=== PATIENT | male | born 1940 | race Caucasian/White ===

== ENCOUNTER 2019-02-07 14:26 | Inpatient (IN) | payer MEDICARE, OTHER ==
[2019-02-07] MEDS ORDERED: Albuterol/Ipratropium 3.0-0.5 MG/3 ML Neb Soln NEB ONE ×2 (15:10→15:40)
--- NOTE | 2019-02-07 15:10 | EDM.PDOC ---
ED HPI GENERAL MEDICAL PROBLEM - General Chief Complaint: Respiratory Problem Stated Complaint: SOB Time Seen by Provider: 02/07/19 15:02 Source of Information: Reports: Patient History Limitations: Reports: Respiratory Distress (Marked.) - History of Present Illness INITIAL COMMENTS - FREE TEXT/NARRATIVE: 78-year-old male presents to the ED with increasing dyspnea with productive sounding cough and wheezing. Patient states she's gradually worsened over the last 10 days. Wraps intermittent chills and fever starting 3 days ago. He has spent the last 2 nights up on the couch hitting his sleep because he is unable to lie flat in bed. He has no history of heart failure. History of left lung cancer treated with radiation and chemotherapy. It's unclear whether not this was successful. He states he coughs up some whitish sputum once in a while. For the most part he can't get any phlegm up . O2 sats only 86% on room air. Comes up to 91% at complete rest. He is not on home oxygen therapy. He does not have a home nebulizer machine either. Appetite is fair using get to meals down a day and feels that he is regaining some of the weight that he lost from the radiation treatment. Bowel function is sluggish. States he is off his finasteride and Flomax and is voiding normally. States he becomes extremely short of breath just walking from the bedroom to the bathroom. Or bathroom to the kitchen. Onset: Gradual Onset Date: 01/24/19 (Actually getting worse over the last 2 weeks.) Duration: Week(s):, Chronic, Getting Worse Location: Reports: Chest (Increased chest congestion and dyspnea on minimal exertion. Now having orthopnea and PND.) Severity: Moderate Improves with: Reports: Rest Worsens with: Reports: Other (Activity or lying flat make it worse.) Context: Denies: Activity, Exercise, Lifting, Sick Contact, Trauma, Other Associated Symptoms: Reports: Cough, cough w sputum, Fever/Chills, Loss of Appetite, Malaise, Shortness of Breath, Weakness. 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 Neuropathic pain in his lower extremities and hands came on after chemotherapy.) - Related Data Allergies Allergy/AdvReac Type Severity Reaction Status Date / Time No Known Allergies Allergy Verified 02/07/19 14:36 Home Meds: Home Meds Albuterol Sulfate [Albuterol Sulfate Hfa] 1 inh INH ASDIRECTED PRN 02/07/19 [ History] Cartilage/Collagen/Bor/Hyalur [Joint Health Tablet] 1 tab PO DAILY 02/07/19 [ History] Finasteride [Proscar] 5 mg PO DAILY 02/07/19 [History] Fish Oil/[place]-3 Fatty Acids [Fish Oil 1,000 MG] 1,000 mg PO DAILY 02/07/19 [ History] Gabapentin [Neurontin] 300 mg PO DAILY 02/07/19 [History] Hydrocodone/Acetaminophen [Hydrocodon-Acetaminophen 5-325] 1 tab PO Q4H PRN [History] Levothyroxine Sodium [Synthroid] 25 mcg PO DAILY 02/07/19 [History] Omeprazole Magnesium [Prilosec Otc] 20 mg PO DAILY 02/07/19 [History] Sertraline [Zoloft] 25 mg PO DAILY 02/07/19 [History] Past Medical History Cardiovascular History: Reports: Hypertension Respiratory History: Reports: Other (See Below) Other Respiratory History: lung cancer Gastrointestinal History: Reports: GERD Genitourinary History: Reports: BPH 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, Peripheral (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 Gabapentin helps some but he often has take Percocet tablets at bedtime to get some sleep as well.) Endocrine/Metabolic History: Reports: Hypothyroidism Oncologic (Cancer) History: Reports: Lung (Left lung cancer diagnosed last fall. He was treated with a course of chemotherapy and 4 weeks of radiation. He was not a candidate for surgical resection of the tumor.) Social & Family History - Tobacco Use Smoking Status *Q: Former Smoker Used Tobacco, but Quit: Yes Month/Year Tobacco Last Used: 2005 - Caffeine Use Caffeine Use: Reports: Coffee - Recreational Drug Use Recreational Drug Use: No - Living Situation & Occupation Living situation: Reports: Single Occupation: Retired ED ROS GENERAL - Review of Systems Review Of Systems: See Below Constitutional: Reports: Chills, Malaise, Weakness, Fatigue, Decreased Appetite , Weight Loss. Denies: Fever HEENT: Reports: Glasses Respiratory: Reports: Shortness of Breath, Wheezing, Cough, Sputum (Severe paroxysmal cough). Denies: Pleuritic Chest Pain, Hemoptysis ( or a minimal sputum production usually clear in color ) Cardiovascular: Reports: Chest Pain, Blood Pressure Problem (From coughing so much.), Dyspnea on Exertion (Sometimes from coughing so hard severe and getting worse.), Lightheadedness, Orthopnea (Has had to sleep sitting up the last couple of nights.). Denies: Claudication ( Problem with hypertension), Edema Endocrine: Reports: Fatigue GI/Abdominal: Reports: Constipation (Issues with constipation at times.), Decreased Appetite : Reports: No Symptoms, Other (Is having a lot of problems with hesitancy and urinary frequency but better now off of chemotherapy.) Musculoskeletal: Reports: Neck Pain, Shoulder Pain, Back Pain (Knees hips low back and shoulders at times.), Joint Pain Skin: Reports: No Symptoms Neurological: Reports: No Symptoms Psychiatric: Reports: No Symptoms ED EXAM, GENERAL - Physical Exam Exam: See Below Exam Limited By: No Limitations General Appearance: Alert, WD/WN, Moderate Distress, Other (O2 sats 86% on room air. They come up to 91% at complete rest. He has hypertension. Respiratory distress 30/m at rest.) Eye Exam: Bilateral Eye: Normal Inspection Throat/Mouth: Other Head: Atraumatic, Normocephalic Neck: Normal Inspection, Supple, Non-Tender, Full Range of Motion. No: Carotid Bruit, Lymphadenopathy (L), Lymphadenopathy (R) Respiratory/Chest: Respiratory Distress (Tachypnea at rest 30/m with O2 sats of only 86% on room air.), Decreased Breath Sounds (Decreased air into the lower 25 % lung wong bilaterally.), Rhonchi (Severe throughout both lung wong), Wheezing Cardiovascular: Regular Rate, Rhythm (Resting tachycardia 10 8/m), No Edema, No Gallop, No JVD, No Murmur, No Rub, Tachycardia Peripheral Pulses: 1+: Posterior Tibial (L), Posterior Tibial (R), Dorsalis Pedis (L), Dorsalis Pedis (R) GI/Abdominal: Normal Bowel Sounds, Soft, Non-Tender, No Organomegaly, No Abnormal Bruit (Findings distended and epigastrium. It's slightly tympanitic to percussion but with some degree of aerophagia.), No Mass, Pelvis Stable, Distended Back Exam: Normal Inspection, Full Range of Motion. No: CVA Tenderness (L), CVA Tenderness (R) Extremities: Normal Inspection, Non-Tender, No Pedal Edema, Other Neurological: Alert, Oriented, CN II-XII Intact, Normal Cognition Psychiatric: Normal Affect, Normal Mood Skin Exam: Warm, Dry, Intact, Normal Color, No Rash EKG INTERPRETATION EKG Date: 02/07/19 Time: 14:53 Rhythm: Other Rate (Beats/Min): 103 [place]: LAD-Left [place] Deviation (-25) P-Wave: Enlarged (Consider biatrial hypertrophy) QRS: Other (Left ventricular hypertrophy with strain pattern Q waves in V1 and V2. Consider old anteroseptal myocardial infarction.) ST-T: Other (Early repolarization pattern diffusely. No signs of of ischemia) QT: Normal EKG Interpretation Comments: Abnormal ECG Course - Vital Signs Last Recorded V/S: Last Vital Signs Temp 36.7 C 02/07/19 14:32 Pulse 118 H 02/07/19 18:23 Resp 30 H 02/07/19 18:23 BP 140/78 02/07/19 18:23 Pulse Ox 92 L 02/07/19 18:23 - Orders/Labs/Meds Orders: Active Orders 24 hr Category Date Time Status EKG 12 Lead [EKG Documentation Completion] [RC] STAT Care 02/07/19 14:50 Active EKG Documentation Completion [RC] STAT Care 02/07/19 15:11 Inactive Oxygen Therapy [RC] ASDIRECTED Care 02/07/19 15:12 Active RT Aerosol Therapy [RC] ASDIRECTED Care 02/07/19 15:10 Active RT Aerosol Therapy [RC] ASDIRECTED Care 02/07/19 15:11 Active CULTURE BLOOD [BC] Stat Lab 02/07/19 15:25 Received CULTURE BLOOD [BC] Stat Lab 02/07/19 15:48 Received Sodium Chloride 0.9% [Normal Saline] 1,000 ml Med 02/07/19 15:15 Active IV ASDIRECTED Blood Culture x2 Reflex Set [OM.PC] Stat Oth 02/07/19 15:13 Ordered Medication Orders Sodium Chloride (Normal Saline) 1,000 mls @ 75 mls/hr IV ASDIRECTED MANUEL Last Admin: 02/07/19 15:54 Dose: 75 mls/hr Labs: Laboratory Tests 02/07/19 02/07/19 02/07/19 Range/Units 15:25 15:25 15:25 WBC 8.06 (4.23-9.07) K/mm3 RBC 4.41 L (4.63-6.08) M/mm3 Hgb 12.6 L (13.7-17.5) gm/L Hct 37.6 L (40.1-51.0) % MCV 85.3 (79.0-92.2) fl MCH 28.6 (25.7-32.2) pg MCHC 33.5 (32.2-35.5) g/dl RDW Std Deviation 44.0 H (35.1-43.9) fL Plt Count 291 (163-337) K/mm3 MPV 9.4 (9.4-12.3) fl Neutrophils % (Manual) 78 H (40-60) % Band Neutrophils % 3 (0-10) % Lymphocytes % (Manual) 6 L (20-40) % Atypical Lymphs % 9 % Monocytes % (Manual) 3 (2-10) % Eosinophils % (Manual) 1 (0.8-7.0) % Basophils % (Manual) 0 L (0.2-1.2) Platelet Estimate Adequate RBC Morph Comment Normal ESR 42 H (0-15) mm/hr Sodium 133 L (136-145) mEq/L Potassium 3.8 (3.5-5.1) mEq/L Chloride 96 L (98-107) mEq/L Carbon Dioxide 32 (21-32) mEq/L Anion Gap 8.8 (5-15) BUN 14 (7-18) mg/dL Creatinine 1.0 (0.7-1.3) mg/dL Est Cr Clr Drug Dosing 56.92 mL/min Estimated GFR (MDRD) > 60 (>60) mL/min BUN/Creatinine Ratio 14.0 (14-18) Glucose 115 (83-115) mg/dL Calcium 8.8 (8.5-10.1) mg/dL Magnesium 1.6 L (1.8-2.4) mg/dl Total Bilirubin 0.3 (0.2-1.0) mg/dL AST 26 (15-37) U/L ALT 30 (16-63) U/L Alkaline Phosphatase 100 (46-116) U/L CK-MB (CK-2) 1.6 (0-3.6) ng/ml Troponin I < 0.017 (0.00-0.056) ng/mL C-Reactive Protein 2.2 H* (<1.0) mg/dL NT-Pro-B Natriuret Pep (0-450) pg/mL Total Protein 7.7 (6.4-8.2) g/dl Albumin 3.3 L (3.4-5.0) g/dl Globulin 4.4 gm/dL Albumin/Globulin Ratio 0.8 L (1-2) Urine Color (Yellow) Urine Appearance (Clear) Urine pH (5.0-8.0) Ur Specific [place] (1.005-1.030) Urine Protein (Negative) Urine Glucose (UA) (Negative) Urine Ketones (Negative) Urine Occult Blood (Negative) Urine Nitrite (Negative) Urine Bilirubin (Negative) Urine Urobilinogen (0.2-1.0) Ur Leukocyte Esterase (Negative) Urine RBC (0-5) /hpf Urine WBC (0-5) /hpf Ur Squamous Epith Cells (0-5) /hpf Urine Bacteria (FEW) /hpf Urine Mucus (FEW) /hpf 02/07/19 02/07/19 Range/Units 15:25 15:40 WBC (4.23-9.07) K/mm3 RBC (4.63-6.08) M/mm3 Hgb (13.7-17.5) gm/L Hct (40.1-51.0) % MCV (79.0-92.2) fl MCH (25.7-32.2) pg MCHC (32.2-35.5) g/dl RDW Std Deviation (35.1-43.9) fL Plt Count (163-337) K/mm3 MPV (9.4-12.3) fl Neutrophils % (Manual) (40-60) % Band Neutrophils % (0-10) % Lymphocytes % (Manual) (20-40) % Atypical Lymphs % % Monocytes % (Manual) (2-10) % Eosinophils % (Manual) (0.8-7.0) % Basophils % (Manual) (0.2-1.2) Platelet Estimate RBC Morph Comment ESR (0-15) mm/hr Sodium (136-145) mEq/L Potassium (3.5-5.1) mEq/L Chloride (98-107) mEq/L Carbon Dioxide (21-32) mEq/L Anion Gap (5-15) BUN (7-18) mg/dL Creatinine (0.7-1.3) mg/dL Est Cr Clr Drug Dosing mL/min Estimated GFR (MDRD) (>60) mL/min BUN/Creatinine Ratio (14-18) Glucose (83-115) mg/dL Calcium (8.5-10.1) mg/dL Magnesium (1.8-2.4) mg/dl Total Bilirubin (0.2-1.0) mg/dL AST (15-37) U/L ALT (16-63) U/L Alkaline Phosphatase (46-116) U/L CK-MB (CK-2) (0-3.6) ng/ml Troponin I (0.00-0.056) ng/mL C-Reactive Protein (<1.0) mg/dL NT-Pro-B Natriuret Pep 80 (0-450) pg/mL Total Protein (6.4-8.2) g/dl Albumin (3.4-5.0) g/dl Globulin gm/dL Albumin/Globulin Ratio (1-2) Urine Color Light yellow (Yellow) Urine Appearance Clear (Clear) Urine pH 6.5 (5.0-8.0) Ur Specific [place] 1.025 (1.005-1.030) Urine Protein 1+ H (Negative) Urine Glucose (UA) Negative (Negative) Urine Ketones Negative (Negative) Urine Occult Blood Trace-intact H (Negative) Urine Nitrite Negative (Negative) Urine Bilirubin Negative (Negative) Urine Urobilinogen 0.2 (0.2-1.0) Ur Leukocyte Esterase Negative (Negative) Urine RBC Not seen (0-5) /hpf Urine WBC Not seen (0-5) /hpf Ur Squamous Epith Cells Not seen (0-5) /hpf Urine Bacteria Occasional (FEW) /hpf Urine Mucus Few (FEW) /hpf Meds: Medications Generic Name Dose Route Start Last Admin Trade Name Freq PRN Reason Stop Dose Admin Sodium Chloride 1,000 mls @ 75 mls/hr 02/07/19 15:15 02/07/19 15:54 Normal Saline IV 75 mls/hr ASDIRECTED MANUEL Administration Discontinued Medications Generic Name Dose Route Start Last Admin Trade Name [place] PRN Reason Stop Dose Admin Albuterol/Ipratropium 3 ml 02/07/19 15:10 02/07/19 15:41 Duoneb 3.0-0.5 Mg/3 Ml NEB 02/07/19 15:11 3 ml ONETIME ONE Administration Albuterol/Ipratropium 3 ml 02/07/19 15:40 02/07/19 16:24 Duoneb 3.0-0.5 Mg/3 Ml NEB 02/07/19 15:41 3 ml ONETIME ONE Administration Hydralazine HCl 10 mg 02/07/19 15:36 02/07/19 15:55 Apresoline IVPUSH 02/07/19 15:37 10 mg ONETIME ONE Administration Lorazepam 0.5 mg 02/07/19 16:10 02/07/19 16:16 Ativan IVPUSH 02/07/19 16:11 0.5 mg ONETIME ONE Administration Methylprednisolone Sodium Succinate 125 mg 02/07/19 15:26 02/07/19 15:58 Solu-Medrol IVPUSH 02/07/19 15:27 125 mg ONETIME ONE Administration - Radiology Interpretation Free Text/Narrative:: 78-year-old male diagnosed with lung cancer 8 months ago and treated with chemotherapy and radiation presents to the ED with gradually worsening dyspnea on minimal exertion and paroxysmal productive sounding cough. Patient is wheezing throughout both lung wong with tachypnea at 30/m O2 sats are 86% on room air. At complete rest he is at 91%. Desaturates on minimal exertion. Lungs sound congested rhonchi throughout all lung wong with bilateral expiratory wheezes throughout both lung wong. Productive sounding cough although he states he rarely gets up any sputum and if he does it's been clear. No fever but perhaps some chills the last 3 days. Appetite has been poor. No history of congestive failure. Plan 1 view chest x-ray. ECG. DuoNeb 2 about a half an hour apart. He will likely require intravenous steroids and I will give him Solu -Medrol 125 mg IV. Routine labs to be collected including a BNP to make sure he does not have a component of congestive heart failure causing his current respiratory distress. Placed on oxygen at 3 L/m by nasal cannula. - Re-Assessments/Exams Free Text/Narrative Re-Assessment/Exam: 02/07/19 15:36 blood pressure remains markedly elevated currently 205/117. I will administer hydralazine 10 mg IV at this time 02/07/19 16:04 chest x-ray done portably reveals a lot of fibrosis and consolidation left upper lobe of the lung. This is presumably the site of his lung cancer which was treated with chemotherapy and radiation. It is impossible to tell by looking at the films whether or not there is still tumor in this area versus radiation-induced necrosis and fibrosis. The right lung field shows mild fibrosis in the right upper lobe. Is no pleural effusion. Right ex silhouette appears to be normal. 02/07/19 16:12 should is extremely anxious. He keeps on asking the nurse to bump up his oxygen which is already at 9798%. There is significant air hunger however. We'll try Ativan 0.5 mg IV to see if we can reduce his air hunger and his hypertension. His BP is down to 170 systolic. Diastolic is difficult to ascertain because he won't hold still long enough. 02/07/19 16:34 blood pressure is markedly improved to 135/78. Heart rate remains elevated at 119. Sinus tachycardia 02/07/19 16:36 White count is 8.06 differential pending hemoglobin is 12.6 with hematocrit of 37.6. Glucose 291,000. Sodium 133 with a potassium of 3.8. Toward 96 with a bicarbonate of 32. Anion gap is 8.8. BUN is 14. Creatinine is 1.0. GFR is greater than 60. Liver function is normal. Troponin I is less than 0.017. C-reactive protein is 2.2. BNP is 80. Total protein is 7.7. Urinalysis shows 1+ proteinuria trace of occult blood. Occasional bacteria appreciated. Therefore all of his palms. Be pulmonary in origin. He is not appear to show any signs or symptoms of cardiac decompensation. 02/07/19 18:26 Differential shows 78% neutrophils and 3% band cells. Sedimentation rate is elevated at 42. Urinalysis is negative. Patient did not do well off of oxygen. He desaturated to 88% on room air. He has improved airflow to both lung bases but still remains extremely wheezy throughout both lung wong and blockers. Present he is not exhibiting a fever. Lab suggest the possibility of fever with elevated sedimentation rate and CRP. I believe he needs admission to the hospital due to hypoxia. I will therefore discuss the case with Dr. Dominguez concrete pipe plant supervisor hospitalist with a view to admission to the hospital the [facility] surgery floor on telemetry. 02/07/19 18:36 I did speak with Dr. Dominguez concrete pipe plant supervisor hospitalist and patient will be admitted to the med surgery floor on telemetry.This is exacerbation of COPD. Persistent I suspect left upper lobe lobe lung cancer. Hypoxia at room air 86-88% primary reason for coming into the hospital. Hopefully will improve with steroids and regular use of DuoNeb/albuterol to help clear lung secretions. Mary Ellen monitored closely for development of fever. Departure - Departure Time of Disposition: 18:39 Disposition: Admitted As Inpatient 66 Condition: Poor Clinical Impression: COPD exacerbation, Hyponatremia Carcinoma of lung Qualifiers: Laterality: left Qualified Code(s): C34.92 - Malignant neoplasm of unspecified part of left bronchus or lung - Discharge Information *PRESCRIPTION DRUG MONITORING PROGRAM REVIEWED*: Not Applicable *COPY OF PRESCRIPTION DRUG MONITORING REPORT IN PATIENT CARI: Not Applicable - My Orders Last 24 Hours: My Active Orders 02/07/19 14:50 EKG 12 Lead [EKG Documentation Completion] [RC] STAT 02/07/19 15:10 RT Aerosol Therapy [RC] ASDIRECTED 02/07/19 15:11 EKG Documentation Completion [RC] STAT RT Aerosol Therapy [RC] ASDIRECTED 02/07/19 15:12 Oxygen Therapy [RC] ASDIRECTED 02/07/19 15:13 Blood Culture x2 Reflex Set [OM.PC] Stat 02/07/19 15:15 Sodium Chloride 0.9% [Normal Saline] 1,000 ml IV ASDIRECTED 02/07/19 15:25 CULTURE BLOOD [BC] Stat 02/07/19 15:48 CULTURE BLOOD [BC] Stat - Assessment/Plan Last 24 Hours: My Active Orders 02/07/19 14:50 EKG 12 Lead [EKG Documentation Completion] [RC] STAT 02/07/19 15:10 RT Aerosol Therapy [RC] ASDIRECTED 02/07/19 15:11 EKG Documentation Completion [RC] STAT RT Aerosol Therapy [RC] ASDIRECTED 02/07/19 15:12 Oxygen Therapy [RC] ASDIRECTED 02/07/19 15:13 Blood Culture x2 Reflex Set [OM.PC] Stat 02/07/19 15:15 Sodium Chloride 0.9% [Normal Saline] 1,000 ml IV ASDIRECTED 02/07/19 15:25 CULTURE BLOOD [BC] Stat 02/07/19 15:48 CULTURE BLOOD [BC] Stat
[2019-02-07] MEDS ORDERED: methylPREDNISolone Sodium Succinate 125 MG/2 ML SDV IVPUSH ONE (15:26)
[2019-02-07] MEDS ORDERED: hydrALAZINE 20 MG/ML SDV IVPUSH ONE (15:36)
[2019-02-07] MEDS: Sodium Chloride 0.9% 1,000 ML IV SCH (15:54)
[2019-02-07] MEDS ORDERED: LORazepam 2 MG/ML SDV IVPUSH ONE (16:10)
--- NOTE | 2019-02-07 17:15 | CR ---
Chest: Frontal view of the chest was obtained. Comparison: No prior chest x-ray. Left upper lung mass is seen with radiating interstitial densities. Uncertain how much of this represents pulmonary mass with radiation change versus possible hemorrhage or even infection. Right lung is clear. Heart size is normal. Slightly prominent right-sided mediastinal soft tissues is seen. Difficult to exclude mild mediastinal adenopathy. Bony structures are grossly intact. Impression: 1. Left upper lung density as noted above. 2. Questionable widening within the right mediastinum as noted above. Diagnostic code #3
[2019-02-07] MEDS ORDERED: Albuterol 0.083% 2.5 MG/3 ML Neb Soln NEB PRN (20:25)
[2019-02-07] MEDS ORDERED: Ondansetron 4 MG Tab.DIS PO PRN (20:52)
--- NOTE | 2019-02-07 21:03 | PCM.HP ---
H&P History of Present Illness - General Date of Service: 02/07/19 Admit Problem/Dx: Admission Diagnosis/Problem Admission Diagnosis/Problem Hypoxia Source of Information: Patient, Police History Limitations: Reports: Respiratory Distress, Other (Poor historian) - History of Present Illness Initial Comments - Free Text/Narative: 78-year-old male with history of lung cancer treated and finished treatment in May 2018. Comes into the emergency room with worsening shortness of breath and cough. Patient has COPD. He states that he often gets short of breath and dyspneic. This is more severe. He states that he has chest pain with deep breaths or with taking his pills. Patient also has hypertension and has not been taking his blood pressure medications. When questioning him it appears that he is on lisinopril of unknown dose. When patient presented to the emergency room his O2 sats were only 86%. He states he has had some chills and fever starting approximately 3 days ago. He is having difficulty lying flat because of shortness of breath. He has no history of heart failure. In the emergency room they did get his oxygenation 91% with complete rest. He is not on home O2. He states his appetite is fair and even trying to regain some of his weight that he lost radiation treatment. He is also not taking his finasteride or Flomax but is voiding normally. He becomes extremely short of breath just walking from the bedroom to the bathroom. Chest x-ray was performed which showed left upper lobe changes consistent with either infection, hemorrhage, or pulmonary mass with radiation change. Patient was given supplemental 125 mg IV and DuoNeb's 2. Patient significantly elevated blood pressure of 205/117 and he was given hydralazine 10 mg IV. Patient was given Ativan 0.5 mg IV to decrease his air hunger and hypertension. Patient was very anxious and kept asking to have his oxygen turned up. - Related Data Allergies/Adverse Reactions: Allergies Allergy/AdvReac Type Severity Reaction Status Date / Time No Known Allergies Allergy Verified 02/07/19 14:36 Home Medications: Home Meds Albuterol Sulfate [Albuterol Sulfate Hfa] 1 inh INH ASDIRECTED PRN 02/07/19 [ History] Cartilage/Collagen/Bor/Hyalur [Joint Health Tablet] 1 tab PO DAILY 02/07/19 [ History] Finasteride [Proscar] 5 mg PO DAILY 02/07/19 [History] Fish Oil/Bailey-3 Fatty Acids [Fish Oil 1,000 MG] 1,000 mg PO DAILY 02/07/19 [ History] Gabapentin [Neurontin] 300 mg PO DAILY 02/07/19 [History] Hydrocodone/Acetaminophen [Hydrocodon-Acetaminophen 5-325] 1 tab PO Q4H PRN [History] Levothyroxine Sodium [Synthroid] 25 mcg PO DAILY 02/07/19 [History] Omeprazole Magnesium [Prilosec Otc] 20 mg PO DAILY 02/07/19 [History] Sertraline [Zoloft] 25 mg PO DAILY 02/07/19 [History] Past Medical History HEENT History: Reports: Hard of Hearing, Impaired Vision Cardiovascular History: Reports: Hypertension Respiratory History: Reports: Pneumonia, Recurrent, Other (See Below) Other Respiratory History: lung cancer Gastrointestinal History: Reports: GERD Genitourinary History: Reports: BPH Musculoskeletal History: Reports: None 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, Peripheral Psychiatric History: Reports: None, Depression Endocrine/Metabolic History: Reports: Hypothyroidism Oncologic (Cancer) History: Reports: Lung - Infectious Disease History Infectious Disease History: Reports: None - Past Surgical History HEENT Surgical History: Reports: None Cardiovascular Surgical History: Reports: None Respiratory Surgical History: Reports: Lung Biopsies GI Surgical History: Reports: None Male Surgical History: Reports: None Endocrine Surgical History: Reports: None Neurological Surgical History: Reports: None Musculoskeletal Surgical History: Reports: None Oncologic Surgical History: Reports: None Social & Family History - Family History Family Medical History: Noncontributory - Tobacco Use Smoking Status *Q: Former Smoker Years of Tobacco use: 15 Used Tobacco, but Quit: Yes Month/Year Tobacco Last Used: quit in 1974 Second Hand Smoke Exposure: No - Caffeine Use Caffeine Use: Reports: None - Recreational Drug Use Recreational Drug Use: No - Living Situation & Occupation Living situation: Reports: Single Occupation: Retired H&P Review of Systems - Review of Systems: Review Of Systems: ROS reveals no pertinent complaints other than HPI. Exam - Exam Exam: See Below - Vital Signs Vital Signs: Last Vital Signs Temp 99.1 F 02/07/19 19:34 Pulse 111 H 02/07/19 19:34 Resp 28 H 02/07/19 19:34 BP 142/83 H 02/07/19 19:34 Pulse Ox 94 L 02/07/19 19:34 Weight: 172 lb 9.6 oz - Exam Quality Assessment: Supplemental Oxygen General: Cooperative, Mild Distress, Sedated HEENT: Conjunctiva Clear, Mucosa Moist & [place], Posterior Pharynx Clear Neck: Supple, Trachea Midline Lungs: Rhonchi (Rhonchi throughout both lung wong). No: Normal Respiratory Effort (Mildly increased respiratory rate and effort.) Cardiovascular: Regular Rate, Regular Rhythm GI/Abdominal Exam: Normal Bowel Sounds, Soft, Non-Tender, No Distention Back Exam: Normal Inspection, Full Range of Motion Extremities: Normal Inspection, Normal Range of Motion, No Pedal Edema, Normal Capillary Refill Neurological: Cranial Nerves Intact, Reflexes Equal Bilateral Neuro Extensive - Mental Status: Inattentive. No: Normal Cognition Psychiatric: No: Alert - Patient Data Lab Results Last 24 hrs: Laboratory Results - last 24 hr 02/07/19 02/07/19 02/07/19 Range/Units 15:25 15:25 15:25 WBC 8.06 (4.23-9.07) K/mm3 RBC 4.41 L (4.63-6.08) M/mm3 Hgb 12.6 L (13.7-17.5) gm/L Hct 37.6 L (40.1-51.0) % MCV 85.3 (79.0-92.2) fl MCH 28.6 (25.7-32.2) pg MCHC 33.5 (32.2-35.5) g/dl RDW Std Deviation 44.0 H (35.1-43.9) fL Plt Count 291 (163-337) K/mm3 MPV 9.4 (9.4-12.3) fl Neutrophils % (Manual) 78 H (40-60) % Band Neutrophils % 3 (0-10) % Lymphocytes % (Manual) 6 L (20-40) % Atypical Lymphs % 9 % Monocytes % (Manual) 3 (2-10) % Eosinophils % (Manual) 1 (0.8-7.0) % Basophils % (Manual) 0 L (0.2-1.2) Platelet Estimate Adequate RBC Morph Comment Normal ESR 42 H (0-15) mm/hr Sodium 133 L (136-145) mEq/L Potassium 3.8 (3.5-5.1) mEq/L Chloride 96 L (98-107) mEq/L Carbon Dioxide 32 (21-32) mEq/L Anion Gap 8.8 (5-15) BUN 14 (7-18) mg/dL Creatinine 1.0 (0.7-1.3) mg/dL Est Cr Clr Drug Dosing 56.92 mL/min Estimated GFR (MDRD) > 60 (>60) mL/min BUN/Creatinine Ratio 14.0 (14-18) Glucose 115 (83-115) mg/dL Calcium 8.8 (8.5-10.1) mg/dL Magnesium 1.6 L (1.8-2.4) mg/dl Total Bilirubin 0.3 (0.2-1.0) mg/dL AST 26 (15-37) U/L ALT 30 (16-63) U/L Alkaline Phosphatase 100 (46-116) U/L CK-MB (CK-2) 1.6 (0-3.6) ng/ml Troponin I < 0.017 (0.00-0.056) ng/mL C-Reactive Protein 2.2 H* (<1.0) mg/dL NT-Pro-B Natriuret Pep (0-450) pg/mL Total Protein 7.7 (6.4-8.2) g/dl Albumin 3.3 L (3.4-5.0) g/dl Globulin 4.4 gm/dL Albumin/Globulin Ratio 0.8 L (1-2) Urine Color (Yellow) Urine Appearance (Clear) Urine pH (5.0-8.0) Ur Specific Reserve (1.005-1.030) Urine Protein (Negative) Urine Glucose (UA) (Negative) Urine Ketones (Negative) Urine Occult Blood (Negative) Urine Nitrite (Negative) Urine Bilirubin (Negative) Urine Urobilinogen (0.2-1.0) Ur Leukocyte Esterase (Negative) Urine RBC (0-5) /hpf Urine WBC (0-5) /hpf Ur Squamous Epith Cells (0-5) /hpf Urine Bacteria (FEW) /hpf Urine Mucus (FEW) /hpf 02/07/19 02/07/19 Range/Units 15:25 15:40 WBC (4.23-9.07) K/mm3 RBC (4.63-6.08) M/mm3 Hgb (13.7-17.5) gm/L Hct (40.1-51.0) % MCV (79.0-92.2) fl MCH (25.7-32.2) pg MCHC (32.2-35.5) g/dl RDW Std Deviation (35.1-43.9) fL Plt Count (163-337) K/mm3 MPV (9.4-12.3) fl Neutrophils % (Manual) (40-60) % Band Neutrophils % (0-10) % Lymphocytes % (Manual) (20-40) % Atypical Lymphs % % Monocytes % (Manual) (2-10) % Eosinophils % (Manual) (0.8-7.0) % Basophils % (Manual) (0.2-1.2) Platelet Estimate RBC Morph Comment ESR (0-15) mm/hr Sodium (136-145) mEq/L Potassium (3.5-5.1) mEq/L Chloride (98-107) mEq/L Carbon Dioxide (21-32) mEq/L Anion Gap (5-15) BUN (7-18) mg/dL Creatinine (0.7-1.3) mg/dL Est Cr Clr Drug Dosing mL/min Estimated GFR (MDRD) (>60) mL/min BUN/Creatinine Ratio (14-18) Glucose (83-115) mg/dL Calcium (8.5-10.1) mg/dL Magnesium (1.8-2.4) mg/dl Total Bilirubin (0.2-1.0) mg/dL AST (15-37) U/L ALT (16-63) U/L Alkaline Phosphatase (46-116) U/L CK-MB (CK-2) (0-3.6) ng/ml Troponin I (0.00-0.056) ng/mL C-Reactive Protein (<1.0) mg/dL NT-Pro-B Natriuret Pep 80 (0-450) pg/mL Total Protein (6.4-8.2) g/dl Albumin (3.4-5.0) g/dl Globulin gm/dL Albumin/Globulin Ratio (1-2) Urine Color Light yellow (Yellow) Urine Appearance Clear (Clear) Urine pH 6.5 (5.0-8.0) Ur Specific Reserve 1.025 (1.005-1.030) Urine Protein 1+ H (Negative) Urine Glucose (UA) Negative (Negative) Urine Ketones Negative (Negative) Urine Occult Blood Trace-intact H (Negative) Urine Nitrite Negative (Negative) Urine Bilirubin Negative (Negative) Urine Urobilinogen 0.2 (0.2-1.0) Ur Leukocyte Esterase Negative (Negative) Urine RBC Not seen (0-5) /hpf Urine WBC Not seen (0-5) /hpf Ur Squamous Epith Cells Not seen (0-5) /hpf Urine Bacteria Occasional (FEW) /hpf Urine Mucus Few (FEW) /hpf Result Diagrams: 02/07/19 15:25 02/07/19 15:25 - Problem List (1) COPD exacerbation SNOMED Code(s): 929246699 ICD Code: J44.1 - CHRONIC OBSTRUCTIVE PULMONARY DISEASE W (ACUTE) EXACERBATION Status: Acute Current Visit: Yes (2) Carcinoma of lung SNOMED Code(s): 315578065 ICD Code: C34.90 - MALIGNANT NEOPLASM OF UNSP PART OF UNSP BRONCHUS OR LUNG Status: Acute Current Visit: Yes Qualifiers: Laterality: left Qualified Code(s): C34.92 - Malignant neoplasm of unspecified part of left bronchus or lung (3) Hyponatremia SNOMED Code(s): 56066822 ICD Code: E87.1 - HYPO-OSMOLALITY AND HYPONATREMIA Status: Acute Current Visit: Yes (4) HTN (hypertension) SNOMED Code(s): 91014266 ICD Code: I10 - ESSENTIAL (PRIMARY) HYPERTENSION Status: Acute Current Visit: Yes Problem List Initiated/Reviewed/Updated: Yes Orders Last 24hrs: Active Orders 24 hr Category Date Time Status Admission Status [Patient Status] [ADT] Routine ADT 02/07/19 18:41 Active Antiembolic Devices [RC] PER UNIT ROUTINE Care 02/07/19 20:54 Ordered Bedrest Bathroom Privileges [RC] ASDIRECTED Care 02/07/19 20:52 Ordered EKG Documentation Completion [RC] STAT Care 02/07/19 15:11 Inactive Flutter Valve Therapy [RT Chest Physiotherapy] [RC] Care 02/07/19 20:24 Active ASDIRECTED Height and Weight [RC] DAILY Care 02/07/19 20:52 Ordered Incentive Spirometry [RT Incentive Spirometry] [RC] Care 02/07/19 20:23 Active ASDIRECTED Intake and Output [RC] QSHIFT Care 02/07/19 20:52 Ordered Oxygen Therapy [RC] ASDIRECTED Care 02/07/19 15:12 Active Oxygen Therapy [RC] PRN Care 02/07/19 20:52 Ordered RT Aerosol Therapy [RC] ASDIRECTED Care 02/07/19 20:26 Active Up With Assistance [RC] ASDIRECTED Care 02/07/19 20:52 Ordered VTE/DVT Education [RC] PER UNIT ROUTINE Care 02/07/19 20:52 Ordered Vital Signs [RC] Q4H Care 02/07/19 20:52 Ordered Consult to Respiratory Therapy [Respiratory Care Assess Cons 02/07/19 20:27 Active and Treatment] [CONS] Routine OT Evaluation and Treatment [CONS] Routine Cons 02/07/19 20:52 Ordered PT Evaluation and Treatment [CONS] Routine Cons 02/07/19 20:52 Ordered Regular Diet [DIET] Diet 02/07/19 Breakfast Ordered CBC WITH AUTO DIFF [HEME] AM Lab 02/08/19 05:11 Ordered COMPREHENSIVE METABOLIC PN,CMP [CHEM] AM Lab 02/08/19 05:11 Ordered CULTURE BLOOD [BC] Stat Lab 02/07/19 15:25 Received CULTURE BLOOD [BC] Stat Lab 02/07/19 15:48 Received CULTURE SPUTUM + SMEAR [RM] Stat Lab 02/07/19 20:52 Ordered MAGNESIUM [CHEM] AM Lab 02/08/19 05:11 Ordered RESPIRATORY PANEL Routine Lab 02/07/19 20:27 Ordered Acetaminophen [Tylenol] Med 02/07/19 20:52 Ordered 650 mg PO Q4H PRN Albuterol [Proventil Neb Soln] Med 02/07/19 20:25 Active 2.5 mg NEB Q2H PRN Albuterol/Ipratropium [DuoNeb 3.0-0.5 MG/3 ML] Med 02/07/19 22:00 Active 3 ml NEB Q4HRRT Gabapentin [Neurontin] Med 02/07/19 21:00 Active 300 mg PO BEDTIME Levothyroxine Med 02/08/19 06:00 Active 25 mcg PO ACBREAKFAST Ondansetron [Zofran ODT] Med 02/07/19 20:52 Ordered 4 mg PO Q4H PRN Pantoprazole [ProTONIX] Med 02/08/19 07:00 Active 40 mg PO DAILY@0700 Sertraline [Zoloft] Med 02/08/19 09:00 Active 25 mg PO DAILY Sodium Chloride 0.9% [Normal Saline] 1,000 ml Med 02/07/19 15:15 Active IV ASDIRECTED cefTRIAXone [Rocephin] Med 02/08/19 20:50 Ordered 1 gm IM Q24H guaiFENesin [Mucinex] Med 02/07/19 21:00 Active 600 mg PO BID predniSONE Med 02/07/19 21:00 Ordered 40 mg PO WITHBREAKFAST Blood Culture x2 Reflex Set [OM.PC] Stat Oth 02/07/19 15:13 Ordered Sequential Compression Device [OM.PC] Per Unit Routine Oth 02/07/19 20:53 Ordered Resuscitation Status Routine Resus Stat 02/07/19 19:55 Ordered Medication Orders Albuterol (Proventil Neb Soln) 2.5 mg NEB Q2H PRN PRN Reason: Dyspnea Albuterol/Ipratropium (Duoneb 3.0-0.5 Mg/3 Ml) 3 ml NEB Q4HRRT [facility] Ceftriaxone Sodium (Rocephin) 1 gm IM Q24H [facility] Gabapentin (Neurontin) 300 mg PO BEDTIME [facility] Guaifenesin (Mucinex) 600 mg PO BID [facility] Sodium Chloride (Normal Saline) 1,000 mls @ 75 mls/hr IV ASDIRECTED MANUEL Last Admin: 02/07/19 15:54 Dose: 75 mls/hr Levothyroxine Sodium (Levothyroxine) 25 mcg PO ACBREAKFAST [facility] Pantoprazole Sodium (Protonix) 40 mg PO DAILY@0700 [facility] Prednisone (Prednisone) 40 mg PO WITHBREAKFAST MANUEL Sertraline HCl (Zoloft) 25 mg PO DAILY [facility] Assessment/Plan Comment:: Chronic obstructive pulmonary disease with acute exacerbation * Patient comes in with increasing cough with dyspnea and hypoxia. * Patient had some improvement with 2 DuoNeb treatments in the emergency room. * Chest x-ray is critical for left upper lobe infiltrate. * Given Solu-Medrol in the emergency room. * Patient will start Rocephin 1 g IV every 24 hours. * Prednisone 40 mg tonight and 40 mg in the morning. * DuoNeb every 4 hours and albuterol nebulizer every 2 hours when necessary * Respiratory therapy consult, incentive spirometer, flutter valve Hypertension * Patient has significantly elevated blood pressure in the emergency room requiring IV hydralazine 10 mg. * Patient believes he was on lisinopril in the past but did not know the dose. * I will start him on lisinopril 10 mg daily at bedtime. Hypomagnesemia/hyponatremia * 2 g IV magnesium and recheck in the morning * Repeat CMP in the morning Chronic medical problems to include: Lung cancer, hypothyroidism, BPH, depression CODE STATUS: Full code Anticipated length of stay 3 days
[2019-02-07] MEDS ORDERED: Magnesium Sulfate/Water 2 GM in Premix Bag 1 BAG IV ONE (21:06)
[2019-02-07] MEDS: Albuterol/Ipratropium 3.0-0.5 MG/3 ML Neb Soln NEB SCH (21:41)
[2019-02-07] MEDS: predniSONE 20 MG Tab PO SCH (21:52)
[2019-02-07] MEDS: guaiFENesin 600 MG Tab.ER PO SCH (21:52)
[2019-02-07] MEDS: Gabapentin 300 MG Cap PO SCH (21:53)
[2019-02-07] MEDS: Lisinopril 10 MG Tab PO SCH (21:53)
[2019-02-08] MEDS: Albuterol/Ipratropium 3.0-0.5 MG/3 ML Neb Soln NEB SCH ×6 (01:35→21:26)
[2019-02-08] MEDS: Acetaminophen 325 MG Tab PO PRN ×2 (02:57→08:59)
[2019-02-08] MEDS: cefTRIAXone 1 GM in Sodium Chloride 0.9% 100 ML IV SCH (03:00)
[2019-02-08] MEDS: Levothyroxine 25 MCG Tab PO SCH (06:31)
[2019-02-08] MEDS: Pantoprazole 40 MG Tab.CR PO SCH (06:31)
[2019-02-08] MEDS: Sodium Chloride 0.9% 1,000 ML IV SCH ×2 (06:41→21:02)
[2019-02-08] MEDS: predniSONE 20 MG Tab PO SCH (07:31)
[2019-02-08] MEDS: Sertraline 25 MG Tab PO SCH (08:11)
[2019-02-08] MEDS: guaiFENesin 600 MG Tab.ER PO SCH ×2 (08:14→21:04)
[2019-02-08] MEDS: Sodium Chloride/Potassium Chloride Tab PO SCH ×2 (08:14→21:05)
[2019-02-08] MEDS: Acetaminophen/HYDROcodone 325-5 MG Tab PO PRN ×2 (10:29→15:56)
--- NOTE | 2019-02-08 11:47 | PCM.PN ---
- General Info Date of Service: 02/08/19 Admission Dx/Problem (Free Text): Admission Diagnosis/Problem Admission Diagnosis/Problem Hypoxia Subjective Update: Patient does complain of epigastric pain this morning. He states he has had significant pain over the last year related to his cancer diagnosis. He does get [place] 02/21/25 at home and occasionally 7.5. Overall he does better with his breathing. He still having a wet cough. He rested comfortably. - Review of Systems General: Reports: Fatigue. Denies: Fever HEENT: Reports: No Symptoms Pulmonary: Reports: Shortness of Breath, Cough, Wheezing Cardiovascular: Reports: No Symptoms Gastrointestinal: Reports: Abdominal Pain (Epigastric discomfort) - Patient Data Vitals - Most Recent: Last Vital Signs Temp 98.4 F 02/08/19 08:02 Pulse 90 02/08/19 08:02 Resp 22 H 02/08/19 08:02 BP 140/71 02/08/19 08:02 Pulse Ox 95 02/08/19 09:42 Weight - Most Recent: 169 lb 11.2 oz I&O - Last 24 Hours: Intake & Output 02/07/19 02/08/19 02/08/19 22:59 06:59 14:59 Intake Total 717 180 Output Total 500 Balance 217 180 Lab Results Last 24 Hours: Laboratory Results - last 24 hr 02/07/19 02/07/19 02/07/19 Range/Units 15:25 15:25 15:25 WBC 8.06 (4.23-9.07) K/mm3 RBC 4.41 L (4.63-6.08) M/mm3 Hgb 12.6 L (13.7-17.5) gm/L Hct 37.6 L (40.1-51.0) % MCV 85.3 (79.0-92.2) fl MCH 28.6 (25.7-32.2) pg MCHC 33.5 (32.2-35.5) g/dl RDW Std Deviation 44.0 H (35.1-43.9) fL Plt Count 291 (163-337) K/mm3 MPV 9.4 (9.4-12.3) fl Neut % (Auto) (34.0-67.9) % Lymph % (Auto) (21.8-53.1) % [place] % (Auto) (5.3-12.2) % Eos % (Auto) (0.8-7.0) Baso % (Auto) (0.1-1.2) % Neut # (Auto) (1.78-5.38) K/mm3 Lymph # (Auto) (1.32-3.57) K/mm3 Knox # (Auto) (0.30-0.82) K/mm3 Eos # (Auto) (0.04-0.54) K/mm3 Baso # (Auto) (0.01-0.08) K/mm3 Neutrophils % (Manual) 78 H (40-60) % Band Neutrophils % 3 (0-10) % Lymphocytes % (Manual) 6 L (20-40) % Atypical Lymphs % 9 % Monocytes % (Manual) 3 (2-10) % Eosinophils % (Manual) 1 (0.8-7.0) % Basophils % (Manual) 0 L (0.2-1.2) Manual Slide Review Platelet Estimate Adequate RBC Morph Comment Normal ESR 42 H (0-15) mm/hr Sodium 133 L (136-145) mEq/L Potassium 3.8 (3.5-5.1) mEq/L Chloride 96 L (98-107) mEq/L Carbon Dioxide 32 (21-32) mEq/L Anion Gap 8.8 (5-15) BUN 14 (7-18) mg/dL Creatinine 1.0 (0.7-1.3) mg/dL Est Cr Clr Drug Dosing 56.92 mL/min Estimated GFR (MDRD) > 60 (>60) mL/min BUN/Creatinine Ratio 14.0 (14-18) Glucose 115 (83-115) mg/dL Calcium 8.8 (8.5-10.1) mg/dL Magnesium 1.6 L (1.8-2.4) mg/dl Total Bilirubin 0.3 (0.2-1.0) mg/dL AST 26 (15-37) U/L ALT 30 (16-63) U/L Alkaline Phosphatase 100 (46-116) U/L CK-MB (CK-2) 1.6 (0-3.6) ng/ml Troponin I < 0.017 (0.00-0.056) ng/mL C-Reactive Protein 2.2 H* (<1.0) mg/dL NT-Pro-B Natriuret Pep (0-450) pg/mL Total Protein 7.7 (6.4-8.2) g/dl Albumin 3.3 L (3.4-5.0) g/dl Globulin 4.4 gm/dL Albumin/Globulin Ratio 0.8 L (1-2) Urine Color (Yellow) Urine Appearance (Clear) Urine pH (5.0-8.0) Ur Specific Qulin (1.005-1.030) Urine Protein (Negative) Urine Glucose (UA) (Negative) Urine Ketones (Negative) Urine Occult Blood (Negative) Urine Nitrite (Negative) Urine Bilirubin (Negative) Urine Urobilinogen (0.2-1.0) Ur Leukocyte Esterase (Negative) Urine RBC (0-5) /hpf Urine WBC (0-5) /hpf Ur Squamous Epith Cells (0-5) /hpf Urine Bacteria (FEW) /hpf Urine Mucus (FEW) /hpf 02/07/19 02/07/19 02/08/19 Range/Units 15:25 15:40 06:30 WBC 15.67 H (4.23-9.07) K/mm3 RBC 4.31 L (4.63-6.08) M/mm3 Hgb 12.3 L (13.7-17.5) gm/L Hct 36.2 L (40.1-51.0) % MCV 84.0 (79.0-92.2) fl MCH 28.5 (25.7-32.2) pg MCHC 34.0 (32.2-35.5) g/dl RDW Std Deviation 44.0 H (35.1-43.9) fL Plt Count 265 (163-337) K/mm3 MPV 9.3 L (9.4-12.3) fl Neut % (Auto) 90.7 H (34.0-67.9) % Lymph % (Auto) 3.2 L (21.8-53.1) % Knox % (Auto) 5.4 (5.3-12.2) % Eos % (Auto) 0 L (0.8-7.0) Baso % (Auto) 0.1 (0.1-1.2) % Neut # (Auto) 14.21 H (1.78-5.38) K/mm3 Lymph # (Auto) 0.50 L (1.32-3.57) K/mm3 Knox # (Auto) 0.85 H (0.30-0.82) K/mm3 Eos # (Auto) 0.00 L (0.04-0.54) K/mm3 Baso # (Auto) 0.01 (0.01-0.08) K/mm3 Neutrophils % (Manual) (40-60) % Band Neutrophils % (0-10) % Lymphocytes % (Manual) (20-40) % Atypical Lymphs % % Monocytes % (Manual) (2-10) % Eosinophils % (Manual) (0.8-7.0) % Basophils % (Manual) (0.2-1.2) Manual Slide Review Abnormal smear Platelet Estimate RBC Morph Comment ESR (0-15) mm/hr Sodium (136-145) mEq/L Potassium (3.5-5.1) mEq/L Chloride (98-107) mEq/L Carbon Dioxide (21-32) mEq/L Anion Gap (5-15) BUN (7-18) mg/dL Creatinine (0.7-1.3) mg/dL Est Cr Clr Drug Dosing mL/min Estimated GFR (MDRD) (>60) mL/min BUN/Creatinine Ratio (14-18) Glucose (83-115) mg/dL Calcium (8.5-10.1) mg/dL Magnesium (1.8-2.4) mg/dl Total Bilirubin (0.2-1.0) mg/dL AST (15-37) U/L ALT (16-63) U/L Alkaline Phosphatase (46-116) U/L CK-MB (CK-2) (0-3.6) ng/ml Troponin I (0.00-0.056) ng/mL C-Reactive Protein (<1.0) mg/dL NT-Pro-B Natriuret Pep 80 (0-450) pg/mL Total Protein (6.4-8.2) g/dl Albumin (3.4-5.0) g/dl Globulin gm/dL Albumin/Globulin Ratio (1-2) Urine Color Light yellow (Yellow) Urine Appearance Clear (Clear) Urine pH 6.5 (5.0-8.0) Ur Specific Qulin 1.025 (1.005-1.030) Urine Protein 1+ H (Negative) Urine Glucose (UA) Negative (Negative) Urine Ketones Negative (Negative) Urine Occult Blood Trace-intact H (Negative) Urine Nitrite Negative (Negative) Urine Bilirubin Negative (Negative) Urine Urobilinogen 0.2 (0.2-1.0) Ur Leukocyte Esterase Negative (Negative) Urine RBC Not seen (0-5) /hpf Urine WBC Not seen (0-5) /hpf Ur Squamous Epith Cells Not seen (0-5) /hpf Urine Bacteria Occasional (FEW) /hpf Urine Mucus Few (FEW) /hpf 02/08/19 02/08/19 Range/Units 06:30 06:30 WBC (4.23-9.07) K/mm3 RBC (4.63-6.08) M/mm3 Hgb (13.7-17.5) gm/L Hct (40.1-51.0) % MCV (79.0-92.2) fl MCH (25.7-32.2) pg MCHC (32.2-35.5) g/dl RDW Std Deviation (35.1-43.9) fL Plt Count (163-337) K/mm3 MPV (9.4-12.3) fl Neut % (Auto) (34.0-67.9) % Lymph % (Auto) (21.8-53.1) % Knox % (Auto) (5.3-12.2) % Eos % (Auto) (0.8-7.0) Baso % (Auto) (0.1-1.2) % Neut # (Auto) (1.78-5.38) K/mm3 Lymph # (Auto) (1.32-3.57) K/mm3 Knox # (Auto) (0.30-0.82) K/mm3 Eos # (Auto) (0.04-0.54) K/mm3 Baso # (Auto) (0.01-0.08) K/mm3 Neutrophils % (Manual) (40-60) % Band Neutrophils % (0-10) % Lymphocytes % (Manual) (20-40) % Atypical Lymphs % % Monocytes % (Manual) (2-10) % Eosinophils % (Manual) (0.8-7.0) % Basophils % (Manual) (0.2-1.2) Manual Slide Review Platelet Estimate RBC Morph Comment ESR (0-15) mm/hr Sodium 130 L (136-145) mEq/L Potassium 3.7 (3.5-5.1) mEq/L Chloride 94 L (98-107) mEq/L Carbon Dioxide 24 (21-32) mEq/L Anion Gap 15.7 H (5-15) BUN 15 (7-18) mg/dL Creatinine 1.0 (0.7-1.3) mg/dL Est Cr Clr Drug Dosing 56.92 mL/min Estimated GFR (MDRD) > 60 (>60) mL/min BUN/Creatinine Ratio 15.0 (14-18) Glucose 158 H (83-115) mg/dL Calcium 8.7 (8.5-10.1) mg/dL Magnesium 1.9 (1.8-2.4) mg/dl Total Bilirubin 0.4 (0.2-1.0) mg/dL AST 22 (15-37) U/L ALT 25 (16-63) U/L Alkaline Phosphatase 71 (46-116) U/L CK-MB (CK-2) (0-3.6) ng/ml Troponin I < 0.017 (0.00-0.056) ng/mL C-Reactive Protein (<1.0) mg/dL NT-Pro-B Natriuret Pep (0-450) pg/mL Total Protein 7.5 (6.4-8.2) g/dl Albumin 3.0 L (3.4-5.0) g/dl Globulin 4.5 gm/dL Albumin/Globulin Ratio 0.7 L (1-2) Urine Color (Yellow) Urine Appearance (Clear) Urine pH (5.0-8.0) Ur Specific Qulin (1.005-1.030) Urine Protein (Negative) Urine Glucose (UA) (Negative) Urine Ketones (Negative) Urine Occult Blood (Negative) Urine Nitrite (Negative) Urine Bilirubin (Negative) Urine Urobilinogen (0.2-1.0) Ur Leukocyte Esterase (Negative) Urine RBC (0-5) /hpf Urine WBC (0-5) /hpf Ur Squamous Epith Cells (0-5) /hpf Urine Bacteria (FEW) /hpf Urine Mucus (FEW) /hpf Art Results Last 24 Hours: Microbiology 02/08/19 06:13 Gram Stain - Preliminary Sputum - Expectorated Med Orders - Current: Current Medications Acetaminophen (Tylenol) 650 mg PO Q4H PRN PRN Reason: Pain (Mild 1-3)/fever Last Admin: 02/08/19 08:59 Dose: 650 mg Hydrocodone Bitart/Acetaminophen ([place] 325-5 Mg) 1.5 tab PO Q4H PRN PRN Reason: Pain Last Admin: 02/08/19 10:29 Dose: 1.5 tab Albuterol (Proventil Neb Soln) 2.5 mg NEB Q2H PRN PRN Reason: Dyspnea Albuterol/Ipratropium (Duoneb 3.0-0.5 Mg/3 Ml) 3 ml NEB Q4HRRT ON LICENSE OF [facility] Last Admin: 02/08/19 09:40 Dose: 3 ml Gabapentin (Neurontin) 300 mg PO BEDTIME ON LICENSE OF [facility] Last Admin: 02/07/19 21:53 Dose: 300 mg Guaifenesin (Mucinex) 600 mg PO BID ON LICENSE OF [facility] Last Admin: 02/08/19 08:14 Dose: 600 mg Sodium Chloride (Normal Saline) 1,000 mls @ 75 mls/hr IV ASDIRECTED ON LICENSE OF [facility] Last Admin: 02/08/19 06:41 Dose: 75 mls/hr Ceftriaxone Sodium 1 gm/ (Sodium Chloride) 100 mls @ 200 mls/hr IV Q24H ON LICENSE OF [facility] Last Admin: 02/08/19 03:00 Dose: 200 mls/hr Levothyroxine Sodium (Levothyroxine) 25 mcg PO ACBREAKFAST ON LICENSE OF [facility] Last Admin: 02/08/19 06:31 Dose: 25 mcg Lisinopril (Prinivil) 10 mg PO BEDTIME ON LICENSE OF [facility] Last Admin: 02/07/19 21:53 Dose: 10 mg Ondansetron HCl (Zofran Odt) 4 mg PO Q4H PRN PRN Reason: nausea, able to take PO Oral Electrolytes (Thermotabs) 1 each PO BID ON LICENSE OF [facility] Last Admin: 02/08/19 08:14 Dose: 1 each Pantoprazole Sodium (Protonix) 40 mg PO DAILY@0700 ON LICENSE OF [facility] Last Admin: 02/08/19 06:31 Dose: 40 mg Prednisone (Prednisone) 40 mg PO WITHBREAKFAST ON LICENSE OF [facility] Last Admin: 02/08/19 07:31 Dose: 40 mg Sertraline HCl (Zoloft) 25 mg PO DAILY MANUEL Last Admin: 02/08/19 08:11 Dose: 25 mg Discontinued Medications Albuterol/Ipratropium (Duoneb 3.0-0.5 Mg/3 Ml) 3 ml NEB ONETIME ONE Stop: 02/07/19 15:11 Last Admin: 02/07/19 15:41 Dose: 3 ml Albuterol/Ipratropium (Duoneb 3.0-0.5 Mg/3 Ml) 3 ml NEB ONETIME ONE Stop: 02/07/19 15:41 Last Admin: 02/07/19 16:24 Dose: 3 ml Hydralazine HCl (Apresoline) 10 mg IVPUSH ONETIME ONE Stop: 02/07/19 15:37 Last Admin: 02/07/19 15:55 Dose: 10 mg Magnesium Sulfate 2 gm/ Premix 50 mls @ 25 mls/hr IV ONETIME ONE Stop: 02/07/19 23:05 Last Admin: 02/07/19 21:47 Dose: 25 mls/hr Lorazepam (Ativan) 0.5 mg IVPUSH ONETIME ONE Stop: 02/07/19 16:11 Last Admin: 02/07/19 16:16 Dose: 0.5 mg Methylprednisolone Sodium Succinate (Solu-Medrol) 125 mg IVPUSH ONETIME ONE Stop: 02/07/19 15:27 Last Admin: 02/07/19 15:58 Dose: 125 mg - Exam Quality Assessment: Supplemental Oxygen General: Alert, Oriented HEENT: Pupils Equal Neck: Supple Lungs: Normal Respiratory Effort, Rhonchi, Wheezing Cardiovascular: Regular Rate, Regular Rhythm GI/Abdominal Exam: Normal Bowel Sounds, Soft, Non-Tender, No Distention Extremities: Normal Inspection, Normal Range of Motion, No Pedal Edema - Problem List & Annotations (1) COPD exacerbation SNOMED Code(s): 631844193 Code(s): J44.1 - CHRONIC OBSTRUCTIVE PULMONARY DISEASE W (ACUTE) EXACERBATION Status: Acute Current Visit: Yes (2) Carcinoma of lung SNOMED Code(s): 771763705 Code(s): C34.90 - MALIGNANT NEOPLASM OF UNSP PART OF UNSP BRONCHUS OR LUNG Status: Acute Current Visit: Yes Qualifiers: Laterality: left Qualified Code(s): C34.92 - Malignant neoplasm of unspecified part of left bronchus or lung (3) Hyponatremia SNOMED Code(s): 56825264 Code(s): E87.1 - HYPO-OSMOLALITY AND HYPONATREMIA Status: Acute Current Visit: Yes (4) HTN (hypertension) SNOMED Code(s): 87935267 Code(s): I10 - ESSENTIAL (PRIMARY) HYPERTENSION Status: Acute Current Visit: Yes - Problem List Review Problem List Initiated/Reviewed/Updated: Yes - My Orders Last 24 Hours: My Active Orders 02/07/19 19:55 Resuscitation Status Routine 02/07/19 20:23 Incentive Spirometry [RT Incentive Spirometry] [RC] ASDIRECTED 02/07/19 20:24 Flutter Valve Therapy [RT Chest Physiotherapy] [RC] ASDIRECTED 02/07/19 20:25 Albuterol [Proventil Neb Soln] 2.5 mg NEB Q2H PRN 02/07/19 20:26 RT Aerosol Therapy [RC] ASDIRECTED 02/07/19 20:27 Consult to Respiratory Therapy [Respiratory Care Assess and Treatment] [CONS] Routine 02/07/19 20:52 Bedrest Bathroom Privileges [RC] ASDIRECTED Height and Weight [RC] 04 Intake and Output [RC] 04,16 Oxygen Therapy [RC] PRN Up With Assistance [RC] ASDIRECTED VTE/DVT Education [RC] BID Vital Signs [RC] Q4HR OT Evaluation and Treatment [CONS] Routine PT Evaluation and Treatment [CONS] Routine Acetaminophen [Tylenol] 650 mg PO Q4H PRN Ondansetron [Zofran ODT] 4 mg PO Q4H PRN 02/07/19 20:53 Sequential Compression Device [OM.PC] Per Unit Routine 02/07/19 20:54 Antiembolic Devices [RC] QSHIFT 02/07/19 21:00 Gabapentin [Neurontin] 300 mg PO BEDTIME Lisinopril [Prinivil] 10 mg PO BEDTIME guaiFENesin [Mucinex] 600 mg PO BID predniSONE 40 mg PO WITHBREAKFAST 02/07/19 21:45 RESPIRATORY PANEL Routine 02/07/19 22:00 Albuterol/Ipratropium [DuoNeb 3.0-0.5 MG/3 ML] 3 ml NEB Q4HRRT 02/08/19 03:00 cefTRIAXone [Rocephin] 1 gm Sodium Chloride 0.9% [Normal Saline] 100 ml IV Q24H 02/08/19 06:00 Levothyroxine 25 mcg PO ACBREAKFAST 02/08/19 06:13 CULTURE SPUTUM + SMEAR [RM] Stat 02/08/19 07:00 Pantoprazole [ProTONIX] 40 mg PO DAILY@0700 02/08/19 09:00 Sertraline [Zoloft] 25 mg PO DAILY Sodium Chloride/KCl [Thermotabs] 1 each PO BID 02/08/19 09:30 Acetaminophen/HYDROcodone [[place] 325-5 MG] 1.5 tab PO Q4H PRN - Plan Plan:: Chronic obstructive pulmonary disease with acute exacerbation * Patient presented with cough with dyspnea and hypoxia. * Patient had some improvement with 2 DuoNeb treatments in the emergency room. * Chest x-ray is critical for left upper lobe infiltrate. * Given Solu-Medrol in the emergency room. * Patient will start Rocephin 1 g IV every 24 hours. * Prednisone 40 mg tonight and 40 mg in the morning. * DuoNeb every 4 hours and albuterol nebulizer every 2 hours when necessary * Respiratory therapy consult, incentive spirometer, flutter valve * WBC increased from 8 to 15.7. Likely 2/2 steroids. Recheck in am. Hypertension * Patient has significantly elevated blood pressure in the emergency room requiring IV hydralazine 10 mg. * Patient believes he was on lisinopril in the past but did not know the dose. * lisinopril 10 mg daily at bedtime made a significant improvement in symptoms. Hypomagnesemia * Mag normal at 1.8 Hyponatremia * Na dropped to 130 * Likely secondary to lung disease * Start NaCl tabs and recheck in the am Chronic medical problems to include: Lung cancer, hypothyroidism, BPH, depression CODE STATUS: Full code Anticipated length of stay 3 days
[2019-02-08] MEDS ORDERED: cefTRIAXone 1 GM Vial IM SCH (20:50)
[2019-02-08] MEDS: Gabapentin 300 MG Cap PO SCH (21:04)
[2019-02-08] MEDS: Lisinopril 10 MG Tab PO SCH (21:04)
[2019-02-08] MEDS: Tamsulosin 0.4 MG Cap.ER PO SCH ×2 (21:05→21:18)
[2019-02-09] MEDS: Acetaminophen/HYDROcodone 325-5 MG Tab PO PRN ×3 (00:18→20:17)
[2019-02-09] MEDS: Albuterol/Ipratropium 3.0-0.5 MG/3 ML Neb Soln NEB SCH ×4 (02:23→21:26)
[2019-02-09] MEDS: cefTRIAXone 1 GM in Sodium Chloride 0.9% 100 ML IV SCH (03:53)
[2019-02-09] MEDS: predniSONE 20 MG Tab PO SCH (06:47)
[2019-02-09] MEDS: Levothyroxine 25 MCG Tab PO SCH (06:47)
[2019-02-09] MEDS: Pantoprazole 40 MG Tab.CR PO SCH (06:47)
[2019-02-09] MEDS ORDERED: Sodium Chloride 0.9% 10 ML Syringe FLUSH PRN (09:02)
[2019-02-09] MEDS ORDERED: Albuterol/Ipratropium 3.0-0.5 MG/3 ML Neb Soln ONE (09:14)
[2019-02-09] MEDS: Potassium Chloride 10 MEQ in Premix Bag 1 BAG IV SCH ×3 (10:17→15:23)
[2019-02-09] MEDS: guaiFENesin 600 MG Tab.ER PO SCH ×2 (10:18→20:17)
[2019-02-09] MEDS: Finasteride 5 MG Tab PO SCH (10:18)
[2019-02-09] MEDS: Sodium Chloride/Potassium Chloride Tab PO SCH (10:18)
[2019-02-09] MEDS: Sertraline 25 MG Tab PO SCH (10:19)
[2019-02-09] MEDS ORDERED: Non-Formulary Medication 1 Each (Gluc 2kcl/Chondr/Coll Hy/Hy Ac [Glucosamine & Chondroitin PO SCH (11:30)
[2019-02-09] MEDS: Potassium Chloride 20 MEQ Tab.ER PO SCH ×3 (12:07→20:17)
--- NOTE | 2019-02-09 13:25 | PCM.PN ---
- General Info Date of Service: 02/09/19 Admission Dx/Problem (Free Text): Admission Diagnosis/Problem Admission Diagnosis/Problem Hypoxia Subjective Update: February 09, 2019 Patient states that he does not feel as good today. He has come off of his oxygen and he is only needing nebulizers every every 6 hours per respiratory therapy. He was placed on oral salt tabs yesterday and his sodium has increased. He is requesting to restart all his home medications. He is fairly insistent. February 08, 2019 Patient does complain of epigastric pain this morning. He states he has had significant pain over the last year related to his cancer diagnosis. He does get [place] 02/21/25 at home and occasionally 7.5. Overall he does better with his breathing. He still having a wet cough. He rested comfortably. Functional Status: Reports: Pain Controlled - Review of Systems General: Reports: No Symptoms. Denies: Fever, Weakness HEENT: Reports: No Symptoms Pulmonary: Reports: Cough, Sputum Cardiovascular: Reports: No Symptoms. Denies: Chest Pain, Palpitations Gastrointestinal: Reports: No Symptoms. Denies: Abdominal Pain - Patient Data Vitals - Most Recent: Last Vital Signs Temp 98.1 F 02/09/19 11:57 Pulse 93 02/09/19 11:57 Resp 20 02/09/19 11:57 BP 143/78 H 02/09/19 11:57 Pulse Ox 95 02/09/19 11:57 Weight - Most Recent: 171 lb I&O - Last 24 Hours: Intake & Output 02/08/19 02/09/19 02/09/19 22:59 06:59 14:59 Intake Total 1571 1250 120 Output Total 370 Balance 1201 1250 120 Lab Results Last 24 Hours: Laboratory Results - last 24 hr 02/09/19 02/09/19 Range/Units 06:22 06:22 WBC 14.47 H (4.23-9.07) K/mm3 RBC 3.87 L (4.63-6.08) M/mm3 Hgb 11.1 L (13.7-17.5) gm/L Hct 33.1 L (40.1-51.0) % MCV 85.5 (79.0-92.2) fl MCH 28.7 (25.7-32.2) pg MCHC 33.5 (32.2-35.5) g/dl RDW Std Deviation 45.7 H (35.1-43.9) fL Plt Count 251 (163-337) K/mm3 MPV 9.7 (9.4-12.3) fl Neut % (Auto) 88.4 H (34.0-67.9) % Lymph % (Auto) 4.7 L (21.8-53.1) % [place] % (Auto) 6.4 (5.3-12.2) % Eos % (Auto) 0 L (0.8-7.0) Baso % (Auto) 0.0 L (0.1-1.2) % Neut # (Auto) 12.79 H (1.78-5.38) K/mm3 Lymph # (Auto) 0.68 L (1.32-3.57) K/mm3 [place] # (Auto) 0.93 H (0.30-0.82) K/mm3 Eos # (Auto) 0.00 L (0.04-0.54) K/mm3 Baso # (Auto) 0.00 L (0.01-0.08) K/mm3 Manual Slide Review Abnormal smear Sodium 135 L (136-145) mEq/L Potassium 3.0 L (3.5-5.1) mEq/L Chloride 100 (98-107) mEq/L Carbon Dioxide 28 (21-32) mEq/L Anion Gap 10.0 (5-15) BUN 19 H (7-18) mg/dL Creatinine 0.9 (0.7-1.3) mg/dL Est Cr Clr Drug Dosing 63.24 mL/min Estimated GFR (MDRD) > 60 (>60) mL/min BUN/Creatinine Ratio 21.1 H (14-18) Glucose 104 (83-115) mg/dL Calcium 8.5 (8.5-10.1) mg/dL Magnesium 2.0 (1.8-2.4) mg/dl Total Bilirubin 0.2 (0.2-1.0) mg/dL AST 20 (15-37) U/L ALT 21 (16-63) U/L Alkaline Phosphatase 61 (46-116) U/L C-Reactive Protein 14.5 H* (<1.0) mg/dL Total Protein 6.7 (6.4-8.2) g/dl Albumin 2.6 L (3.4-5.0) g/dl Globulin 4.1 gm/dL Albumin/Globulin Ratio 0.6 L (1-2) Art Results Last 24 Hours: Microbiology 02/08/19 06:13 Gram Stain - Final Sputum - Expectorated 02/07/19 15:48 Aerobic Blood Culture - Preliminary Blood - Venous - Lab Draw NO GROWTH AFTER 1 DAY Anaerobic Blood Culture - Preliminary NO GROWTH AFTER 1 DAY 02/07/19 15:25 Aerobic Blood Culture - Preliminary Blood - Venous NO GROWTH AFTER 1 DAY Anaerobic Blood Culture - Preliminary NO GROWTH AFTER 1 DAY Med Orders - Current: Current Medications Acetaminophen (Tylenol) 650 mg PO Q4H PRN PRN Reason: Pain (Mild 1-3)/fever Last Admin: 02/08/19 08:59 Dose: 650 mg Hydrocodone Bitart/Acetaminophen ([place] 325-5 Mg) 1.5 tab PO Q4H PRN PRN Reason: Pain Last Admin: 02/09/19 10:23 Dose: 1.5 tab Albuterol (Proventil Neb Soln) 2.5 mg NEB Q2H PRN PRN Reason: Dyspnea Albuterol/Ipratropium (Duoneb 3.0-0.5 Mg/3 Ml) 3 ml NEB Q6HRRT [facility] Finasteride (Proscar) 5 mg PO DAILY [facility] Last Admin: 02/09/19 10:18 Dose: 5 mg Gabapentin (Neurontin) 300 mg PO BEDTIME [facility] Last Admin: 02/08/19 21:04 Dose: 300 mg Guaifenesin (Mucinex) 600 mg PO BID [facility] Last Admin: 02/09/19 10:18 Dose: 600 mg Ceftriaxone Sodium 1 gm/ (Sodium Chloride) 100 mls @ 200 mls/hr IV Q24H [facility] Last Admin: 02/09/19 03:53 Dose: 200 mls/hr Levothyroxine Sodium (Levothyroxine) 25 mcg PO ACBREAKFAST [facility] Last Admin: 02/09/19 06:47 Dose: 25 mcg Lisinopril (Prinivil) 10 mg PO BEDTIME [facility] Last Admin: 02/08/19 21:04 Dose: 10 mg Non-Formulary Medication (Gluc 2kcl/Chondr/Rogerio Hy/Hy Ac [Glucosamine & Chondroitin Cap]) 1 each PO DAILY [facility] Ondansetron HCl (Zofran Odt) 4 mg PO Q4H PRN PRN Reason: nausea, able to take PO Pantoprazole Sodium (Protonix) 40 mg PO DAILY@0700 [facility] Potassium Chloride (Klor-Con M20) 20 meq PO TID [facility] Stop: 02/10/19 09:01 Last Admin: 02/09/19 12:07 Dose: 20 meq Prednisone (Prednisone) 40 mg PO WITHBREAKFAST [facility] Last Admin: 02/09/19 06:47 Dose: 40 mg Sertraline HCl (Zoloft) 25 mg PO DAILY [facility] Last Admin: 02/09/19 10:19 Dose: 25 mg Sodium Chloride (Saline Flush) 10 ml FLUSH ASDIRECTED PRN PRN Reason: Keep Vein Open Discontinued Medications Albuterol/Ipratropium (Duoneb 3.0-0.5 Mg/3 Ml) 3 ml NEB ONETIME ONE Stop: 02/07/19 15:11 Last Admin: 02/07/19 15:41 Dose: 3 ml Albuterol/Ipratropium (Duoneb 3.0-0.5 Mg/3 Ml) 3 ml NEB ONETIME ONE Stop: 02/07/19 15:41 Last Admin: 02/07/19 16:24 Dose: 3 ml Albuterol/Ipratropium (Duoneb 3.0-0.5 Mg/3 Ml) 3 ml NEB Q4HRRT [facility] Last Admin: 02/09/19 06:28 Dose: 3 ml Albuterol/Ipratropium (Duoneb 3.0-0.5 Mg/3 Ml) Confirm Administered Dose 3 ml .ROUTE .STK-MED ONE Stop: 02/09/19 09:15 Last Admin: 02/09/19 10:04 Dose: 3 ml Hydralazine HCl (Apresoline) 10 mg IVPUSH ONETIME ONE Stop: 02/07/19 15:37 Last Admin: 02/07/19 15:55 Dose: 10 mg Sodium Chloride (Normal Saline) 1,000 mls @ 75 mls/hr IV ASDIRECTED [facility] Last Admin: 02/08/19 21:02 Dose: 75 mls/hr Magnesium Sulfate 2 gm/ Premix 50 mls @ 25 mls/hr IV ONETIME ONE Stop: 02/07/19 23:05 Last Admin: 02/07/19 21:47 Dose: 25 mls/hr Potassium Chloride 10 meq/ (Premix) 100 mls @ 100 mls/hr IV Q1H [facility] Stop: 02/09/19 13:14 Last Admin: 02/09/19 10:17 Dose: 100 mls/hr Lorazepam (Ativan) 0.5 mg IVPUSH ONETIME ONE Stop: 02/07/19 16:11 Last Admin: 02/07/19 16:16 Dose: 0.5 mg Methylprednisolone Sodium Succinate (Solu-Medrol) 125 mg IVPUSH ONETIME ONE Stop: 02/07/19 15:27 Last Admin: 02/07/19 15:58 Dose: 125 mg Oral Electrolytes (Thermotabs) 1 each PO BID [facility] Last Admin: 02/09/19 10:18 Dose: 1 each Pantoprazole Sodium (Protonix) 40 mg PO DAILY@0700 [facility] Last Admin: 02/09/19 06:47 Dose: 40 mg Tamsulosin HCl (Flomax) 0.4 mg PO BEDTIME [facility] Last Admin: 02/08/19 21:18 Dose: Not Given - Exam General: Alert, Oriented HEENT: Pupils Equal Neck: Supple Lungs: Normal Respiratory Effort, Wheezing Cardiovascular: Regular Rate, Regular Rhythm Skin: Warm, Dry, Intact Psy/Mental Status: Alert, Normal Affect, Normal Mood - Problem List & Annotations (1) COPD exacerbation SNOMED Code(s): 114432925 Code(s): J44.1 - CHRONIC OBSTRUCTIVE PULMONARY DISEASE W (ACUTE) EXACERBATION Status: Acute Current Visit: Yes (2) Carcinoma of lung SNOMED Code(s): 483729962 Code(s): C34.90 - MALIGNANT NEOPLASM OF UNSP PART OF UNSP BRONCHUS OR LUNG Status: Acute Current Visit: Yes Qualifiers: Laterality: left Qualified Code(s): C34.92 - Malignant neoplasm of unspecified part of left bronchus or lung (3) Hyponatremia SNOMED Code(s): 38028789 Code(s): E87.1 - HYPO-OSMOLALITY AND HYPONATREMIA Status: Acute Current Visit: Yes (4) HTN (hypertension) SNOMED Code(s): 89326498 Code(s): I10 - ESSENTIAL (PRIMARY) HYPERTENSION Status: Acute Current Visit: Yes - Problem List Review Problem List Initiated/Reviewed/Updated: Yes - My Orders Last 24 Hours: My Active Orders 02/08/19 15:20 Activity as Tolerated [RC] .Routine 02/09/19 09:00 Finasteride [Proscar] 5 mg PO DAILY 02/09/19 09:01 RT Aerosol Therapy [RC] ASDIRECTED 02/09/19 09:02 Sodium Chloride 0.9% [Saline Flush] 10 ml FLUSH ASDIRECTED PRN Convert IV to Saline Lock [OM.PC] Routine 02/09/19 11:30 Gluc 2KCl/Chondr/Rogerio Hy/Hy Ac [Glucosamine & Chondroitin Cap] 1 each PO DAILY 02/09/19 12:00 Potassium Chloride [Klor-Con M20] 20 meq PO TID 02/09/19 15:00 Albuterol/Ipratropium [DuoNeb 3.0-0.5 MG/3 ML] 3 ml NEB Q6HRRT 02/10/19 05:11 BASIC METABOLIC PANEL,BMP [CHEM] AM C-REACTIVE PROTEIN [CHEM] AM CBC WITH AUTO DIFF [HEME] AM 02/10/19 07:00 Pantoprazole [ProTONIX] 40 mg PO DAILY@0700 - Plan Plan:: Chronic obstructive pulmonary disease with acute exacerbation * Patient presented with cough with dyspnea and hypoxia. * Patient had some improvement with 2 DuoNeb treatments in the emergency room. * Chest x-ray is critical for left upper lobe infiltrate. * Given Solu-Medrol in the emergency room. * Patient will start Rocephin 1 g IV every 24 hours. * Prednisone 40 mg tonight and 40 mg in the morning. * DuoNeb every 4 hours and albuterol nebulizer every 2 hours when necessary * Respiratory therapy consult, incentive spirometer, flutter valve * WBC increased from 8 to 15.7 and now is down to 14.4 Likely 2/2 steroids. Recheck in am. * C-reactive protein did increase to 14.5. Recheck in the morning Hypertension * Patient has significantly elevated blood pressure in the emergency room requiring IV hydralazine 10 mg. * Patient believes he was on lisinopril in the past but did not know the dose. * lisinopril 10 mg daily at bedtime made a significant improvement in symptoms. Hypomagnesemia * Mag normal at 2.0 Hyponatremia * Na dropped to 130 and now is up to 135 * Likely secondary to lung disease * Stop NaCl tabs and recheck in the am Chronic medical problems to include: Lung cancer, hypothyroidism, BPH, depression CODE STATUS: Full code Anticipated length of stay 3 days
[2019-02-09] MEDS: Gabapentin 300 MG Cap PO SCH (20:17)
[2019-02-09] MEDS: Lisinopril 10 MG Tab PO SCH (20:18)
[2019-02-10] MEDS: cefTRIAXone 1 GM in Sodium Chloride 0.9% 100 ML IV SCH (02:56)
[2019-02-10] MEDS: Albuterol/Ipratropium 3.0-0.5 MG/3 ML Neb Soln NEB SCH ×4 (03:57→20:56)
[2019-02-10] MEDS: predniSONE 20 MG Tab PO SCH (06:36)
[2019-02-10] MEDS: Levothyroxine 25 MCG Tab PO SCH (06:36)
[2019-02-10] MEDS: Pantoprazole 40 MG Tab.CR PO SCH (06:36)
[2019-02-10] MEDS: Acetaminophen/HYDROcodone 325-5 MG Tab PO PRN ×2 (06:42→20:47)
[2019-02-10] MEDS: Gabapentin 300 MG Cap PO SCH ×3 (09:29→20:24)
[2019-02-10] MEDS: guaiFENesin 600 MG Tab.ER PO SCH ×2 (09:29→20:24)
[2019-02-10] MEDS: Sertraline 25 MG Tab PO SCH (09:30)
[2019-02-10] MEDS: Potassium Chloride 20 MEQ Tab.ER PO SCH (09:30)
[2019-02-10] MEDS: Finasteride 5 MG Tab PO SCH (09:30)
[2019-02-10] MEDS ORDERED: Temazepam 7.5 MG Cap PO PRN (13:07)
[2019-02-10] MEDS ORDERED: Terazosin 1 MG Cap PO ONE (16:47)
[2019-02-10] MEDS: Acetaminophen 325 MG Tab PO PRN (17:24)
--- NOTE | 2019-02-10 18:20 | CR ---
Chest: 2 views of the chest were obtained. Comparison: Prior chest x-ray of 02/07/19. Continuing parenchymal density is seen within the left upper chest. Differential as previously noted. Slight scarring is noted within the right upper lung. Lungs otherwise are clear. Heart size is normal. Slightly prominent right paratracheal soft tissues are again noted. Bony structures are grossly intact. Impression: 1. Stable chest x-ray. Diagnostic code #3
--- NOTE | 2019-02-10 18:45 | PCM.PN ---
- General Info Date of Service: 02/10/19 Functional Status: Reports: Tolerating Diet, Urinating - Review of Systems General: Reports: Weakness, Malaise HEENT: Reports: No Symptoms Pulmonary: Reports: Cough, Sputum Cardiovascular: Reports: No Symptoms Gastrointestinal: Reports: No Symptoms Genitourinary: Reports: No Symptoms Musculoskeletal: Reports: No Symptoms Skin: Reports: No Symptoms Neurological: Reports: No Symptoms Psychiatric: Reports: No Symptoms - Patient Data Vitals - Most Recent: Last Vital Signs Temp 37.1 C 02/10/19 16:21 Pulse 85 02/10/19 16:21 Resp 18 02/10/19 16:21 BP 129/76 02/10/19 18:18 Pulse Ox 92 L 02/10/19 16:21 Weight - Most Recent: 77.167 kg I&O - Last 24 Hours: Intake & Output 02/10/19 02/10/19 02/10/19 06:59 14:59 22:59 Intake Total 600 180 400 Balance 600 180 400 Lab Results Last 24 Hours: Laboratory Results - last 24 hr 02/10/19 02/10/19 Range/Units 06:20 06:20 WBC 11.59 H (4.23-9.07) K/mm3 RBC 3.91 L (4.63-6.08) M/mm3 Hgb 11.1 L (13.7-17.5) gm/L Hct 33.4 L (40.1-51.0) % MCV 85.4 (79.0-92.2) fl MCH 28.4 (25.7-32.2) pg MCHC 33.2 (32.2-35.5) g/dl RDW Std Deviation 46.1 H (35.1-43.9) fL Plt Count 289 (163-337) K/mm3 MPV 9.5 (9.4-12.3) fl Neut % (Auto) 87.0 H (34.0-67.9) % Lymph % (Auto) 5.8 L (21.8-53.1) % [place] % (Auto) 6.8 (5.3-12.2) % Eos % (Auto) 0.1 L (0.8-7.0) Baso % (Auto) 0.0 L (0.1-1.2) % Neut # (Auto) 10.09 H (1.78-5.38) K/mm3 Lymph # (Auto) 0.67 L (1.32-3.57) K/mm3 [place] # (Auto) 0.79 (0.30-0.82) K/mm3 Eos # (Auto) 0.01 L (0.04-0.54) K/mm3 Baso # (Auto) 0.00 L (0.01-0.08) K/mm3 Manual Slide Review Abnormal smear Sodium 139 (136-145) mEq/L Potassium 3.2 L (3.5-5.1) mEq/L Chloride 103 (98-107) mEq/L Carbon Dioxide 29 (21-32) mEq/L Anion Gap 10.2 (5-15) BUN 14 (7-18) mg/dL Creatinine 0.8 (0.7-1.3) mg/dL Est Cr Clr Drug Dosing 71.15 mL/min Estimated GFR (MDRD) > 60 (>60) mL/min BUN/Creatinine Ratio 17.5 (14-18) Glucose 115 (83-115) mg/dL Calcium 8.8 (8.5-10.1) mg/dL C-Reactive Protein 6.0 H* (<1.0) mg/dL Art Results Last 24 Hours: Microbiology 02/07/19 15:48 Aerobic Blood Culture - Preliminary Blood - Venous - Lab Draw NO GROWTH AFTER 3 DAYS Anaerobic Blood Culture - Preliminary NO GROWTH AFTER 3 DAYS 02/07/19 15:25 Aerobic Blood Culture - Preliminary Blood - Venous NO GROWTH AFTER 3 DAYS Anaerobic Blood Culture - Preliminary NO GROWTH AFTER 3 DAYS 02/08/19 06:13 Gram Stain - Final Sputum - Expectorated Sputum Culture - Preliminary Staphylococcus Aureus Med Orders - Current: Current Medications Acetaminophen (Tylenol) 650 mg PO Q4H PRN PRN Reason: Pain (Mild 1-3)/fever Last Admin: 02/10/19 17:24 Dose: 650 mg Hydrocodone Bitart/Acetaminophen ([place] 325-5 Mg) 1.5 tab PO Q4H PRN PRN Reason: Pain Last Admin: 02/10/19 06:42 Dose: 1.5 tab Albuterol (Proventil Neb Soln) 2.5 mg NEB Q2H PRN PRN Reason: Dyspnea Last Admin: 02/09/19 19:42 Dose: 2.5 mg Albuterol/Ipratropium (Duoneb 3.0-0.5 Mg/3 Ml) 3 ml NEB Q6HRRT COUNT [facility] Last Admin: 02/10/19 14:08 Dose: 3 ml Finasteride (Proscar) 5 mg PO DAILY COUNT [facility] Last Admin: 02/10/19 09:30 Dose: 5 mg Gabapentin (Neurontin) 300 mg PO TID COUNT [facility] Last Admin: 02/10/19 16:15 Dose: 300 mg Guaifenesin (Mucinex) 600 mg PO BID COUNT [facility] Last Admin: 02/10/19 09:29 Dose: 600 mg Ceftriaxone Sodium 1 gm/ (Sodium Chloride) 100 mls @ 200 mls/hr IV Q24H COUNT [facility] Last Admin: 02/10/19 02:56 Dose: 200 mls/hr Levothyroxine Sodium (Levothyroxine) 25 mcg PO ACBREAKFAST COUNT [facility] Last Admin: 02/10/19 06:36 Dose: 25 mcg Lisinopril (Prinivil) 10 mg PO BEDTIME COUNT [facility] Last Admin: 02/09/19 20:18 Dose: 10 mg Ondansetron HCl (Zofran Odt) 4 mg PO Q4H PRN PRN Reason: nausea, able to take PO Pantoprazole Sodium (Protonix) 40 mg PO DAILY@0700 [facility] Last Admin: 02/10/19 06:36 Dose: 40 mg Prednisone (Prednisone) 40 mg PO WITHBREAKFAST COUNT [facility] Last Admin: 02/10/19 06:36 Dose: 40 mg Sertraline HCl (Zoloft) 25 mg PO DAILY COUNT [facility] Last Admin: 02/10/19 09:30 Dose: 25 mg Sodium Chloride (Saline Flush) 10 ml FLUSH ASDIRECTED PRN PRN Reason: Keep Vein Open Temazepam (Restoril) 7.5 mg PO BEDTIME PRN PRN Reason: Insomnia Discontinued Medications Albuterol/Ipratropium (Duoneb 3.0-0.5 Mg/3 Ml) 3 ml NEB ONETIME ONE Stop: 02/07/19 15:11 Last Admin: 02/07/19 15:41 Dose: 3 ml Albuterol/Ipratropium (Duoneb 3.0-0.5 Mg/3 Ml) 3 ml NEB ONETIME ONE Stop: 02/07/19 15:41 Last Admin: 02/07/19 16:24 Dose: 3 ml Albuterol/Ipratropium (Duoneb 3.0-0.5 Mg/3 Ml) 3 ml NEB Q4HRRT COUNT [facility]CLUD[facility] Last Admin: 02/09/19 06:28 Dose: 3 ml Albuterol/Ipratropium (Duoneb 3.0-0.5 Mg/3 Ml) Confirm Administered Dose 3 ml .ROUTE .STK-MED ONE Stop: 02/09/19 09:15 Last Admin: 02/09/19 10:04 Dose: 3 ml Gabapentin (Neurontin) 300 mg PO BEDTIME COUNT [facility] Last Admin: 02/09/19 20:17 Dose: 300 mg Hydralazine HCl (Apresoline) 10 mg IVPUSH ONETIME ONE Stop: 02/07/19 15:37 Last Admin: 02/07/19 15:55 Dose: 10 mg Sodium Chloride (Normal Saline) 1,000 mls @ 75 mls/hr IV ASDIRECTED COUNT [facility]CLUD[facility] Last Admin: 02/08/19 21:02 Dose: 75 mls/hr Magnesium Sulfate 2 gm/ Premix 50 mls @ 25 mls/hr IV ONETIME ONE Stop: 02/07/19 23:05 Last Admin: 02/07/19 21:47 Dose: 25 mls/hr Potassium Chloride 10 meq/ (Premix) 100 mls @ 100 mls/hr IV Q1H COUNT [facility] Stop: 02/09/19 13:14 Last Admin: 02/09/19 15:23 Dose: Not Given Lorazepam (Ativan) 0.5 mg IVPUSH ONETIME ONE Stop: 02/07/19 16:11 Last Admin: 02/07/19 16:16 Dose: 0.5 mg Methylprednisolone Sodium Succinate (Solu-Medrol) 125 mg IVPUSH ONETIME ONE Stop: 02/07/19 15:27 Last Admin: 02/07/19 15:58 Dose: 125 mg Non-Formulary Medication (Gluc 2kcl/Chondr/Rogerio Hy/Hy Ac [Glucosamine & Chondroitin Cap]) 1 each PO DAILY COUNT [facility]CLUD[facility] Oral Electrolytes (Thermotabs) 1 each PO BID COUNT [facility]CLUD[facility] Last Admin: 02/09/19 10:18 Dose: 1 each Pantoprazole Sodium (Protonix) 40 mg PO DAILY@0700 COUNT [facility] Last Admin: 02/09/19 06:47 Dose: 40 mg Potassium Chloride (Klor-Con M20) 20 meq PO TID COUNT [facility]CLUD[facility] Stop: 02/10/19 09:01 Last Admin: 02/10/19 09:30 Dose: 20 meq Tamsulosin HCl (Flomax) 0.4 mg PO BEDTIME COUNT [facility]CLUD[facility] Last Admin: 02/08/19 21:18 Dose: Not Given Terazosin HCl (Hytrin) 1 mg PO ONETIME ONE Stop: 02/10/19 16:48 Last Admin: 02/10/19 17:16 Dose: 1 mg - Exam Quality Assessment: DVT Prophylaxis General: Alert, Oriented, Cooperative, No Acute Distress HEENT: Pupils Equal, Pupils Reactive, EOMI Neck: Trachea Midline, No JVD Lungs: Normal Respiratory Effort Cardiovascular: Regular Rate GI/Abdominal Exam: Normal Bowel Sounds, Soft, Non-Tender, No Organomegaly, No Distention (Male) Exam: Deferred Back Exam: Normal Inspection Extremities: Normal Inspection, Non-Tender, Normal Capillary Refill Skin: Warm Neurological: No New Focal Deficit Psy/Mental Status: Alert, Normal Affect, Normal Mood - Problem List Review Problem List Initiated/Reviewed/Updated: Yes - My Orders Last 24 Hours: My Active Orders 02/10/19 09:00 Gabapentin [Neurontin] 300 mg PO TID 02/10/19 13:07 Temazepam [Restoril] 7.5 mg PO BEDTIME PRN - Plan Plan:: Chronic obstructive pulmonary disease with acute exacerbationCF PNA --empiric ATBs CT of chest with contrast, 02/11/19. * Patient presented with cough with dyspnea and hypoxia. * Patient had some improvement with 2 DuoNeb treatments in the emergency room. * Chest x-ray is critical for left upper lobe infiltrate. * Given Solu-Medrol in the emergency room. * Patient will start Rocephin 1 g IV every 24 hours. * Prednisone 40 mg tonight and 40 mg in the morning. * DuoNeb every 4 hours and albuterol nebulizer every 2 hours when necessary * Respiratory therapy consult, incentive spirometer, flutter valve * WBC increased from 8 to 15.7 and now is down to 14.4 Likely 2/2 steroids. Recheck in am. * C-reactive protein did increase to 14.5. Recheck in the morning Hypertension--poor response to low dose ACEI; will start alpha ella. * Patient has significantly elevated blood pressure in the emergency room requiring IV hydralazine 10 mg. * Patient believes he was on lisinopril in the past but did not know the dose. * lisinopril 10 mg daily at bedtime made a significant improvement in symptoms. Hypomagnesemia * Mag normal at 2.0 Hyponatremia * Na dropped to 130 and now is up to 135 * Likely secondary to lung disease * Stop NaCl tabs and recheck in the am Chronic medical problems to include: Lung cancer, hypothyroidism, BPH, depression CODE STATUS: Full code LOS>96 hours with slow response to therapy.
[2019-02-10] MEDS ORDERED: Acetaminophen 325 MG Tab PO PRN (18:52)
[2019-02-10] MEDS ORDERED: guaiFENesin/Dextromethorphan 100-10 MG/5 ML Soln 5 ML Cup PO PRN (18:52)
[2019-02-10] MEDS: Terazosin 1 MG Cap PO SCH ×2 (20:23→20:50)
[2019-02-10] MEDS: Azithromycin 500 MG in Sodium Chloride 0.9% 250 ML IV SCH (20:23)
[2019-02-10] MEDS: methylPREDNISolone Sodium Succinate 40 MG/1 ML SDV IVPUSH SCH (20:24)
[2019-02-11] MEDS: Albuterol/Ipratropium 3.0-0.5 MG/3 ML Neb Soln NEB SCH ×4 (02:41→21:29)
[2019-02-11] MEDS: Pantoprazole 40 MG Tab.CR PO SCH (06:01)
[2019-02-11] MEDS: Levothyroxine 25 MCG Tab PO SCH (06:01)
[2019-02-11] MEDS: methylPREDNISolone Sodium Succinate 40 MG/1 ML SDV IVPUSH SCH ×2 (09:00→20:57)
[2019-02-11] MEDS: guaiFENesin 600 MG Tab.ER PO SCH ×2 (09:02→21:06)
[2019-02-11] MEDS: Sertraline 25 MG Tab PO SCH (09:02)
[2019-02-11] MEDS: Terazosin 1 MG Cap PO SCH (09:02)
[2019-02-11] MEDS: Gabapentin 300 MG Cap PO SCH ×3 (09:02→21:02)
[2019-02-11] MEDS: Finasteride 5 MG Tab PO SCH (09:02)
[2019-02-11] MEDS: Acetaminophen/HYDROcodone 325-5 MG Tab PO PRN ×2 (09:41→21:09)
[2019-02-11] MEDS ORDERED: cefTRIAXone 2 GM Vial IVPUSH SCH (10:00)
[2019-02-11] MEDS ORDERED: cefTRIAXone 2 GM in Sodium Chloride 0.9% 100 ML IV SCH (10:00)
[2019-02-11] MEDS ORDERED: Iopamidol 755 Mg/ML 200 ML Bottle IV ONE (10:04)
[2019-02-11] MEDS ORDERED: Sodium Chloride 0.9% 10 ML Syringe FLUSH ONE (10:04)
--- NOTE | 2019-02-11 11:46 | CT ---
CT chest Technique: Multiple axial sections through the chest were obtained. Intravenous contrast was utilized. Comparison: No prior chest CT, previous chest x-ray of 02/10/19. Findings: Small portion of the visualized upper abdominal structures are normal. Heart size is normal. Small mediastinal lymph nodes are seen which are felt to be within normal limits. There is an opacified left upper lung with air bronchograms. This causes the parenchymal density on chest x-ray. Small patchy areas of increased density are seen within the left lung base as well as several areas within the right lung base and within the right upper lung. Impression: 1. Parenchymal density within the left upper lung showing air bronchograms which I believe is most likely due to previous treated lung cancer. Previous chest CT if available would be helpful to confirm. 2. Patchy areas of increased density within the left lower lung, right upper lung and right lower lung most likely due to mild areas of multifocal pneumonia. Diagnostic code #3
[2019-02-11] MEDS ORDERED: hydrALAZINE 20 MG/ML SDV IVPUSH PRN (15:08)
--- NOTE | 2019-02-11 16:09 | PCM.PN ---
- General Info Date of Service: 02/11/19 Admission Dx/Problem (Free Text): Admission Diagnosis/Problem Admission Diagnosis/Problem Hypoxia Subjective Update: No overnight or acute issues. He rested very well last night and feels good this AM. He has no complaints. Functional Status: Reports: Pain Controlled, Tolerating Diet - Review of Systems General: Denies: Fever, Weakness, Fatigue, Malaise, Chills, Night Sweats HEENT: Reports: No Symptoms Pulmonary: Reports: Cough, Sputum. Denies: Shortness of Breath Cardiovascular: Denies: Chest Pain, Palpitations, Dyspnea on Exertion, Orthopnea , Lightheadedness Gastrointestinal: Reports: No Symptoms Genitourinary: Reports: No Symptoms Musculoskeletal: Reports: No Symptoms Skin: Reports: No Symptoms Neurological: Reports: Numbness (fingers and toes (chronic)). Denies: Confusion , Difficulty Walking, Weakness, Gait Disturbance Psychiatric: Denies: Depression, Anxiety, Agitation, Hallucinations - Patient Data Vitals - Most Recent: Last Vital Signs Temp 36.4 C 02/11/19 15:02 Pulse 84 02/11/19 15:02 Resp 20 02/11/19 15:02 BP 173/102 H 02/11/19 16:01 Pulse Ox 94 L 02/11/19 15:52 Weight - Most Recent: 74.956 kg I&O - Last 24 Hours: Intake & Output 02/11/19 02/11/19 02/11/19 06:59 14:59 22:59 Intake Total 550 120 Balance 550 120 Lab Results Last 24 Hours: Laboratory Results - last 24 hr 02/07/19 02/11/19 02/11/19 Range/Units 21:45 06:07 06:07 WBC 6.25 (4.23-9.07) K/mm3 RBC 4.12 L (4.63-6.08) M/mm3 Hgb 11.8 L (13.7-17.5) gm/L Hct 34.7 L (40.1-51.0) % MCV 84.2 (79.0-92.2) fl MCH 28.6 (25.7-32.2) pg MCHC 34.0 (32.2-35.5) g/dl RDW Std Deviation 45.2 H (35.1-43.9) fL Plt Count 332 (163-337) K/mm3 MPV 9.7 (9.4-12.3) fl Neut % (Auto) 91.4 H (34.0-67.9) % Lymph % (Auto) 6.1 L (21.8-53.1) % Linn % (Auto) 2.2 L (5.3-12.2) % Eos % (Auto) 0 L (0.8-7.0) Baso % (Auto) 0.0 L (0.1-1.2) % Neut # (Auto) 5.71 H (1.78-5.38) K/mm3 Lymph # (Auto) 0.38 L (1.32-3.57) K/mm3 Linn # (Auto) 0.14 L (0.30-0.82) K/mm3 Eos # (Auto) 0.00 L (0.04-0.54) K/mm3 Baso # (Auto) 0.00 L (0.01-0.08) K/mm3 Manual Slide Review Abnormal smear Sodium 134 L (136-145) mEq/L Potassium 4.4 (3.5-5.1) mEq/L Chloride 99 (98-107) mEq/L Carbon Dioxide 27 (21-32) mEq/L Anion Gap 12.4 (5-15) BUN 16 (7-18) mg/dL Creatinine 0.8 (0.7-1.3) mg/dL Est Cr Clr Drug Dosing 71.15 mL/min Estimated GFR (MDRD) > 60 (>60) mL/min BUN/Creatinine Ratio 20.0 H (14-18) Glucose 135 H (83-115) mg/dL Lactic Acid (0.4-2.0) mmol/L Calcium 9.2 (8.5-10.1) mg/dL Magnesium 1.8 (1.8-2.4) mg/dl C-Reactive Protein 4.0 H* (<1.0) mg/dL Adenovirus (PCR) Not detected (Not Detected) B. pertussis DNA (PCR) Not detected (Not Detected) B.parapertussis DNA PCR Not detected (Not Detected) C. pneumoniae DNA (PCR) Not detected (Not Detected) Coronavirus (PCR) Not detected (Not Detected) Human Metapneumovir PCR Not detected (Not Detected) Influenza A (RT-PCR) Not detected (Not Detected) Influenza A (H1) PCR Not detected (Not Detected) Influ A (H1N1/09) PCR Not detected (Not Detected) Influenza A (H3) PCR Not detected (Not Detected) Influenza B (RT-PCR) Not detected (Not Detected) Mycoplasma pneumon IgM Negative (NEGATIVE) M. pneumoniae (PCR) Not detected (Not Detected) Parainfluen 1,2,3,4 PCR Detected H (Not Detected) RSV (PCR) Not detected (Not Detected) Entero/Rhino (PCR) Not detected (Not Detected) 02/11/19 Range/Units 06:07 WBC (4.23-9.07) K/mm3 RBC (4.63-6.08) M/mm3 Hgb (13.7-17.5) gm/L Hct (40.1-51.0) % MCV (79.0-92.2) fl MCH (25.7-32.2) pg MCHC (32.2-35.5) g/dl RDW Std Deviation (35.1-43.9) fL Plt Count (163-337) K/mm3 MPV (9.4-12.3) fl Neut % (Auto) (34.0-67.9) % Lymph % (Auto) (21.8-53.1) % Linn % (Auto) (5.3-12.2) % Eos % (Auto) (0.8-7.0) Baso % (Auto) (0.1-1.2) % Neut # (Auto) (1.78-5.38) K/mm3 Lymph # (Auto) (1.32-3.57) K/mm3 Linn # (Auto) (0.30-0.82) K/mm3 Eos # (Auto) (0.04-0.54) K/mm3 Baso # (Auto) (0.01-0.08) K/mm3 Manual Slide Review Sodium (136-145) mEq/L Potassium (3.5-5.1) mEq/L Chloride (98-107) mEq/L Carbon Dioxide (21-32) mEq/L Anion Gap (5-15) BUN (7-18) mg/dL Creatinine (0.7-1.3) mg/dL Est Cr Clr Drug Dosing mL/min Estimated GFR (MDRD) (>60) mL/min BUN/Creatinine Ratio (14-18) Glucose (83-115) mg/dL Lactic Acid 0.9 (0.4-2.0) mmol/L Calcium (8.5-10.1) mg/dL Magnesium (1.8-2.4) mg/dl C-Reactive Protein (<1.0) mg/dL Adenovirus (PCR) (Not Detected) B. pertussis DNA (PCR) (Not Detected) B.parapertussis DNA PCR (Not Detected) C. pneumoniae DNA (PCR) (Not Detected) Coronavirus (PCR) (Not Detected) Human Metapneumovir PCR (Not Detected) Influenza A (RT-PCR) (Not Detected) Influenza A (H1) PCR (Not Detected) Influ A (H1N1/09) PCR (Not Detected) Influenza A (H3) PCR (Not Detected) Influenza B (RT-PCR) (Not Detected) Mycoplasma pneumon IgM (NEGATIVE) M. pneumoniae (PCR) (Not Detected) Parainfluen 1,2,3,4 PCR (Not Detected) RSV (PCR) (Not Detected) Entero/Rhino (PCR) (Not Detected) Art Results Last 24 Hours: Microbiology 02/07/19 15:48 Aerobic Blood Culture - Preliminary Blood - Venous - Lab Draw NO GROWTH AFTER 4 DAYS Anaerobic Blood Culture - Preliminary NO GROWTH AFTER 4 DAYS 02/07/19 15:25 Aerobic Blood Culture - Preliminary Blood - Venous NO GROWTH AFTER 4 DAYS Anaerobic Blood Culture - Preliminary NO GROWTH AFTER 4 DAYS 02/08/19 06:13 Gram Stain - Final Sputum - Expectorated Sputum Culture - Preliminary Staphylococcus Aureus Med Orders - Current: Current Medications Acetaminophen (Tylenol) 650 mg PO Q6H PRN PRN Reason: Pain (Mild 1-3)/fever Hydrocodone Bitart/Acetaminophen ([place] 325-5 Mg) 1.5 tab PO Q4H PRN PRN Reason: Pain Last Admin: 02/11/19 09:41 Dose: 1.5 tab Albuterol (Proventil Neb Soln) 2.5 mg NEB Q2H PRN PRN Reason: Dyspnea Last Admin: 02/09/19 19:42 Dose: 2.5 mg Albuterol/Ipratropium (Duoneb 3.0-0.5 Mg/3 Ml) 3 ml NEB Q6HRRT MANUEL Last Admin: 02/11/19 15:50 Dose: 3 ml Finasteride (Proscar) 5 mg PO DAILY [facility] Last Admin: 02/11/19 09:02 Dose: 5 mg Gabapentin (Neurontin) 300 mg PO TID [facility] Last Admin: 02/11/19 16:01 Dose: 300 mg Guaifenesin (Mucinex) 600 mg PO BID [facility] Last Admin: 02/11/19 09:02 Dose: 600 mg Guaifenesin/Phenylephrine HCl (Robitussin Dm) 10 ml PO Q4H PRN PRN Reason: Cough Hydralazine HCl (Apresoline) 20 mg IVPUSH Q4H PRN PRN Reason: Hypertension Last Admin: 02/11/19 16:01 Dose: 20 mg Azithromycin 500 mg/ Sodium (Chloride) 250 mls @ 250 mls/hr IV Q24H [facility] Last Admin: 02/10/19 20:23 Dose: 250 mls/hr Ceftriaxone Sodium 2 gm/ (Sodium Chloride) 100 mls @ 200 mls/hr IV Q24H [facility] Last Admin: 02/11/19 09:02 Dose: 200 mls/hr Levothyroxine Sodium (Levothyroxine) 25 mcg PO ACBREAKFAST [facility] Last Admin: 02/11/19 06:01 Dose: 25 mcg Methylprednisolone Sodium Succinate (Solu-Medrol) 40 mg IVPUSH Q12H [facility] Last Admin: 02/11/19 09:00 Dose: 40 mg Ondansetron HCl (Zofran Odt) 4 mg PO Q4H PRN PRN Reason: nausea, able to take PO Pantoprazole Sodium (Protonix) 40 mg PO DAILY@0700 [facility] Last Admin: 02/11/19 06:01 Dose: 40 mg Sertraline HCl (Zoloft) 25 mg PO DAILY [facility] Last Admin: 02/11/19 09:02 Dose: 25 mg Sodium Chloride (Saline Flush) 10 ml FLUSH ASDIRECTED PRN PRN Reason: Keep Vein Open Temazepam (Restoril) 7.5 mg PO BEDTIME PRN PRN Reason: Insomnia Last Admin: 02/10/19 20:24 Dose: 7.5 mg Terazosin HCl (Hytrin) 5 mg PO BID [facility] Discontinued Medications Acetaminophen (Tylenol) 650 mg PO Q4H PRN PRN Reason: Pain (Mild 1-3)/fever Last Admin: 02/10/19 17:24 Dose: 650 mg Albuterol/Ipratropium (Duoneb 3.0-0.5 Mg/3 Ml) 3 ml NEB ONETIME ONE Stop: 02/07/19 15:11 Last Admin: 02/07/19 15:41 Dose: 3 ml Albuterol/Ipratropium (Duoneb 3.0-0.5 Mg/3 Ml) 3 ml NEB ONETIME ONE Stop: 02/07/19 15:41 Last Admin: 02/07/19 16:24 Dose: 3 ml Albuterol/Ipratropium (Duoneb 3.0-0.5 Mg/3 Ml) 3 ml NEB Q4HRRT MANUEL Last Admin: 02/09/19 06:28 Dose: 3 ml Albuterol/Ipratropium (Duoneb 3.0-0.5 Mg/3 Ml) Confirm Administered Dose 3 ml .ROUTE .STK-MED ONE Stop: 02/09/19 09:15 Last Admin: 02/09/19 10:04 Dose: 3 ml Ceftriaxone Sodium (Rocephin) 2 gm IVPUSH Q24H [facility] Gabapentin (Neurontin) 300 mg PO BEDTIME [facility] Last Admin: 02/09/19 20:17 Dose: 300 mg Hydralazine HCl (Apresoline) 10 mg IVPUSH ONETIME ONE Stop: 02/07/19 15:37 Last Admin: 02/07/19 15:55 Dose: 10 mg Sodium Chloride (Normal Saline) 1,000 mls @ 75 mls/hr IV ASDIRECTED [facility] Last Admin: 02/08/19 21:02 Dose: 75 mls/hr Magnesium Sulfate 2 gm/ Premix 50 mls @ 25 mls/hr IV ONETIME ONE Stop: 02/07/19 23:05 Last Admin: 02/07/19 21:47 Dose: 25 mls/hr Ceftriaxone Sodium 1 gm/ (Sodium Chloride) 100 mls @ 200 mls/hr IV Q24H [facility] Last Admin: 02/10/19 02:56 Dose: 200 mls/hr Potassium Chloride 10 meq/ (Premix) 100 mls @ 100 mls/hr IV Q1H [facility] Stop: 02/09/19 13:14 Last Admin: 02/09/19 15:23 Dose: Not Given Iopamidol (Isovue-370 (76%)) 80 ml IV ONETIME ONE Stop: 02/11/19 10:05 Last Admin: 02/11/19 10:10 Dose: 80 ml Lisinopril (Prinivil) 10 mg PO BEDTIME [facility] Last Admin: 02/09/19 20:18 Dose: 10 mg Lorazepam (Ativan) 0.5 mg IVPUSH ONETIME ONE Stop: 02/07/19 16:11 Last Admin: 02/07/19 16:16 Dose: 0.5 mg Methylprednisolone Sodium Succinate (Solu-Medrol) 125 mg IVPUSH ONETIME ONE Stop: 02/07/19 15:27 Last Admin: 02/07/19 15:58 Dose: 125 mg Non-Formulary Medication (Gluc 2kcl/Chondr/Rogerio Hy/Hy Ac [Glucosamine & Chondroitin Cap]) 1 each PO DAILY [facility] Last Admin: 02/10/19 19:32 Dose: Not Given Oral Electrolytes (Thermotabs) 1 each PO BID [facility] Last Admin: 02/09/19 10:18 Dose: 1 each Pantoprazole Sodium (Protonix) 40 mg PO DAILY@0700 [facility] Last Admin: 02/09/19 06:47 Dose: 40 mg Potassium Chloride (Klor-Con M20) 20 meq PO TID [facility] Stop: 02/10/19 09:01 Last Admin: 02/10/19 09:30 Dose: 20 meq Prednisone (Prednisone) 40 mg PO WITHBREAKFAST [facility] Last Admin: 02/10/19 06:36 Dose: 40 mg Sodium Chloride (Saline Flush) 10 ml FLUSH ONETIME ONE Stop: 02/11/19 10:05 Last Admin: 02/11/19 10:10 Dose: 10 ml Tamsulosin HCl (Flomax) 0.4 mg PO BEDTIME [facility] Last Admin: 02/08/19 21:18 Dose: Not Given Terazosin HCl (Hytrin) 1 mg PO ONETIME ONE Stop: 02/10/19 16:48 Last Admin: 02/10/19 17:16 Dose: 1 mg Terazosin HCl (Hytrin) 1 mg PO BID [facility] Last Admin: 02/11/19 09:02 Dose: 1 mg - Exam Quality Assessment: No: Supplemental Oxygen General: Alert, Oriented, Cooperative, No Acute Distress HEENT: Pupils Equal, Pupils Reactive, EOMI, Mucous Membr. Moist/Riley Neck: Supple Lungs: Normal Respiratory Effort (Expiratory wheezing on left lower base), Wheezing Cardiovascular: Regular Rate, Regular Rhythm GI/Abdominal Exam: Normal Bowel Sounds, Soft, Non-Tender, No Distention, No Abnormal Bruit, No Mass, Pelvis Stable (Male) Exam: Deferred Back Exam: Normal Inspection, Full Range of Motion Extremities: Normal Inspection, Normal Range of Motion, Non-Tender, No Pedal Edema, Normal Capillary Refill Peripheral Pulses: 2+: Dorsalis Pedis (L), Dorsalis Pedis (R) Skin: Dry, Intact Neurological: No New Focal Deficit, Normal Gait Psy/Mental Status: Alert, Normal Affect, Normal Mood - Problem List Review Problem List Initiated/Reviewed/Updated: Yes - My Orders Last 24 Hours: My Active Orders 02/11/19 15:08 hydrALAZINE [Apresoline] 20 mg IVPUSH Q4H PRN 02/11/19 21:00 Terazosin [Hytrin] 5 mg PO BID - Plan Plan:: Assessment/Plan: Acute: Multifocal Pneumonia * CT scan report reads patchy areas od increased density within the left and right lower lung mostly due to mild areas of multifocal pneumonia * Already on IV Rocephin and Azithromycin, bronchodilators, decongestant and expectorant * Infectious work up reveals: Parainfluenza virus on viral panel and Staph Aureus on sputum culture * IS and FV as directed and Serial CXR as indicated COPD Exacerbation, Continue to Improve * Likely 2/2 Viral Infection * Patient presented with cough with dyspnea and hypoxia. * Patient had some improvement with 2 DuoNeb treatments in the emergency room. * Chest x-ray is critical for left upper lobe infiltrate--> air bronchograms felt to be from previous treated lung cancer (CT scan reads) * Given Solu-Medrol in the emergency room; continue steroids and bronchodilators * Continue IV Rocephin 1 g IV every 24 hours and Azithromycin 500 mg daily * Prednisone 40 mg tonight and 40 mg in the morning. * DuoNeb every 4 hours and albuterol nebulizer every 2 hours when necessary * Respiratory therapy consult, incentive spirometer, flutter valve * WBC is now at normal range 6.25; CRP is down to 4 Hypertension * Still not well controlled; increased dose of Hytrin from 1mg to 5 mg po BID * Patient has significantly elevated blood pressure in the emergency room requiring IV hydralazine 10 mg. * Patient believes he was on lisinopril in the past but did not know the dose. * Lisinopril 10 mg daily at bedtime made a significant improvement in symptoms; discontinued 02/07/2019--> will resume at 20 mg po daily. Hyponatremia * Na dropped to 130; now -->134 * Likely secondary to lung disease * Continue to monitor Resolved: S/p Hypomagnesemia * Mag normal at 2.0 Chronic medical problems to include: Lung cancer, hypothyroidism, BPH, depression Plan: He seems to be improving clinically but his blood pressure remains uncontrolled Routine AM Labs Adjust BP medications RT to assess and treat SW/CM for d/c planning DVT PPx Discharge pending sputum sensitivity and improvement of blood pressure CODE STATUS: Full code LOS>96 hours with slow response to therapy
[2019-02-11] MEDS: Azithromycin 500 MG in Sodium Chloride 0.9% 250 ML IV SCH (21:01)
[2019-02-11] MEDS: Terazosin 5 MG Cap PO SCH (21:03)
[2019-02-11] MEDS ORDERED: amLODIPine 5 MG Tab PO ONE (21:19)
[2019-02-12] MEDS: Albuterol/Ipratropium 3.0-0.5 MG/3 ML Neb Soln NEB SCH ×2 (02:22→10:08)
[2019-02-12] MEDS: Acetaminophen/HYDROcodone 325-5 MG Tab PO PRN (04:08)
[2019-02-12] MEDS: Pantoprazole 40 MG Tab.CR PO SCH (06:40)
[2019-02-12] MEDS: Levothyroxine 25 MCG Tab PO SCH (06:40)
--- NOTE | 2019-02-12 07:30 | PCM.DCSUM1 ---
Discharge Summary - Hospital Course HPI Initial Comments: 78-year-old male with history of lung cancer treated and finished treatment in May 2018. Comes into the emergency room with worsening shortness of breath and cough. Patient has COPD. He states that he often gets short of breath and dyspneic. This is more severe. He states that he has chest pain with deep breaths or with taking his pills. Patient also has hypertension and has not been taking his blood pressure medications. When questioning him it appears that he is on lisinopril of unknown dose. When patient presented to the emergency room his O2 sats were only 86%. He states he has had some chills and fever starting approximately 3 days ago. He is having difficulty lying flat because of shortness of breath. He has no history of heart failure. In the emergency room they did get his oxygenation 91% with complete rest. He is not on home O2. He states his appetite is fair and even trying to regain some of his weight that he lost radiation treatment. He is also not taking his finasteride or Flomax but is voiding normally. He becomes extremely short of breath just walking from the bedroom to the bathroom. Chest x-ray was performed which showed left upper lobe changes consistent with either infection, hemorrhage, or pulmonary mass with radiation change. Patient was given supplemental 125 mg IV and DuoNeb's 2. Patient significantly elevated blood pressure of 205/117 and he was given hydralazine 10 mg IV. Patient was given Ativan 0.5 mg IV to decrease his air hunger and hypertension. Patient was very anxious and kept asking to have his oxygen turned up. Diagnosis: Stroke: No - Discharge Data Discharge Date: 02/12/19 (Admit date: 02/07/19) Discharge Disposition: Home, Self-Care 01 Condition: Good - Patient Summary/Data Consults: Consultations 02/07/19 20:27 Consult to Respiratory Therapy [Respiratory Care Assess and Treatment] [CONS] Routine 02/07/19 20:52 OT Evaluation and Treatment [CONS] Routine PT Evaluation and Treatment [CONS] Routine Labs Pending at D/C: None Recommended Follow-up Testing/Procedures: Follow-up with PCP within one week of discharge Recommend outpatient PFT after symptoms completely resolve. Hospital Course: Assessment/Plan: Acute: Multifocal Pneumonia * CT scan report reads patchy areas od increased density within the left and right lower lung mostly due to mild areas of multifocal pneumonia * Already on IV Rocephin and Azithromycin, bronchodilators, decongestant and expectorant * Infectious work up reveals: Parainfluenza virus on viral panel and Staph Aureus on sputum culture * IS and FV as directed and Serial CXR as indicated COPD Exacerbation, Continue to Improve * Likely 2/2 Viral Infection * Patient presented with cough with dyspnea and hypoxia. * Patient had some improvement with 2 DuoNeb treatments in the emergency room. * Chest x-ray is critical for left upper lobe infiltrate--> air bronchograms felt to be from previous treated lung cancer (CT scan reads) * Given Solu-Medrol in the emergency room; continue steroids and bronchodilators * Continue IV Rocephin 1 g IV every 24 hours and Azithromycin 500 mg daily * Prednisone 40 mg tonight and 40 mg in the morning. * DuoNeb every 4 hours and albuterol nebulizer every 2 hours when necessary * Respiratory therapy consult, incentive spirometer, flutter valve * WBC is now at normal range 6.25; CRP is down to 4 Resolved: S/p Hypomagnesemia * Mag normal at 1.9 S/P Hyponatremia * Na dropped to 130; now -->134-->139 * Likely secondary to lung disease * Continue to monitor S/P Hypertension * Still not well controlled; increased dose of Hytrin from 1mg to 5 mg po BID * Patient has significantly elevated blood pressure in the emergency room requiring IV hydralazine 10 mg. * Patient believes he was on lisinopril in the past but did not know the dose. * Lisinopril 10 mg daily at bedtime made a significant improvement in symptoms; discontinued 02/07/2019--> will resume at 20 mg po daily. Chronic medical problems to include: Lung cancer, hypothyroidism, BPH, depression Plan: He seems to be improving clinically but his blood pressure remains uncontrolled Routine AM Labs Adjust BP medications RT to assess and treat SW/CM for d/c planning DVT PPx Discharge pending sputum sensitivity and improvement of blood pressure CODE STATUS: Full code LOS>96 hours with slow response to therapy Ed was brought in for hypertension and suspected COPD exacerbation. He does report a history of lung cancer and underwent radiation treatment. Initial chest x-ray in the ED showed a left upper lung density and questionable widening of the right mediastinum. He was given steroids and DuoNeb's. She was thought to be due to a viral illness and he did come back positive for parainfluenza. His CRP to continue to climb and the differential was expanded to include a possible pneumonia. He was started on Rocephin and the chest x- ray did remain stable after a few days. He was also given azithromycin. RT was consulted and he did utilize an incentive spirometry and flutter valve. He was utilizing Robitussin-DM as well. Chest CT scan was obtained showing "1. Right bundle density within the left upper lung showing air bronchograms which I believe is most likely due to previously treated lung cancer. Previous chest CT if available would be helpful to confirm. 2. Patchy areas of increased density within the left lower lung, right upper lung, and right lower lung most likely due to mild areas of multifocal pneumonia." Sputum culture returned staph aureus. His blood pressure was not well controlled while here. He reports he had been hypotensive while undergoing treatment for his lung cancer and has since been creeping up. Lisinopril was started ultimately increased up to 20 mg daily. Hytrin was increased from 1-5 mg by mouth twice a day. He did have good response to this regimen. Magnesium was supplemented and he did noted drop in sodium however this rebounded and was 139 on discharge. WBC and CRP did ultimately trend down. He'll be discharged on 5 mg by mouth twice a day Norvasc, 20 mg by mouth daily lisinopril, 5 mg by mouth twice a day Hytrin, and 12 5 mg by mouth twice a day hydrochlorothiazide. He was instructed to check his blood pressure and pulse rate 3 times a day and especially prior to taking these medications. Parameters were set for heart rate and blood pressure. He' ll also be discharged on 10 mL every 4 hours when necessary Robitussin-DM for cough as well as 5 more days of twice a day Bactrim DS for his pneumonia. He was instructed to continue to utilize his Acapella and incentive spirometry for at least one more week or until symptoms resolve. He was weaned off oxygen prior to discharge. We are recommending he obtain a PFT after all symptoms have resolved. He should follow-up with his primary care provider within one week of discharge. - Patient Instructions Diet: Heart Healthy Diet Activity: As Tolerated Driving: May Drive Today Showering/Bathing: May Shower Notify Provider of: Fever, Increased Pain, Swelling and Redness, Nausea and/or Vomiting - Discharge Plan *PRESCRIPTION DRUG MONITORING PROGRAM REVIEWED*: Not Applicable *COPY OF PRESCRIPTION DRUG MONITORING REPORT IN PATIENT CARI: Not Applicable Prescriptions/Med Rec: amLODIPine [Norvasc] 5 mg PO BID #11 tablet Dextromethorphan/guaiFENesin [Robitussin DM] 10 ml PO Q4H PRN #10 cup PRN Reason: Cough hydroCHLOROthiazide [Hydrochlorothiazide] 12.5 mg PO BID #60 cap Lisinopril 20 mg PO DAILY #30 tablet Sulfamethoxazole/Trimethoprim [Bactrim Ds Tablet] 1 each PO BID #10 tablet Terazosin [Hytrin] 5 mg PO BID #30 cap Home Medications: Home Meds Albuterol Sulfate [Albuterol Sulfate Hfa] 1 inh INH Q6H PRN 02/07/19 [History] Finasteride [Proscar] 5 mg PO DAILY 02/07/19 [History] Fish Oil/[place]-3 Fatty Acids [Fish Oil 1,000 MG] 1,000 mg PO DAILY 02/07/19 [ History] Gabapentin [Neurontin] 300 mg PO TID 02/07/19 [History] Hydrocodone/Acetaminophen [Hydrocodon-Acetaminophen 5-325] 1 - 2 tab PO Q4H PRN 02/07/19 [History] Levothyroxine Sodium [Synthroid] 25 mcg PO DAILY 02/07/19 [History] Omeprazole Magnesium [Prilosec Otc] 20 mg PO DAILY 02/07/19 [History] Sertraline [Zoloft] 25 mg PO DAILY 02/07/19 [History] Calcium Carb/Magnesium Hydrox [Rolaids Chewable Tablet] 1 - 2 each PO BID PRN [History] Gluc 2KCl/Chondr/Rogerio Hy/Hy Ac [Glucosamine & Chondroitin Cap] 1 each PO DAILY 02/08/19 [History] Umeclidinium [place] [Incruse Ellipta*] 62.5 mcg IH DAILY 02/08/19 [History] Dextromethorphan/guaiFENesin [Robitussin DM] 10 ml PO Q4H PRN #10 cup 02/12/19 [ Rx] Lisinopril 20 mg PO DAILY #30 tablet 02/12/19 [Rx] Sulfamethoxazole/Trimethoprim [Bactrim Ds Tablet] 1 each PO BID #10 tablet 02/12 [Rx] Terazosin [Hytrin] 5 mg PO BID #30 cap 02/12/19 [Rx] amLODIPine [Norvasc] 5 mg PO BID #11 tablet 02/12/19 [Rx] hydroCHLOROthiazide [Hydrochlorothiazide] 12.5 mg PO BID #60 cap 02/12/19 [Rx] Oxygen Therapy Mode: Room Air Patient Handouts: Chronic Obstructive Pulmonary Disease Exacerbation, Hyponatremia, [id number], Hypomagnesemia, Community-Acquired Pneumonia, Adult Referrals: Greg Canales MD [Primary Care Provider] - 03/04/19 7:50 am - Discharge Summary/Plan Comment DC Time >30 min.: Yes (45 minutes) - General Info Date of Service: 02/12/19 Admission Dx/Problem (Free Text: Admission Diagnosis/Problem Admission Diagnosis/Problem Hypoxia Functional Status: Reports: Pain Controlled, Tolerating Diet, Ambulating, Urinating, Incentive Spirometry, Other (acapella ). Denies: New Symptoms - Review of Systems General: Reports: No Symptoms. Denies: Fever, Weakness, Fatigue, Malaise, Chills HEENT: Reports: No Symptoms. Denies: Headaches, Sore Throat Pulmonary: Reports: Cough (improving ), Sputum (improving ), Wheezing ( improving ). Denies: Shortness of Breath, Pleuritic Chest Pain Cardiovascular: Reports: No Symptoms. Denies: Chest Pain, Palpitations, Dyspnea on Exertion, Edema Gastrointestinal: Reports: No Symptoms. Denies: Abdominal Pain, Constipation, Diarrhea, Nausea, Vomiting Genitourinary: Reports: No Symptoms. Denies: Pain Musculoskeletal: Reports: No Symptoms Skin: Reports: No Symptoms. 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 Denies: Confusion, Trouble Speaking, Difficulty Walking, Weakness , Gait Disturbance Psychiatric: Reports: No Symptoms - Patient Data Vitals - Most Recent: Last Vital Signs Temp 97.5 F 02/12/19 04:03 Pulse 100 02/12/19 04:03 Resp 20 02/12/19 04:03 BP 121/59 L 02/12/19 04:03 Pulse Ox 91 L 02/12/19 04:03 Weight - Most Recent: 166 lb 3.2 oz I&O - Last 24 hours: Intake & Output 02/11/19 02/12/19 02/12/19 22:59 06:59 14:59 Intake Total 550 650 Balance 550 650 Lab Results - Last 24 hrs: Laboratory Results - last 24 hr 02/11/19 02/12/19 02/12/19 Range/Units 06:07 06:17 06:17 WBC 8.14 (4.23-9.07) K/mm3 RBC 4.02 L (4.63-6.08) M/mm3 Hgb 11.4 L (13.7-17.5) gm/L Hct 33.8 L (40.1-51.0) % MCV 84.1 (79.0-92.2) fl MCH 28.4 (25.7-32.2) pg MCHC 33.7 (32.2-35.5) g/dl RDW Std Deviation 45.9 H (35.1-43.9) fL Plt Count 360 H (163-337) K/mm3 MPV 9.2 L (9.4-12.3) fl Neut % (Auto) 87.6 H (34.0-67.9) % Lymph % (Auto) 4.9 L (21.8-53.1) % [place] % (Auto) 6.0 (5.3-12.2) % Eos % (Auto) 0 L (0.8-7.0) Baso % (Auto) 0.1 (0.1-1.2) % Neut # (Auto) 7.13 H (1.78-5.38) K/mm3 Lymph # (Auto) 0.40 L (1.32-3.57) K/mm3 [place] # (Auto) 0.49 (0.30-0.82) K/mm3 Eos # (Auto) 0.00 L (0.04-0.54) K/mm3 Baso # (Auto) 0.01 (0.01-0.08) K/mm3 Manual Slide Review Abnormal smear Sodium 133 L (136-145) mEq/L Potassium 4.2 (3.5-5.1) mEq/L Chloride 98 (98-107) mEq/L Carbon Dioxide 26 (21-32) mEq/L Anion Gap 13.2 (5-15) BUN 25 H (7-18) mg/dL Creatinine 0.9 (0.7-1.3) mg/dL Est Cr Clr Drug Dosing 63.24 mL/min Estimated GFR (MDRD) > 60 (>60) mL/min BUN/Creatinine Ratio 27.8 H (14-18) Glucose 137 H (83-115) mg/dL Lactic Acid (0.4-2.0) mmol/L Calcium 9.0 (8.5-10.1) mg/dL Magnesium 1.9 (1.8-2.4) mg/dl C-Reactive Protein 1.8 H* (<1.0) mg/dL Mycoplasma pneumon IgM Negative (NEGATIVE) 02/12/19 Range/Units 06:17 WBC (4.23-9.07) K/mm3 RBC (4.63-6.08) M/mm3 Hgb (13.7-17.5) gm/L Hct (40.1-51.0) % MCV (79.0-92.2) fl MCH (25.7-32.2) pg MCHC (32.2-35.5) g/dl RDW Std Deviation (35.1-43.9) fL Plt Count (163-337) K/mm3 MPV (9.4-12.3) fl Neut % (Auto) (34.0-67.9) % Lymph % (Auto) (21.8-53.1) % [place] % (Auto) (5.3-12.2) % Eos % (Auto) (0.8-7.0) Baso % (Auto) (0.1-1.2) % Neut # (Auto) (1.78-5.38) K/mm3 Lymph # (Auto) (1.32-3.57) K/mm3 [place] # (Auto) (0.30-0.82) K/mm3 Eos # (Auto) (0.04-0.54) K/mm3 Baso # (Auto) (0.01-0.08) K/mm3 Manual Slide Review Sodium (136-145) mEq/L Potassium (3.5-5.1) mEq/L Chloride (98-107) mEq/L Carbon Dioxide (21-32) mEq/L Anion Gap (5-15) BUN (7-18) mg/dL Creatinine (0.7-1.3) mg/dL Est Cr Clr Drug Dosing mL/min Estimated GFR (MDRD) (>60) mL/min BUN/Creatinine Ratio (14-18) Glucose (83-115) mg/dL Lactic Acid 1.0 (0.4-2.0) mmol/L Calcium (8.5-10.1) mg/dL Magnesium (1.8-2.4) mg/dl C-Reactive Protein (<1.0) mg/dL Mycoplasma pneumon IgM (NEGATIVE) JA Results - Last 24 hrs: Microbiology 02/08/19 06:13 Gram Stain - Final Sputum - Expectorated Sputum Culture - Preliminary Staphylococcus Aureus 02/07/19 15:48 Aerobic Blood Culture - Preliminary Blood - Venous - Lab Draw NO GROWTH AFTER 4 DAYS Anaerobic Blood Culture - Preliminary NO GROWTH AFTER 4 DAYS 02/07/19 15:25 Aerobic Blood Culture - Preliminary Blood - Venous NO GROWTH AFTER 4 DAYS Anaerobic Blood Culture - Preliminary NO GROWTH AFTER 4 DAYS Med Orders - Current: Current Medications Acetaminophen (Tylenol) 650 mg PO Q6H PRN PRN Reason: Pain (Mild 1-3)/fever Hydrocodone Bitart/Acetaminophen ([place] 325-5 Mg) 1.5 tab PO Q4H PRN PRN Reason: Pain Last Admin: 02/12/19 04:08 Dose: 1.5 tab Albuterol (Proventil Neb Soln) 2.5 mg NEB Q2H PRN PRN Reason: Dyspnea Last Admin: 02/09/19 19:42 Dose: 2.5 mg Albuterol/Ipratropium (Duoneb 3.0-0.5 Mg/3 Ml) 3 ml NEB Q6HRRT [facility] Last Admin: 02/12/19 02:22 Dose: 3 ml Amlodipine Besylate (Norvasc) 5 mg PO BID [facility] Finasteride (Proscar) 5 mg PO DAILY [facility] Last Admin: 02/11/19 09:02 Dose: 5 mg Gabapentin (Neurontin) 300 mg PO TID [facility] Last Admin: 02/11/19 21:02 Dose: 300 mg Guaifenesin (Mucinex) 600 mg PO BID [facility] Last Admin: 02/11/19 21:06 Dose: 600 mg Guaifenesin/Phenylephrine HCl (Robitussin Dm) 10 ml PO Q4H PRN PRN Reason: Cough Hydralazine HCl (Apresoline) 20 mg IVPUSH Q4H PRN PRN Reason: Hypertension Last Admin: 02/11/19 16:01 Dose: 20 mg Azithromycin 500 mg/ Sodium (Chloride) 250 mls @ 250 mls/hr IV Q24H [facility] Last Admin: 02/11/19 21:01 Dose: 250 mls/hr Ceftriaxone Sodium 2 gm/ (Sodium Chloride) 100 mls @ 200 mls/hr IV Q24H [facility] Last Admin: 02/11/19 09:02 Dose: 200 mls/hr Levothyroxine Sodium (Levothyroxine) 25 mcg PO ACBREAKFAST [facility] Last Admin: 02/12/19 06:40 Dose: 25 mcg Lisinopril (Prinivil) 20 mg PO DAILY [facility] Methylprednisolone Sodium Succinate (Solu-Medrol) 40 mg IVPUSH Q12H [facility] Last Admin: 02/11/19 20:57 Dose: 40 mg Ondansetron HCl (Zofran Odt) 4 mg PO Q4H PRN PRN Reason: nausea, able to take PO Pantoprazole Sodium (Protonix) 40 mg PO DAILY@0700 [facility] Last Admin: 02/12/19 06:40 Dose: 40 mg Sertraline HCl (Zoloft) 25 mg PO DAILY [facility] Last Admin: 02/11/19 09:02 Dose: 25 mg Sodium Chloride (Saline Flush) 10 ml FLUSH ASDIRECTED PRN PRN Reason: Keep Vein Open Temazepam (Restoril) 7.5 mg PO BEDTIME PRN PRN Reason: Insomnia Last Admin: 02/10/19 20:24 Dose: 7.5 mg Terazosin HCl (Hytrin) 5 mg PO BID [facility] Last Admin: 02/11/19 21:03 Dose: 5 mg Tiotropium [place] (Spiriva Handihaler) 18 mcg INH DAILY [facility] Discontinued Medications Acetaminophen (Tylenol) 650 mg PO Q4H PRN PRN Reason: Pain (Mild 1-3)/fever Last Admin: 02/10/19 17:24 Dose: 650 mg Albuterol/Ipratropium (Duoneb 3.0-0.5 Mg/3 Ml) 3 ml NEB ONETIME ONE Stop: 02/07/19 15:11 Last Admin: 02/07/19 15:41 Dose: 3 ml Albuterol/Ipratropium (Duoneb 3.0-0.5 Mg/3 Ml) 3 ml NEB ONETIME ONE Stop: 02/07/19 15:41 Last Admin: 02/07/19 16:24 Dose: 3 ml Albuterol/Ipratropium (Duoneb 3.0-0.5 Mg/3 Ml) 3 ml NEB Q4HRRT [facility] Last Admin: 02/09/19 06:28 Dose: 3 ml Albuterol/Ipratropium (Duoneb 3.0-0.5 Mg/3 Ml) Confirm Administered Dose 3 ml .ROUTE .STK-MED ONE Stop: 02/09/19 09:15 Last Admin: 02/09/19 10:04 Dose: 3 ml Amlodipine Besylate (Norvasc) 5 mg PO ONETIME ONE Stop: 02/11/19 21:20 Last Admin: 02/11/19 22:26 Dose: 5 mg Ceftriaxone Sodium (Rocephin) 2 gm IVPUSH Q24H MANUEL Gabapentin (Neurontin) 300 mg PO BEDTIME [facility] Last Admin: 02/09/19 20:17 Dose: 300 mg Hydralazine HCl (Apresoline) 10 mg IVPUSH ONETIME ONE Stop: 02/07/19 15:37 Last Admin: 02/07/19 15:55 Dose: 10 mg Sodium Chloride (Normal Saline) 1,000 mls @ 75 mls/hr IV ASDIRECTED [facility] Last Admin: 02/08/19 21:02 Dose: 75 mls/hr Magnesium Sulfate 2 gm/ Premix 50 mls @ 25 mls/hr IV ONETIME ONE Stop: 02/07/19 23:05 Last Admin: 02/07/19 21:47 Dose: 25 mls/hr Ceftriaxone Sodium 1 gm/ (Sodium Chloride) 100 mls @ 200 mls/hr IV Q24H [facility] Last Admin: 02/10/19 02:56 Dose: 200 mls/hr Potassium Chloride 10 meq/ (Premix) 100 mls @ 100 mls/hr IV Q1H [facility] Stop: 02/09/19 13:14 Last Admin: 02/09/19 15:23 Dose: Not Given Iopamidol (Isovue-370 (76%)) 80 ml IV ONETIME ONE Stop: 02/11/19 10:05 Last Admin: 02/11/19 10:10 Dose: 80 ml Lisinopril (Prinivil) 10 mg PO BEDTIME [facility] Last Admin: 02/09/19 20:18 Dose: 10 mg Lorazepam (Ativan) 0.5 mg IVPUSH ONETIME ONE Stop: 02/07/19 16:11 Last Admin: 02/07/19 16:16 Dose: 0.5 mg Methylprednisolone Sodium Succinate (Solu-Medrol) 125 mg IVPUSH ONETIME ONE Stop: 02/07/19 15:27 Last Admin: 02/07/19 15:58 Dose: 125 mg Non-Formulary Medication (Gluc 2kcl/Chondr/Rogerio Hy/Hy Ac [Glucosamine & Chondroitin Cap]) 1 each PO DAILY [facility] Last Admin: 02/10/19 19:32 Dose: Not Given Oral Electrolytes (Thermotabs) 1 each PO BID [facility] Last Admin: 02/09/19 10:18 Dose: 1 each Pantoprazole Sodium (Protonix) 40 mg PO DAILY@0700 [facility] Last Admin: 02/09/19 06:47 Dose: 40 mg Potassium Chloride (Klor-Con M20) 20 meq PO TID [facility] Stop: 02/10/19 09:01 Last Admin: 02/10/19 09:30 Dose: 20 meq Prednisone (Prednisone) 40 mg PO WITHBREAKFAST [facility] Last Admin: 02/10/19 06:36 Dose: 40 mg Sodium Chloride (Saline Flush) 10 ml FLUSH ONETIME ONE Stop: 02/11/19 10:05 Last Admin: 02/11/19 10:10 Dose: 10 ml Tamsulosin HCl (Flomax) 0.4 mg PO BEDTIME [facility] Last Admin: 02/08/19 21:18 Dose: Not Given Terazosin HCl (Hytrin) 1 mg PO ONETIME ONE Stop: 02/10/19 16:48 Last Admin: 02/10/19 17:16 Dose: 1 mg Terazosin HCl (Hytrin) 1 mg PO BID [facility] Last Admin: 02/11/19 09:02 Dose: 1 mg - Exam Quality Assessment: Reports: DVT Prophylaxis. Denies: Supplemental Oxygen General: Reports: Alert, Oriented, Cooperative, No Acute Distress HEENT: Reports: Pupils Equal, Pupils Reactive, EOMI, Mucous Membr. Moist/[place] Neck: Reports: Supple, Trachea Midline Lungs: Reports: Normal Respiratory Effort, Decreased Breath Sounds Cardiovascular: Reports: Regular Rate, Regular Rhythm GI/Abdominal Exam: Normal Bowel Sounds, Soft, Non-Tender, No Distention, No Abnormal Bruit (Male) Exam: Deferred Rectal (Males) Exam: Deferred Back Exam: Reports: Normal Inspection, Full Range of Motion Extremities: Normal Inspection, Normal Range of Motion, Non-Tender, No Pedal Edema, Normal Capillary Refill Skin: Reports: Warm, Dry, Intact Neurological: Reports: No New Focal Deficit Psy/Mental Status: Reports: Alert, Normal Affect, Normal Mood
[2019-02-12] MEDS: methylPREDNISolone Sodium Succinate 40 MG/1 ML SDV IVPUSH SCH (08:35)
[2019-02-12] MEDS: Finasteride 5 MG Tab PO SCH (08:35)
[2019-02-12] MEDS: guaiFENesin 600 MG Tab.ER PO SCH (08:36)
[2019-02-12] MEDS: Sertraline 25 MG Tab PO SCH (08:36)
[2019-02-12] MEDS: Gabapentin 300 MG Cap PO SCH (08:36)
[2019-02-12] MEDS: Terazosin 5 MG Cap PO SCH (08:36)
[2019-02-12] MEDS ORDERED: Azithromycin 500 MG in Sodium Chloride 0.9% 250 ML IV SCH (08:47)
[2019-02-12] MEDS ORDERED: Glycopyrrolate 15.6 MCG Cap.W.Dev Kit of 6 IH SCH (09:00)
[2019-02-12] MEDS ORDERED: amLODIPine 5 MG Tab PO SCH (09:00)
[2019-02-12] MEDS ORDERED: Lisinopril 20 MG Tab PO SCH (09:00)
[2019-02-12] MEDS ORDERED: Azithromycin 250 MG Tab PO SCH (10:00)
[2019-02-12] MEDS ORDERED: cefTRIAXone 2 GM in Sodium Chloride 0.9% 100 ML IV SCH (10:00)
== END 2019-02-12 13:45 | disposition home or self-care (01) | DRG 190 ==
LOC: JD.ED 14:26 → JD.MS 18:41
PROVIDERS: ADMIT Family Medicine; ATTEND Family Medicine
DX: J44.1 Chronic obstructive pulmonary disease with (acute) exacerbation (principal); J18.9 Pneumonia, unspecified organism; C34.12 Malignant neoplasm of upper lobe, left bronchus or lung; E87.1 Hypo-osmolality and hyponatremia; J44.0 Chronic obstructive pulmonary disease with (acute) lower respiratory infection; I10 Essential (primary) hypertension; K21.9 Gastro-esophageal reflux disease without esophagitis; E03.9 Hypothyroidism, unspecified; N40.0 Benign prostatic hyperplasia without lower urinary tract symptoms; G62.0 Drug-induced polyneuropathy; T45.1X5S Adverse effect of antineoplastic and immunosuppressive drugs, sequela; R09.02 Hypoxemia; F41.9 Anxiety disorder, unspecified; R06.2 Wheezing; R07.9 Chest pain, unspecified; R42 Dizziness and giddiness; K59.00 Constipation, unspecified; R06.03 Acute respiratory distress; R06.82 Tachypnea, not elsewhere classified; R00.0 Tachycardia, unspecified; R06.01 Orthopnea; R06.02 Shortness of breath; R05 Cough; R50.9 Fever, unspecified; R53.81 Other malaise; R53.1 Weakness; H54.7 Unspecified visual loss; H91.90 Unspecified hearing loss, unspecified ear; F32.9 Major depressive disorder, single episode, unspecified; E83.42 Hypomagnesemia; Z79.890 Hormone replacement therapy; Z92.21 Personal history of antineoplastic chemotherapy; Z87.01 Personal history of pneumonia (recurrent); Z92.3 Personal history of irradiation; Z79.899 Other long term (current) drug therapy; Z87.891 Personal history of nicotine dependence
CPT/HCPCS: 36415; 71045; 80053; 81001; 82553; 83735; 83880; 84484; 85007; 85027; 85652; 86140; 87040 ×2; 93005; 94640 ×2; 96361; 96374; 96375; 99285; J0360; J2060; J2930; J7040; 71046; 71046-26; 71260; 71260-26; 80048; 83605; 85025; 86738; 87070; 87077; 87186; 87205; 87486; 87581; 87632; 87798; 93010; 94667; 94668; 94760; 94761; 97110-GP; 97116-GP; 97161-GP; 97165-GO; A9270-GY; J0456; J0696; J2920; J3475; J3480; J7030; J7050; J7620-GY; Q9967

== ENCOUNTER 2020-05-07 16:13 | Inpatient (IN) | payer MEDICARE, OTHER ==
[2020-05-07] MEDS ORDERED: Sodium Chloride 0.9% 1,000 ML IV ONE (16:52)
--- NOTE | 2020-05-07 17:15 | EDM.PDOC ---
ED HPI GENERAL MEDICAL PROBLEM - General Chief Complaint: General Stated Complaint: [facility] Time Seen by Provider: 05/07/20 16:20 Source of Information: Reports: Patient, Family (daughter in law), RN Notes Reviewed - History of Present Illness INITIAL COMMENTS - FREE TEXT/NARRATIVE: 79 year old male has been brought in by [facility] with cough, fever, chills that seems to have started several days ago but becoming more severe last evening and today. Hx is primarily from daughter in law present in ED at time of patient arrival by EMS. He has been coughing frequently, mostly nonproductive. He is short of breath, very weak, dizzy. EMS states they found him "sitting on the toilet" too weak to stand or get back to a chair or bed by himself. He does have hx of COPD, lung cancer that was treated with radiation and chemo about 2 yrs ago and more recently immunotherapy that was stopped about a month ago due to undesirable side effects and patient choice. He denies chest pain. Does not use oxygen. No abd pain, vomiting or diarrhea. Has been fairly isolated with regard to covid exposure although he has had daily contact with various family members. Chest Pain Score (Numeric/FACES): 2 Bladder Pain Score (Numeric/FACES): 4 - Related Data Allergies Allergy/AdvReac Type Severity Reaction Status Date / Time levofloxacin Allergy Cannot Verified 05/07/20 21:00 Remember tamsulosin [From Flomax] AdvReac Intermediate Breast Verified 05/07/20 21:00 Tenderness Home Meds: Home Meds Albuterol Sulfate [Albuterol Sulfate Hfa] 1 inh INH Q6H PRN 02/07/19 [History] Finasteride [Proscar] 5 mg PO DAILY 02/07/19 [History] Fish Oil/[place]-3 Fatty Acids [Fish Oil 1,000 MG] 1,000 mg PO DAILY 02/07/19 [History] Gabapentin [Neurontin] 300 mg PO TID 02/07/19 [History] Hydrocodone/Acetaminophen [Hydrocodone-Acetamin 5-325 mg] 1 - 2 tab PO Q6H PRN 02/07/19 [History] Omeprazole Magnesium [Prilosec Otc] 20 mg PO BID 02/07/19 [History] Sertraline [Zoloft] 25 mg PO DAILY 02/07/19 [History] Umeclidinium [place] [Incruse Ellipta*] 62.5 mcg IH DAILY 02/08/19 [History] Cartilage/Collagen/Bor/Hyalur [Joint Health Tablet] 1 tab PO DAILY 05/07/20 [History] Cod Liver Oil 5 ml PO DAILY 05/07/20 [History] Fluticasone/Vilanterol [Breo Ellipta 100-25 MCG Inhalation Kit] 1 cap INH DAILY 05/07/20 [History] Gabapentin [Neurontin] 600 mg PO BEDTIME 05/07/20 [History] Lidocaine 4% [LMX 4] 1 gm TOP TID PRN 05/07/20 [History] Lisinopril/Hydrochlorothiazide [Lisinopril-HCTZ 10-12.5 MG] 1 tab PO DAILY 05/07/20 [History] Past Medical History HEENT History: Reports: Hard of Hearing, Impaired Vision Cardiovascular History: Reports: Hypertension Respiratory History: Reports: Pneumonia, Recurrent, Other (See Below) Other Respiratory History: lung cancer Gastrointestinal History: Reports: GERD Other Gastrointestinal History: EGD in [id number] Genitourinary History: Reports: BPH Musculoskeletal History: Reports: None 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, Peripheral Psychiatric History: Reports: None, Depression Endocrine/Metabolic History: Reports: Hypothyroidism Oncologic (Cancer) History: Reports: Lung Other Oncologic History: Lung cancer 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 Other Dermatologic History: skin cancer on face and head- Dr Sexton in [place] - Infectious Disease History Infectious Disease History: Reports: None - Past Surgical History HEENT Surgical History: Reports: None Cardiovascular Surgical History: Reports: None Respiratory Surgical History: Reports: Lung Biopsies Other Respiratory Surgeries/Procedures: Bipopsy March 08 GI Surgical History: Reports: None Male Surgical History: Reports: None Endocrine Surgical History: Reports: None Neurological Surgical History: Reports: None Musculoskeletal Surgical History: Reports: None Oncologic Surgical History: Reports: None Social & Family History - Family History Family Medical History: Noncontributory - Tobacco Use Smoking Status *Q: Former Smoker Used Tobacco, but Quit: Yes Month/Year Tobacco Last Used: 2007 - Caffeine Use Caffeine Use: Reports: Soda - Recreational Drug Use Recreational Drug Use: No - Living Situation & Occupation Living situation: Reports: Single Occupation: Retired ED ROS GENERAL - Review of Systems Review Of Systems: See Below Constitutional: Reports: Fever, Chills, Diaphoresis (Reported to be very hot at his home, it is about 95 outside with high humidity) HEENT: Denies: Rhinitis, Throat Pain Respiratory: Reports: Shortness of Breath, Wheezing, Cough, Sputum (scant) GI/Abdominal: Reports: Decreased Appetite. Denies: Abdominal Pain, Diarrhea, Vomiting Musculoskeletal: Reports: Back Pain. Denies: Shoulder Pain Skin: Denies: Rash Neurological: Reports: Difficulty Walking, Weakness. Denies: Trouble Speaking ED EXAM, GENERAL - Physical Exam Exam: See Below General Appearance: Alert, Other (not very talkative, he does answer simple ) Nose: Normal Inspection Throat/Mouth: Normal Inspection Head: Atraumatic. No: Facial Swelling Neck: Supple, Other (no JVD) Respiratory/Chest: Respiratory Distress (moderate tachypnea) Cardiovascular: Tachycardia GI/Abdominal: Soft, Non-Tender. No: Guarding Back Exam: No: CVA Tenderness (L), CVA Tenderness (R) Extremities: No: Pedal Edema, Leg Pain, Increased Warmth, Redness Neurological: Alert, No Motor/Sensory Deficits Skin Exam: Warm, Dry, No Rash Course - Vital Signs Last Recorded V/S: Last Vital Signs Temp 98.6 F 05/09/20 20:00 Pulse 116 H 05/08/20 08:00 Resp 18 05/09/20 20:00 BP 135/81 05/09/20 20:00 Pulse Ox 98 05/09/20 20:00 - Orders/Labs/Meds Orders: Medication Orders Hydrocodone Bitart/Acetaminophen ([place] 325-5 Mg) 1 - 2 tab PO Q6H PRN PRN Reason: Pain Last Admin: 05/09/20 20:06 Dose: 2 tab Documented by: MJ Albuterol (Proventil Neb Soln) 2.5 mg NEB Q2H PRN PRN Reason: Shortness Of Breath/wheezing Albuterol/Ipratropium (Duoneb 3.0-0.5 Mg/3 Ml) 3 ml NEB Q4H PRN PRN Reason: Shortness Of Breath/wheezing Budesonide (Pulmicort) 0.5 mg NEB BID MANUEL Last Admin: 05/09/20 08:05 Dose: 0.5 mg Documented by: Admin: 05/08/20 20:11 Dose: 0.5 mg Documented by: Admin: 05/08/20 09:16 Dose: 0.5 mg Documented by: KEVIN Enoxaparin Sodium (Lovenox) 40 mg SUBCUT DAILY [facility] Last Admin: 05/09/20 08:16 Dose: 40 mg Documented by: Admin: 05/08/20 08:29 Dose: 40 mg Documented by: JACIEL Famotidine (Pepcid) 20 mg PO BID [facility] Last Admin: 05/09/20 20:05 Dose: 20 mg Documented by: Admin: 05/09/20 08:18 Dose: 20 mg Documented by: Admin: 05/08/20 19:59 Dose: 20 mg Documented by: Admin: 05/08/20 13:31 Dose: 20 mg Documented by: JACIEL Finasteride (Proscar) 5 mg PO DAILY [facility] Last Admin: 05/09/20 08:18 Dose: 5 mg Documented by: Admin: 05/08/20 08:33 Dose: 5 mg Documented by: JACIEL Gabapentin (Neurontin) 300 mg PO BID@0900,1200 [facility] Last Admin: 05/09/20 11:00 Dose: 300 mg Documented by: Admin: 05/09/20 08:17 Dose: 300 mg Documented by: Admin: 05/08/20 12:35 Dose: 300 mg Documented by: Admin: 05/08/20 08:29 Dose: 300 mg Documented by: Admin: 05/07/20 22:06 Dose: Not Given Documented by: Admin: 05/07/20 22:06 Dose: Not Given Documented by: MJ Gabapentin (Neurontin) 600 mg PO BEDTIME [facility] Last Admin: 05/09/20 20:05 Dose: 600 mg Documented by: Admin: 05/08/20 19:59 Dose: 600 mg Documented by: Admin: 05/07/20 22:27 Dose: 600 mg Documented by: MJ Glycopyrrolate (Seebri Neohaler) 15.6 mcg IH BID [facility] Last Admin: 05/09/20 08:09 Dose: 1 cap Documented by: KEVIN Guaifenesin/Phenylephrine HCl (Robitussin Dm) 10 ml PO Q4H PRN PRN Reason: Cough Last Admin: 05/09/20 20:08 Dose: 10 ml Documented by: Admin: 05/08/20 19:50 Dose: 10 ml Documented by: Admin: 05/08/20 11:40 Dose: 10 ml Documented by: JACIEL Hydralazine HCl (Apresoline) 20 mg IVPUSH Q4H PRN PRN Reason: Hypertension Cefepime HCl 2 gm/ Premix 50 mls @ 100 mls/hr IV Q8H [facility] Last Admin: 05/09/20 16:21 Dose: 100 mls/hr Documented by: Infusion: 05/09/20 08:47 Dose: 100 mls/hr Documented by: Admin: 05/09/20 08:17 Dose: 100 mls/hr Documented by: Infusion: 05/09/20 01:40 Dose: 100 mls/hr Documented by: Admin: 05/09/20 01:10 Dose: 100 mls/hr Documented by: Infusion: 05/08/20 17:00 Dose: 100 mls/hr Documented by: Admin: 05/08/20 16:30 Dose: 100 mls/hr Documented by: Infusion: 05/08/20 09:00 Dose: 100 mls/hr Documented by: Admin: 05/08/20 08:30 Dose: 100 mls/hr Documented by: Infusion: 05/08/20 02:54 Dose: 100 mls/hr Documented by: Admin: 05/08/20 02:24 Dose: 100 mls/hr Documented by: Infusion: 05/07/20 18:06 Dose: 100 mls/hr Documented by: Admin: 05/07/20 17:36 Dose: 100 mls/hr Documented by: MARY Sodium Chloride (Normal Saline) 1,000 mls @ 125 mls/hr IV ASDIRECTED [facility] Last Admin: 05/09/20 18:01 Dose: 125 mls/hr Documented by: Infusion: 05/09/20 18:01 Dose: 125 mls/hr Documented by: Admin: 05/09/20 10:39 Dose: 125 mls/hr Documented by: Infusion: 05/09/20 09:51 Dose: 125 mls/hr Documented by: Admin: 05/09/20 01:51 Dose: 125 mls/hr Documented by: Infusion: 05/09/20 01:51 Dose: 125 mls/hr Documented by: Admin: 05/08/20 18:05 Dose: 125 mls/hr Documented by: Infusion: 05/08/20 15:51 Dose: 125 mls/hr Documented by: Admin: 05/08/20 07:51 Dose: 125 mls/hr Documented by: Infusion: 05/08/20 07:07 Dose: 125 mls/hr Documented by: Admin: 05/07/20 23:07 Dose: 125 mls/hr Documented by: MJ Lisinopril (Prinivil) 10 mg PO DAILY [facility] Last Admin: 05/08/20 08:32 Dose: 10 mg Documented by: JACIEL Mometasone Furoate/Formoterol Fumar (Dulera 100-5 Mcg) 2 puff IH BID [facility] Last Admin: 05/09/20 08:09 Dose: 2 puff Documented by: KEVIN Ondansetron HCl (Zofran) 4 mg IV Q4H PRN PRN Reason: Nausea/Vomiting Sertraline HCl (Zoloft) 25 mg PO DAILY [facility] Last Admin: 05/09/20 08:17 Dose: 25 mg Documented by: Admin: 05/08/20 08:29 Dose: 25 mg Documented by: JACIEL Sodium Chloride (Saline Flush) 10 ml FLUSH ASDIRECTED PRN PRN Reason: Keep Vein Open Last Admin: 05/07/20 17:38 Dose: 10 ml Documented by: RALPH Zolpidem Tartrate (Ambien) 5 mg PO BEDTIME PRN PRN Reason: Insomnia Last Admin: 05/09/20 20:05 Dose: 5 mg Documented by: MJ Labs: Laboratory Tests 07/17/20 07/17/20 07/17/20 Range/Units 16:35 16:55 16:55 WBC 16.57 H (4.23-9.07) K/mm3 RBC 5.08 (4.63-6.08) M/mm3 Hgb 15.1 D (13.7-17.5) gm/dl Hct 44.4 (40.1-51.0) % MCV 87.4 D (79.0-92.2) fl MCH 29.7 (25.7-32.2) pg MCHC 34.0 (32.2-35.5) g/dl RDW Std Deviation 49.0 H (35.1-43.9) fL Plt Count 196 D (163-337) K/mm3 MPV 9.4 (9.4-12.3) fl Neutrophils % (Manual) 86 H (40-60) % Band Neutrophils % 0 (0-10) % Lymphocytes % (Manual) 7 L (20-40) % Atypical Lymphs % 0 % Monocytes % (Manual) 7 (2-10) % Eosinophils % (Manual) 0 L (0.8-7.0) % Basophils % (Manual) 0 L (0.2-1.2) Toxic Granulation Few Platelet Estimate Adequate RBC Morph Comment Normal PT 10.0 (9.7-12.0) SECONDS INR < 0.93 Sodium (136-145) mEq/L Potassium (3.5-5.1) mEq/L Chloride (98-107) mEq/L Carbon Dioxide (21-32) mEq/L Anion Gap (5-15) BUN (7-18) mg/dL Creatinine (0.7-1.3) mg/dL Est Cr Clr Drug Dosing mL/min Estimated GFR (MDRD) (>60) mL/min BUN/Creatinine Ratio (14-18) Glucose (83-115) mg/dL Lactic Acid (0.4-2.0) mmol/L Calcium (8.5-10.1) mg/dL Total Bilirubin (0.2-1.0) mg/dL AST (15-37) U/L ALT (16-63) U/L Alkaline Phosphatase (46-116) U/L C-Reactive Protein (<1.0) mg/dL Total Protein (6.4-8.2) g/dl Albumin (3.4-5.0) g/dl Globulin gm/dL Albumin/Globulin Ratio (1-2) Urine Color (Yellow) Urine Appearance (Clear) Urine pH (5.0-8.0) Ur Specific [place] (1.005-1.030) Urine Protein (Negative) Urine Glucose (UA) (Negative) Urine Ketones (Negative) Urine Occult Blood (Negative) Urine Nitrite (Negative) Urine Bilirubin (Negative) Urine Urobilinogen (0.2-1.0) Ur Leukocyte Esterase (Negative) Urine RBC (0-5) /hpf Urine WBC (0-5) /hpf Ur Squamous Epith Cells (0-5) /hpf Urine Bacteria (FEW) /hpf Urine Mucus (FEW) /hpf Mycoplasma pneumon IgM Negative (NEGATIVE) SARS Virus RNA (PCR) (NEGATIVE) 05/07/20 05/07/20 05/07/20 Range/Units 16:55 16:55 18:34 WBC (4.23-9.07) K/mm3 RBC (4.63-6.08) M/mm3 Hgb (13.7-17.5) gm/dl Hct (40.1-51.0) % MCV (79.0-92.2) fl MCH (25.7-32.2) pg MCHC (32.2-35.5) g/dl RDW Std Deviation (35.1-43.9) fL Plt Count (163-337) K/mm3 MPV (9.4-12.3) fl Neutrophils % (Manual) (40-60) % Band Neutrophils % (0-10) % Lymphocytes % (Manual) (20-40) % Atypical Lymphs % % Monocytes % (Manual) (2-10) % Eosinophils % (Manual) (0.8-7.0) % Basophils % (Manual) (0.2-1.2) Toxic Granulation Platelet Estimate RBC Morph Comment PT (9.7-12.0) SECONDS INR Sodium 132 L (136-145) mEq/L Potassium 4.4 (3.5-5.1) mEq/L Chloride 95 L (98-107) mEq/L Carbon Dioxide 31 (21-32) mEq/L Anion Gap 10.4 (5-15) BUN 38 H (7-18) mg/dL Creatinine 1.2 (0.7-1.3) mg/dL Est Cr Clr Drug Dosing 48.29 mL/min Estimated GFR (MDRD) 58 (>60) mL/min BUN/Creatinine Ratio 31.7 H (14-18) Glucose 96 (83-115) mg/dL Lactic Acid 1.2 (0.4-2.0) mmol/L Calcium 8.9 (8.5-10.1) mg/dL Total Bilirubin 2.0 H (0.2-1.0) mg/dL AST 47 H (15-37) U/L ALT 66 H (16-63) U/L Alkaline Phosphatase 84 (46-116) U/L C-Reactive Protein 10.6 H* (<1.0) mg/dL Total Protein 6.9 (6.4-8.2) g/dl Albumin 3.1 L (3.4-5.0) g/dl Globulin 3.8 gm/dL Albumin/Globulin Ratio 0.8 L (1-2) Urine Color Yellow (Yellow) Urine Appearance Slt cloudy H (Clear) Urine pH 8.5 H (5.0-8.0) Ur Specific [place] 1.015 (1.005-1.030) Urine Protein 2+ H (Negative) Urine Glucose (UA) Negative (Negative) Urine Ketones 2+ H (Negative) Urine Occult Blood 2+ H (Negative) Urine Nitrite Negative (Negative) Urine Bilirubin Negative (Negative) Urine Urobilinogen 1.0 (0.2-1.0) Ur Leukocyte Esterase 3+ H (Negative) Urine RBC 0-5 (0-5) /hpf Urine WBC 5-10 H (0-5) /hpf Ur Squamous Epith Cells 0-5 (0-5) /hpf Urine Bacteria Moderate H (FEW) /hpf Urine Mucus Few (FEW) /hpf Mycoplasma pneumon IgM (NEGATIVE) SARS Virus RNA (PCR) (NEGATIVE) 05/07/20 Range/Units 18:34 WBC (4.23-9.07) K/mm3 RBC (4.63-6.08) M/mm3 Hgb (13.7-17.5) gm/dl Hct (40.1-51.0) % MCV (79.0-92.2) fl MCH (25.7-32.2) pg MCHC (32.2-35.5) g/dl RDW Std Deviation (35.1-43.9) fL Plt Count (163-337) K/mm3 MPV (9.4-12.3) fl Neutrophils % (Manual) (40-60) % Band Neutrophils % (0-10) % Lymphocytes % (Manual) (20-40) % Atypical Lymphs % % Monocytes % (Manual) (2-10) % Eosinophils % (Manual) (0.8-7.0) % Basophils % (Manual) (0.2-1.2) Toxic Granulation Platelet Estimate RBC Morph Comment PT (9.7-12.0) SECONDS INR Sodium (136-145) mEq/L Potassium (3.5-5.1) mEq/L Chloride (98-107) mEq/L Carbon Dioxide (21-32) mEq/L Anion Gap (5-15) BUN (7-18) mg/dL Creatinine (0.7-1.3) mg/dL Est Cr Clr Drug Dosing mL/min Estimated GFR (MDRD) (>60) mL/min BUN/Creatinine Ratio (14-18) Glucose (83-115) mg/dL Lactic Acid (0.4-2.0) mmol/L Calcium (8.5-10.1) mg/dL Total Bilirubin (0.2-1.0) mg/dL AST (15-37) U/L ALT (16-63) U/L Alkaline Phosphatase (46-116) U/L C-Reactive Protein (<1.0) mg/dL Total Protein (6.4-8.2) g/dl Albumin (3.4-5.0) g/dl Globulin gm/dL Albumin/Globulin Ratio (1-2) Urine Color (Yellow) Urine Appearance (Clear) Urine pH (5.0-8.0) Ur Specific [place] (1.005-1.030) Urine Protein (Negative) Urine Glucose (UA) (Negative) Urine Ketones (Negative) Urine Occult Blood (Negative) Urine Nitrite (Negative) Urine Bilirubin (Negative) Urine Urobilinogen (0.2-1.0) Ur Leukocyte Esterase (Negative) Urine RBC (0-5) /hpf Urine WBC (0-5) /hpf Ur Squamous Epith Cells (0-5) /hpf Urine Bacteria (FEW) /hpf Urine Mucus (FEW) /hpf Mycoplasma pneumon IgM (NEGATIVE) SARS Virus RNA (PCR) Negative (NEGATIVE) Meds: Medications Generic Name Dose Route Start Last Admin Trade Name Freq PRN Reason Stop Dose Admin Hydrocodone Bitart/Acetaminophen 1 - 2 tab 05/09/20 18:52 05/09/20 20:06 [place] 325-5 Mg PO 2 tab Q6H PRN Administration Pain Albuterol 2.5 mg 05/07/20 21:04 Proventil Neb Soln NEB Q2H PRN Shortness Of Breath/wheezing Albuterol/Ipratropium 3 ml 05/07/20 21:04 Duoneb 3.0-0.5 Mg/3 Ml NEB Q4H PRN Shortness Of Breath/wheezing Budesonide 0.5 mg 05/08/20 09:00 05/09/20 08:05 Pulmicort NEB 0.5 mg BID MANUEL Administration Enoxaparin Sodium 40 mg 05/08/20 09:00 05/09/20 08:16 Lovenox SUBCUT 40 mg DAILY MANUEL Administration Famotidine 20 mg 05/08/20 13:30 05/09/20 20:05 Pepcid PO 20 mg BID MANUEL Administration Finasteride 5 mg 05/08/20 09:00 05/09/20 08:18 Proscar PO 5 mg DAILY MANUEL Administration Gabapentin 300 mg 05/07/20 09:00 05/09/20 11:00 Neurontin PO 300 mg BID@0900,1200 MANUEL Administration Gabapentin 600 mg 05/07/20 21:00 05/09/20 20:05 Neurontin PO 600 mg BEDTIME MANUEL Administration Glycopyrrolate 15.6 mcg 05/09/20 09:00 05/09/20 08:09 [place] Neohaler IH 1 cap BID MANUEL Administration Guaifenesin/Phenylephrine HCl 10 ml 05/08/20 11:01 05/09/20 20:08 Robitussin Dm PO 10 ml Q4H PRN Administration Cough Hydralazine HCl 20 mg 05/09/20 08:20 Apresoline IVPUSH Q4H PRN Hypertension Cefepime HCl 2 gm/ Premix 50 mls @ 100 mls/hr 05/07/20 17:15 05/09/20 16:21 IV 100 mls/hr Q8H MANUEL Administration Sodium Chloride 1,000 mls @ 125 mls/hr 05/07/20 21:15 05/09/20 18:01 Normal Saline IV 125 mls/hr ASDIRECTED MANUEL Administration Lisinopril 10 mg 05/08/20 09:00 05/08/20 08:32 Prinivil PO 10 mg DAILY MANUEL Administration Mometasone Furoate/Formoterol Fumar 2 puff 05/09/20 09:00 05/09/20 08:09 Dulera 100-5 Mcg IH 2 puff BID MANUEL Administration Ondansetron HCl 4 mg 05/07/20 21:04 Zofran IV Q4H PRN Nausea/Vomiting Sertraline HCl 25 mg 05/08/20 09:00 05/09/20 08:17 Zoloft PO 25 mg DAILY MANUEL Administration Sodium Chloride 10 ml 05/07/20 16:52 05/07/20 17:38 Saline Flush FLUSH 10 ml ASDIRECTED PRN Administration Keep Vein Open Zolpidem Tartrate 5 mg 05/09/20 07:55 05/09/20 20:05 Ambien PO 5 mg BEDTIME PRN Administration Insomnia Discontinued Medications Generic Name Dose Route Start Last Admin Trade Name Freq PRN Reason Stop Dose Admin Hydrocodone Bitart/Acetaminophen 2 tab 05/07/20 21:04 [place] 325-5 Mg PO Q4H PRN Pain (moderate 4-6) Clonidine HCl 0.1 mg 05/09/20 06:22 05/09/20 08:17 Catapres PO 05/09/20 06:23 0.1 mg ONETIME ONE Administration Hydralazine HCl 10 mg 05/07/20 21:40 Apresoline IVPUSH Q4H PRN Hypertension Sodium Chloride 1,000 mls @ 999 mls/hr 05/07/20 16:52 05/07/20 17:13 Normal Saline IV 05/07/20 17:52 999 mls/hr BOLUS ONE Administration Lactated Ringer's 1,000 mls @ 999 mls/hr 05/07/20 19:03 05/07/20 19:00 Ringers, Lactated IV 05/07/20 20:03 999 mls/hr .BOLUS ONE Administration - Re-Assessments/Exams Free Text/Narrative Re-Assessment/Exam: 05/07/20 17:44. WBC 16,600. 86 seg, 0 band, 7 L. CRP 10.6. CXR parenchyml density L upper chest with mildly increased haziness L lung below that, difficult to exclude pneumonia. 2 gram cefepime IV ordered. Will be admitted Dr Mckeon accepting Phys pending covid screen. He has been quite isolated other than family. Lactic acid 1.2, BP has remained good, still tachycardic at 110 to 120. At this time he is still reported to be full code status. 05/09/20 20:16. There was delay getting UA, unable to void initially. It did come back strongly positive for UTI, possible pyelnephritis. Departure - Departure Time of Disposition: 18:30 Disposition: Admitted As Inpatient 66 Condition: Serious Clinical Impression: Pneumonia Qualifiers: Pneumonia type: due to unspecified organism Laterality: unspecified laterality Lung location: unspecified part of lung Qualified Code(s): J18.9 - Pneumonia, unspecified organism UTI (urinary tract infection) Qualifiers: Urinary tract infection type: site unspecified Hematuria presence: without hematuria Qualified Code(s): N39.0 - Urinary tract infection, site not specified - Discharge Information Sepsis Event Note (ED) - Evaluation Sepsis Screening Result: Possible Sepsis Risk ED Communication - Discussed Case With (1) Discussed Case With (1): Admitting Provider (Dr Mckeon, decision to admit at about 18:15 pending covid screen)
[2020-05-07] MEDS: Cefepime 2 GM in Premix Bag 1 BAG IV SCH (17:36)
[2020-05-07] MEDS: Sodium Chloride 0.9% 10 ML Syringe FLUSH PRN (17:38)
[2020-05-07] MEDS ORDERED: Lactated Ringers 1,000 ML IV ONE (19:03)
[2020-05-07] MEDS ORDERED: Albuterol 0.083% 2.5 MG/3 ML Neb Soln NEB PRN (21:04)
[2020-05-07] MEDS ORDERED: Acetaminophen/HYDROcodone 325-5 MG Tab PO PRN (21:04)
[2020-05-07] MEDS ORDERED: Ondansetron 4 MG/2 ML SDV IV PRN (21:04)
[2020-05-07] MEDS ORDERED: Albuterol/Ipratropium 3.0-0.5 MG/3 ML Neb Soln NEB PRN (21:04)
--- NOTE | 2020-05-07 21:28 | PCM.HP.2 ---
H&P History of Present Illness - General Date of Service: 05/07/20 Admit Problem/Dx: Admission Diagnosis/Problem Admission Diagnosis/Problem Pneumonia - History of Present Illness Initial Comments - Free Text/Narative: 79-year-old male with history of lung cancer initially treated in 2018 with chemotherapy and radiation and then earlier this year on immunotherapy presents to the emergency department with complaints of cough, fever, and chills. Unfortunately patient is a poor historian so much of the history was obtained through the emergency department notes. He does state he feels "terrible". He states his cough has not really changed over the last week and and is at his normal shortness of breath. His youngest son sent him to the emergency department via EMS secondary to increasing fatigue and weakness. Patient states he was not eating properly for the last few days. Since transfer to the ICU jerry babb has constantly complained of needing to urinate, but unable to do so. Bladder scan was greater than 400. UA done in the emergency department did show 5-10 WBCs. He denies any abdominal pain, vomiting, change in bowel habits, hematochezia or melena. COVID testing in the emergency department was negative. Initial vital signs temperature in the emergency department was 100.7. Heart rate 113, respiratory rate of 17, blood pressure 127/89, and pulse ox was 92 to 93% room air. Labs: WBC 16.57, hemoglobin 15.1, platelets 196. 86% neutrophils 0% bands. Sodium 132, potassium 4.4, normal anion gap 10.4, BUN 38, creatinine 1.2, estimated GFR 58, BUN to creatinine ratio 31.7, total bilirubin 2.0, AST 47, ALT 66, alkaline phosphatase 84, C-reactive protein 10.6, Lactic acid 1.2. Patient was started on cefepime 2 g every 8 hours in the emergency department. Blood cultures and urine culture was collected. He was given 2 L IV fluid bolus. Chest x-ray was unavailable to me on our system, but it was read by Dr. Zazueta as parenchymal density left upper chest with mildly increased haziness Left lung below that difficult to exclude pneumonia. Chest Pain Score (Numeric/FACES): 2 Bladder Pain Score (Numeric/FACES): 4 - Related Data Allergies/Adverse Reactions: Allergies Allergy/AdvReac Type Severity Reaction Status Date / Time levofloxacin Allergy Cannot Verified 05/07/20 21:00 Remember tamsulosin [From Flomax] AdvReac Intermediate Breast Verified 05/07/20 21:00 Tenderness Home Medications: Home Meds Albuterol Sulfate [Albuterol Sulfate Hfa] 1 inh INH Q6H PRN 02/07/19 [History] Finasteride [Proscar] 5 mg PO DAILY 02/07/19 [History] Fish Oil/[place]-3 Fatty Acids [Fish Oil 1,000 MG] 1,000 mg PO DAILY 02/07/19 [History] Gabapentin [Neurontin] 300 mg PO ASDIRECTED 02/07/19 [History] Hydrocodone/Acetaminophen [Hydrocodone-Acetamin 5-325 mg] 1 - 2 tab PO Q4H PRN 02/07/19 [History] Omeprazole Magnesium [Prilosec Otc] 20 mg PO BID 02/07/19 [History] Sertraline [Zoloft] 25 mg PO DAILY 02/07/19 [History] Umeclidinium [place] [Incruse Ellipta*] 62.5 mcg IH DAILY 02/08/19 [History] Cartilage/Collagen/Bor/Hyalur [Joint Health Tablet] 1 tab PO DAILY 05/07/20 [History] Cod Liver Oil 5 ml PO DAILY 05/07/20 [History] Fluticasone/Vilanterol [Breo Ellipta 100-25 MCG Inhalation Kit] 1 cap INH DAILY 05/07/20 [History] Gabapentin [Neurontin] 600 mg PO BEDTIME 05/07/20 [History] Lidocaine 4% [LMX 4] 1 gm TOP TID PRN 05/07/20 [History] Lisinopril/Hydrochlorothiazide [Lisinopril-HCTZ 10-12.5 MG] 1 tab PO DAILY 05/07/20 [History] Past Medical History HEENT History: Reports: Hard of Hearing, Impaired Vision Cardiovascular History: Reports: Hypertension Respiratory History: Reports: COPD, Pneumonia, Recurrent, SOB, Other (See Below) Other Respiratory History: lung cancer Gastrointestinal History: Reports: GERD Other Gastrointestinal History: EGD in [id number] Genitourinary History: Reports: BPH, UTI, Recurrent Musculoskeletal History: Reports: None 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, Peripheral Psychiatric History: Reports: Depression Endocrine/Metabolic History: Reports: Hypothyroidism Hematologic History: Reports: Other (See Below) Other Immunologic History: chemo induced neuropenia Oncologic (Cancer) History: Reports: Lung Other Oncologic History: Lung cancer 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 Other Dermatologic History: skin cancer on face and head- Dr Darshan sherman [place] - Infectious Disease History Infectious Disease History: Reports: None - Past Surgical History HEENT Surgical History: Reports: None Cardiovascular Surgical History: Reports: None Respiratory Surgical History: Reports: Lung Biopsies Other Respiratory Surgeries/Procedures: Bipopsy March 08 GI Surgical History: Reports: None Male Surgical History: Reports: None Endocrine Surgical History: Reports: None Neurological Surgical History: Reports: None Musculoskeletal Surgical History: Reports: None Oncologic Surgical History: Reports: None Dermatological Surgical History: Reports: None Social & Family History - Family History Family Medical History: Noncontributory - Tobacco Use Smoking Status *Q: Former Smoker Used Tobacco, but Quit: Yes Month/Year Tobacco Last Used: 2007 - Caffeine Use Caffeine Use: Reports: Coffee, Soda - Recreational Drug Use Recreational Drug Use: No - Living Situation & Occupation Living situation: Reports: Single Occupation: Retired H&P Review of Systems - Review of Systems: Review Of Systems: Comprehensive ROS is negative, except as noted in HPI. (Poor historian) Exam - Exam Exam: See Below - Vital Signs Vital Signs: Last Vital Signs Temp 99.0 F 05/07/20 17:30 Pulse 118 H 05/07/20 18:45 Resp 24 H 05/07/20 18:45 BP 129/86 05/07/20 18:45 Pulse Ox 95 05/07/20 18:45 Weight: 82.826 kg - Exam Quality Assessment: No: Supplemental Oxygen General: Alert, Oriented HEENT: Conjunctiva Clear, Mucosa Moist & Dale. No: Hearing Intact (Decreased hearing) Neck: Supple, Trachea Midline, 2 Lungs: Normal Respiratory Effort, Wheezing (Throughout both lung wong left worse than right) Cardiovascular: Regular Rate, Regular Rhythm GI/Abdominal Exam: Soft, No Distention, Tender (Diffusely tender worse in the left upper quadrant) Extremities: Normal Inspection, No Pedal Edema, Normal Capillary Refill. No: Non-Tender (Right calf tenderness without edema or redness.), Redness Peripheral Pulses: 1+: Posterior Tibial (L), Posterior Tibial (R), Dorsalis Pedis (L), Dorsalis Pedis (R) Skin: Warm, Dry, Intact Neurological: Cranial Nerves Intact Neuro Extensive - Mental Status: Alert, Normal Mood/Affect, Slow Response to Commands. No: Normal Cognition (Difficult historian with appropriate responses but not full responses.) Psychiatric: Alert, Normal Mood. No: Normal Affect (Flat) - Patient Data Lab Results Last 24 hrs: Laboratory Results - last 24 hr 05/07/20 05/07/20 05/07/20 Range/Units 16:35 16:55 16:55 WBC 16.57 H (4.23-9.07) K/mm3 RBC 5.08 (4.63-6.08) M/mm3 Hgb 15.1 D (13.7-17.5) gm/dl Hct 44.4 (40.1-51.0) % MCV 87.4 D (79.0-92.2) fl MCH 29.7 (25.7-32.2) pg MCHC 34.0 (32.2-35.5) g/dl RDW Std Deviation 49.0 H (35.1-43.9) fL Plt Count 196 D (163-337) K/mm3 MPV 9.4 (9.4-12.3) fl Neutrophils % (Manual) 86 H (40-60) % Band Neutrophils % 0 (0-10) % Lymphocytes % (Manual) 7 L (20-40) % Atypical Lymphs % 0 % Monocytes % (Manual) 7 (2-10) % Eosinophils % (Manual) 0 L (0.8-7.0) % Basophils % (Manual) 0 L (0.2-1.2) Toxic Granulation Few Platelet Estimate Adequate RBC Morph Comment Normal PT 10.0 (9.7-12.0) SECONDS INR < 0.93 Sodium (136-145) mEq/L Potassium (3.5-5.1) mEq/L Chloride (98-107) mEq/L Carbon Dioxide (21-32) mEq/L Anion Gap (5-15) BUN (7-18) mg/dL Creatinine (0.7-1.3) mg/dL Est Cr Clr Drug Dosing mL/min Estimated GFR (MDRD) (>60) mL/min BUN/Creatinine Ratio (14-18) Glucose (83-115) mg/dL Lactic Acid (0.4-2.0) mmol/L Calcium (8.5-10.1) mg/dL Total Bilirubin (0.2-1.0) mg/dL AST (15-37) U/L ALT (16-63) U/L Alkaline Phosphatase (46-116) U/L C-Reactive Protein (<1.0) mg/dL Total Protein (6.4-8.2) g/dl Albumin (3.4-5.0) g/dl Globulin gm/dL Albumin/Globulin Ratio (1-2) Urine Color (Yellow) Urine Appearance (Clear) Urine pH (5.0-8.0) Ur Specific Muse (1.005-1.030) Urine Protein (Negative) Urine Glucose (UA) (Negative) Urine Ketones (Negative) Urine Occult Blood (Negative) Urine Nitrite (Negative) Urine Bilirubin (Negative) Urine Urobilinogen (0.2-1.0) Ur Leukocyte Esterase (Negative) Urine RBC (0-5) /hpf Urine WBC (0-5) /hpf Ur Squamous Epith Cells (0-5) /hpf Urine Bacteria (FEW) /hpf Urine Mucus (FEW) /hpf Mycoplasma pneumon IgM Negative (NEGATIVE) SARS Virus RNA (PCR) (NEGATIVE) 05/07/20 05/07/20 05/07/20 Range/Units 16:55 16:55 18:34 WBC (4.23-9.07) K/mm3 RBC (4.63-6.08) M/mm3 Hgb (13.7-17.5) gm/dl Hct (40.1-51.0) % MCV (79.0-92.2) fl MCH (25.7-32.2) pg MCHC (32.2-35.5) g/dl RDW Std Deviation (35.1-43.9) fL Plt Count (163-337) K/mm3 MPV (9.4-12.3) fl Neutrophils % (Manual) (40-60) % Band Neutrophils % (0-10) % Lymphocytes % (Manual) (20-40) % Atypical Lymphs % % Monocytes % (Manual) (2-10) % Eosinophils % (Manual) (0.8-7.0) % Basophils % (Manual) (0.2-1.2) Toxic Granulation Platelet Estimate RBC Morph Comment PT (9.7-12.0) SECONDS INR Sodium 132 L (136-145) mEq/L Potassium 4.4 (3.5-5.1) mEq/L Chloride 95 L (98-107) mEq/L Carbon Dioxide 31 (21-32) mEq/L Anion Gap 10.4 (5-15) BUN 38 H (7-18) mg/dL Creatinine 1.2 (0.7-1.3) mg/dL Est Cr Clr Drug Dosing 48.29 mL/min Estimated GFR (MDRD) 58 (>60) mL/min BUN/Creatinine Ratio 31.7 H (14-18) Glucose 96 (83-115) mg/dL Lactic Acid 1.2 (0.4-2.0) mmol/L Calcium 8.9 (8.5-10.1) mg/dL Total Bilirubin 2.0 H (0.2-1.0) mg/dL AST 47 H (15-37) U/L ALT 66 H (16-63) U/L Alkaline Phosphatase 84 (46-116) U/L C-Reactive Protein 10.6 H* (<1.0) mg/dL Total Protein 6.9 (6.4-8.2) g/dl Albumin 3.1 L (3.4-5.0) g/dl Globulin 3.8 gm/dL Albumin/Globulin Ratio 0.8 L (1-2) Urine Color Yellow (Yellow) Urine Appearance Slt cloudy H (Clear) Urine pH 8.5 H (5.0-8.0) Ur Specific Muse 1.015 (1.005-1.030) Urine Protein 2+ H (Negative) Urine Glucose (UA) Negative (Negative) Urine Ketones 2+ H (Negative) Urine Occult Blood 2+ H (Negative) Urine Nitrite Negative (Negative) Urine Bilirubin Negative (Negative) Urine Urobilinogen 1.0 (0.2-1.0) Ur Leukocyte Esterase 3+ H (Negative) Urine RBC 0-5 (0-5) /hpf Urine WBC 5-10 H (0-5) /hpf Ur Squamous Epith Cells 0-5 (0-5) /hpf Urine Bacteria Moderate H (FEW) /hpf Urine Mucus Few (FEW) /hpf Mycoplasma pneumon IgM (NEGATIVE) SARS Virus RNA (PCR) (NEGATIVE) 05/07/20 Range/Units 18:34 WBC (4.23-9.07) K/mm3 RBC (4.63-6.08) M/mm3 Hgb (13.7-17.5) gm/dl Hct (40.1-51.0) % MCV (79.0-92.2) fl MCH (25.7-32.2) pg MCHC (32.2-35.5) g/dl RDW Std Deviation (35.1-43.9) fL Plt Count (163-337) K/mm3 MPV (9.4-12.3) fl Neutrophils % (Manual) (40-60) % Band Neutrophils % (0-10) % Lymphocytes % (Manual) (20-40) % Atypical Lymphs % % Monocytes % (Manual) (2-10) % Eosinophils % (Manual) (0.8-7.0) % Basophils % (Manual) (0.2-1.2) Toxic Granulation Platelet Estimate RBC Morph Comment PT (9.7-12.0) SECONDS INR Sodium (136-145) mEq/L Potassium (3.5-5.1) mEq/L Chloride (98-107) mEq/L Carbon Dioxide (21-32) mEq/L Anion Gap (5-15) BUN (7-18) mg/dL Creatinine (0.7-1.3) mg/dL Est Cr Clr Drug Dosing mL/min Estimated GFR (MDRD) (>60) mL/min BUN/Creatinine Ratio (14-18) Glucose (83-115) mg/dL Lactic Acid (0.4-2.0) mmol/L Calcium (8.5-10.1) mg/dL Total Bilirubin (0.2-1.0) mg/dL AST (15-37) U/L ALT (16-63) U/L Alkaline Phosphatase (46-116) U/L C-Reactive Protein (<1.0) mg/dL Total Protein (6.4-8.2) g/dl Albumin (3.4-5.0) g/dl Globulin gm/dL Albumin/Globulin Ratio (1-2) Urine Color (Yellow) Urine Appearance (Clear) Urine pH (5.0-8.0) Ur Specific Muse (1.005-1.030) Urine Protein (Negative) Urine Glucose (UA) (Negative) Urine Ketones (Negative) Urine Occult Blood (Negative) Urine Nitrite (Negative) Urine Bilirubin (Negative) Urine Urobilinogen (0.2-1.0) Ur Leukocyte Esterase (Negative) Urine RBC (0-5) /hpf Urine WBC (0-5) /hpf Ur Squamous Epith Cells (0-5) /hpf Urine Bacteria (FEW) /hpf Urine Mucus (FEW) /hpf Mycoplasma pneumon IgM (NEGATIVE) SARS Virus RNA (PCR) Negative (NEGATIVE) Result Diagrams: 05/07/20 16:55 05/07/20 16:55 Sepsis Event Note - Evaluation Sepsis Screening Result: Possible Sepsis Risk - Focused Exam Vital Signs: Vital Signs Temp Pulse Resp BP Pulse Ox 05/07/20 18:45 118 H 24 H 129/86 95 05/07/20 18:00 141/91 H 05/07/20 17:30 99.0 F 109 H 142/87 H 93 L 05/07/20 17:15 115 H 25 H 130/88 94 L 05/07/20 17:00 111/86 05/07/20 16:52 141/91 H 05/07/20 16:20 100.7 F H 113 H 17 127/89 92 L Date Exam was Performed: 05/07/20 Time Exam was Performed: 22:30 Problem List Initiated/Reviewed/Updated: Yes Orders Last 24hrs: Active Orders 24 hr Category Date Time Status Admission Status [Patient Status] [ADT] Routine ADT 05/07/20 19:32 Active Bladder Scan [RC] ASDIRECTED Care 05/07/20 21:03 Active Blood Pressure Mgt: Sepsis [RC] [id number] Care 05/07/20 16:53 Active Communication Order [RC] ASDIRECTED Care 05/07/20 21:03 Active Insert Urinary Catheter [OM.PC] ASDIRECTED Care 05/07/20 21:15 Ordered Notify Provider Intake and Out [RC] ASDIRECTED Care 05/07/20 21:03 Active Oxygen Therapy [RC] PRN Care 05/07/20 21:04 Active RT Aerosol Therapy [RC] ASDIRECTED Care 05/07/20 21:07 Active Up With Assistance [RC] ASDIRECTED Care 05/07/20 21:04 Active Urinary Catheter Assessment [RC] ASDIRECTED Care 05/07/20 21:03 Active VTE/DVT Education [RC] PER UNIT ROUTINE Care 05/07/20 21:04 Active Vital Signs [RC] Q4H Care 05/07/20 21:04 Active Consult to Case Management/Court Crier [CONS] Cons 05/07/20 21:04 Active Routine Consult to Rd Mechanical Engineer [CONS] Routine Cons 05/07/20 21:04 Active OT Evaluation and Treatment [CONS] Routine Cons 05/07/20 21:04 Active PT Evaluation and Treatment [CONS] Routine Cons 05/07/20 21:04 Active Regular Diet [DIET] Diet 05/08/20 Breakfast Active CXR [Chest 1V Frontal] [CR] Stat Exams 05/07/20 17:08 Taken C-REACTIVE PROTEIN [CHEM] AM Lab 05/08/20 05:11 Ordered CBC WITH AUTO DIFF [HEME] AM Lab 05/08/20 05:11 Ordered COMPREHENSIVE METABOLIC PN,CMP [CHEM] AM Lab 05/08/20 05:11 Ordered CULTURE BLOOD [BC] Stat Lab 05/07/20 17:20 Received CULTURE BLOOD [BC] Stat Lab 05/07/20 17:33 Received CULTURE URINE [RM] Routine Lab 05/07/20 19:20 Received MAGNESIUM [CHEM] AM Lab 05/08/20 05:11 Ordered Acetaminophen/HYDROcodone [[place] 325-5 MG] Med 05/07/20 21:04 Ordered 2 tab PO Q4H PRN Albuterol [Proventil Neb Soln] Med 05/07/20 21:04 Ordered 2.5 mg NEB Q2H PRN Albuterol/Ipratropium [DuoNeb 3.0-0.5 MG/3 ML] Med 05/07/20 21:04 Ordered 3 ml NEB Q4H PRN Budesonide [Pulmicort] Med 05/08/20 06:00 Ordered 0.5 mg NEB BIDRT Cefepime [Maxipime in D5W 2 GM/50 ML] 2 gm Med 05/07/20 17:15 Active Premix Bag 1 bag IV Q8H Enoxaparin [Lovenox] Med 05/08/20 09:00 Ordered 40 mg SUBCUT DAILY Finasteride [Proscar] Med 05/08/20 09:00 Active 5 mg PO DAILY Gabapentin [Neurontin] Med 05/07/20 21:15 Ordered 300 mg PO ASDIRECTED Gabapentin [Neurontin] Med 05/07/20 21:00 Ordered 600 mg PO BEDTIME Ondansetron [Zofran] Med 05/07/20 21:04 Active 4 mg IV Q4H PRN Sertraline [Zoloft] Med 05/08/20 09:00 Active 25 mg PO DAILY Sodium Chloride 0.9% [Normal Saline] 1,000 ml Med 05/07/20 21:15 Active IV ASDIRECTED Sodium Chloride 0.9% [Saline Flush] Med 05/07/20 16:52 Active 10 ml FLUSH ASDIRECTED PRN Blood Culture x2 Reflex Set [OM.PC] Stat Ot 05/07/20 16:52 Ordered Saline Lock Insert [OM.PC] Stat Oth 05/07/20 16:52 Ordered Resuscitation Status Routine Resus Stat 05/07/20 21:04 Ordered Medication Orders Hydrocodone Bitart/Acetaminophen ([place] 325-5 Mg) 2 tab PO Q4H PRN PRN Reason: Pain (moderate 4-6) Albuterol (Proventil Neb Soln) 2.5 mg NEB Q2H PRN PRN Reason: Shortness Of Breath/wheezing Albuterol/Ipratropium (Duoneb 3.0-0.5 Mg/3 Ml) 3 ml NEB Q4H PRN PRN Reason: Shortness Of Breath/wheezing Budesonide (Pulmicort) 0.5 mg NEB BIDRT [facility] Enoxaparin Sodium (Lovenox) 40 mg SUBCUT DAILY [facility] Finasteride (Proscar) 5 mg PO DAILY [facility] Gabapentin (Neurontin) 300 mg PO ASDIRECTED MANUEL Gabapentin (Neurontin) 600 mg PO BEDTIME [facility] Cefepime HCl 2 gm/ Premix 50 mls @ 100 mls/hr IV Q8H [facility] Last Admin: 05/07/20 17:36 Dose: 100 mls/hr Documented by: MARY Sodium Chloride (Normal Saline) 1,000 mls @ 125 mls/hr IV ASDIRECTED [facility]UEL Ondansetron HCl (Zofran) 4 mg IV Q4H PRN PRN Reason: Nausea/Vomiting Sertraline HCl (Zoloft) 25 mg PO DAILY [facility] Sodium Chloride (Saline Flush) 10 ml FLUSH ASDIRECTED PRN PRN Reason: Keep Vein Open Last Admin: 05/07/20 17:38 Dose: 10 ml Documented by: RALPH Assessment/Plan Comment:: Assessment * 79-year-old male with left sided upper lobe lung cancer not receiving treatment presents with cough, fever, and weakness. Chest x-ray shows possible left-sided pneumonia. Patient was started on cefepime in the emerge ncy department. * UTI with urinary retention. UA shows 5-10 WBCs and patient had urinary retention of greater than 400. Urine culture obtained and started on antibiotics. * COPD-patient stopped smoking in 2007. He is currently in a chronic state. He is on multiple inhalers at home and there is question if he has been taking his medications correctly. * Acute renal injury secondary to prerenal disease. Patient's BUN to creatinine ratio is greater than 30 consistent with hypovolemia. Patient states he has had poor oral intake for the last few days. Given 2 L of IV fluids in the emergency department. * Hyponatremia likely multifactorial. * Elevated liver enzymes with abdominal tenderness -AST 47, ALT 66, total bilirubin 2.0, albumin 3.1, INR less than 0.93 Chronic: Hypertension, recurrent pneumonia, BPH, peripheral neuropathy, depression, hypothyroidism Plan * Admit to ICU secondary to concerns for decompensating respiratory status * IV rehydration * Continue cefepime for antibiotics * Blood and urine cultures * Follow CBC, CMP, magnesium, and C-reactive protein * If symptoms of abdominal pain or liver enzymes do not improve may consider ultrasound or CT in the morning. * Consult PT, OT, case management, social worker palliative care * Reconcile home meds * Budesonide twice daily, albuterol every 2 hours as needed, DuoNeb every 4 hours as needed * Urinary retention protocol. * Regular diet * VTE prophylaxis with Lovenox * CODE STATUS: Full code. This should be readdressed in the morning. * Length of stay likely 2 to 3 days. - Mortality Measure Prognosis:: Poor
[2020-05-07] MEDS ORDERED: hydrALAZINE 20 MG/ML SDV IVPUSH PRN (21:40)
[2020-05-07] MEDS: Gabapentin 300 MG Cap PO SCH (22:06)
[2020-05-07] MEDS: Gabapentin 600 MG Tab PO SCH (22:27)
[2020-05-07] MEDS: Sodium Chloride 0.9% 1,000 ML IV SCH (23:07)
[2020-05-08] MEDS: Cefepime 2 GM in Premix Bag 1 BAG IV SCH ×3 (02:24→16:30)
--- NOTE | 2020-05-08 07:12 | PCM.PN ---
- General Info Date of Service: 05/08/20 Admission Dx/Problem (Free Text): Admission Diagnosis/Problem Admission Diagnosis/Problem Pneumonia Subjective Update: 05/08/20: No change in condition. He stated he felt about the same but no new complaints. Has mccrary catheter for urinary incontinence but also has bowel incontinence which he gets it from time to time. His WBC drops down to 12.6K. He is afebrile since admission to the unit. Functional Status: Reports: Pain Controlled - Review of Systems General: Reports: Fatigue, Malaise. Denies: Fever HEENT: Reports: No Symptoms Pulmonary: Reports: Shortness of Breath, Cough, Sputum Cardiovascular: Denies: Chest Pain, Dyspnea on Exertion, Lightheadedness Gastrointestinal: Reports: Decreased Appetite, Diarrhea, Other (bowel incontinence). Denies: Abdominal Pain, Nausea, Vomiting Genitourinary: Reports: Incontinence Musculoskeletal: Reports: No Symptoms Skin: Denies: Cyanosis, Rash Neurological: Reports: Weakness. Denies: Confusion, Difficulty Walking, Gait Disturbance Psychiatric: Denies: Anxiety, Agitation, Hallucinations - Patient Data Vitals - Most Recent: Last Vital Signs Temp 36.5 C 05/08/20 03:33 Pulse 118 H 05/07/20 18:45 Resp 23 H 05/08/20 03:33 BP 142/80 H 05/08/20 03:33 Pulse Ox 93 L 05/08/20 03:33 Weight - Most Recent: 82.645 kg I&O - Last 24 Hours: Intake & Output 05/07/20 05/08/20 05/08/20 22:59 06:59 14:59 Intake Total 521 Output Total 1150 Balance -629 Lab Results Last 24 Hours: Laboratory Results - last 24 hr 05/07/20 05/07/20 05/07/20 Range/Units 16:35 16:55 16:55 WBC 16.57 H (4.23-9.07) K/mm3 RBC 5.08 (4.63-6.08) M/mm3 Hgb 15.1 D (13.7-17.5) gm/dl Hct 44.4 (40.1-51.0) % MCV 87.4 D (79.0-92.2) fl MCH 29.7 (25.7-32.2) pg MCHC 34.0 (32.2-35.5) g/dl RDW Std Deviation 49.0 H (35.1-43.9) fL Plt Count 196 D (163-337) K/mm3 MPV 9.4 (9.4-12.3) fl Neut % (Auto) (34.0-67.9) % Lymph % (Auto) (21.8-53.1) % [place] % (Auto) (5.3-12.2) % Eos % (Auto) (0.8-7.0) Baso % (Auto) (0.1-1.2) % Neut # (Auto) (1.78-5.38) K/mm3 Lymph # (Auto) (1.32-3.57) K/mm3 [place] # (Auto) (0.30-0.82) K/mm3 Eos # (Auto) (0.04-0.54) K/mm3 Baso # (Auto) (0.01-0.08) K/mm3 Neutrophils % (Manual) 86 H (40-60) % Band Neutrophils % 0 (0-10) % Lymphocytes % (Manual) 7 L (20-40) % Atypical Lymphs % 0 % Monocytes % (Manual) 7 (2-10) % Eosinophils % (Manual) 0 L (0.8-7.0) % Basophils % (Manual) 0 L (0.2-1.2) Manual Slide Review Toxic Granulation Few Platelet Estimate Adequate RBC Morph Comment Normal PT 10.0 (9.7-12.0) SECONDS INR < 0.93 Sodium (136-145) mEq/L Potassium (3.5-5.1) mEq/L Chloride (98-107) mEq/L Carbon Dioxide (21-32) mEq/L Anion Gap (5-15) BUN (7-18) mg/dL Creatinine (0.7-1.3) mg/dL Est Cr Clr Drug Dosing mL/min Estimated GFR (MDRD) (>60) mL/min BUN/Creatinine Ratio (14-18) Glucose (83-115) mg/dL Lactic Acid (0.4-2.0) mmol/L Calcium (8.5-10.1) mg/dL Magnesium (1.8-2.4) mg/dl Total Bilirubin (0.2-1.0) mg/dL AST (15-37) U/L ALT (16-63) U/L Alkaline Phosphatase (46-116) U/L C-Reactive Protein (<1.0) mg/dL Total Protein (6.4-8.2) g/dl Albumin (3.4-5.0) g/dl Globulin gm/dL Albumin/Globulin Ratio (1-2) Urine Color (Yellow) Urine Appearance (Clear) Urine pH (5.0-8.0) Ur Specific [place] (1.005-1.030) Urine Protein (Negative) Urine Glucose (UA) (Negative) Urine Ketones (Negative) Urine Occult Blood (Negative) Urine Nitrite (Negative) Urine Bilirubin (Negative) Urine Urobilinogen (0.2-1.0) Ur Leukocyte Esterase (Negative) Urine RBC (0-5) /hpf Urine WBC (0-5) /hpf Ur Squamous Epith Cells (0-5) /hpf Urine Bacteria (FEW) /hpf Urine Mucus (FEW) /hpf Mycoplasma pneumon IgM Negative (NEGATIVE) SARS Virus RNA (PCR) (NEGATIVE) 05/07/20 05/07/20 05/07/20 Range/Units 16:55 16:55 18:34 WBC (4.23-9.07) K/mm3 RBC (4.63-6.08) M/mm3 Hgb (13.7-17.5) gm/dl Hct (40.1-51.0) % MCV (79.0-92.2) fl MCH (25.7-32.2) pg MCHC (32.2-35.5) g/dl RDW Std Deviation (35.1-43.9) fL Plt Count (163-337) K/mm3 MPV (9.4-12.3) fl Neut % (Auto) (34.0-67.9) % Lymph % (Auto) (21.8-53.1) % [place] % (Auto) (5.3-12.2) % Eos % (Auto) (0.8-7.0) Baso % (Auto) (0.1-1.2) % Neut # (Auto) (1.78-5.38) K/mm3 Lymph # (Auto) (1.32-3.57) K/mm3 [place] # (Auto) (0.30-0.82) K/mm3 Eos # (Auto) (0.04-0.54) K/mm3 Baso # (Auto) (0.01-0.08) K/mm3 Neutrophils % (Manual) (40-60) % Band Neutrophils % (0-10) % Lymphocytes % (Manual) (20-40) % Atypical Lymphs % % Monocytes % (Manual) (2-10) % Eosinophils % (Manual) (0.8-7.0) % Basophils % (Manual) (0.2-1.2) Manual Slide Review Toxic Granulation Platelet Estimate RBC Morph Comment PT (9.7-12.0) SECONDS INR Sodium 132 L (136-145) mEq/L Potassium 4.4 (3.5-5.1) mEq/L Chloride 95 L (98-107) mEq/L Carbon Dioxide 31 (21-32) mEq/L Anion Gap 10.4 (5-15) BUN 38 H (7-18) mg/dL Creatinine 1.2 (0.7-1.3) mg/dL Est Cr Clr Drug Dosing 48.29 mL/min Estimated GFR (MDRD) 58 (>60) mL/min BUN/Creatinine Ratio 31.7 H (14-18) Glucose 96 (83-115) mg/dL Lactic Acid 1.2 (0.4-2.0) mmol/L Calcium 8.9 (8.5-10.1) mg/dL Magnesium (1.8-2.4) mg/dl Total Bilirubin 2.0 H (0.2-1.0) mg/dL AST 47 H (15-37) U/L ALT 66 H (16-63) U/L Alkaline Phosphatase 84 (46-116) U/L C-Reactive Protein 10.6 H* (<1.0) mg/dL Total Protein 6.9 (6.4-8.2) g/dl Albumin 3.1 L (3.4-5.0) g/dl Globulin 3.8 gm/dL Albumin/Globulin Ratio 0.8 L (1-2) Urine Color Yellow (Yellow) Urine Appearance Slt cloudy H (Clear) Urine pH 8.5 H (5.0-8.0) Ur Specific [place] 1.015 (1.005-1.030) Urine Protein 2+ H (Negative) Urine Glucose (UA) Negative (Negative) Urine Ketones 2+ H (Negative) Urine Occult Blood 2+ H (Negative) Urine Nitrite Negative (Negative) Urine Bilirubin Negative (Negative) Urine Urobilinogen 1.0 (0.2-1.0) Ur Leukocyte Esterase 3+ H (Negative) Urine RBC 0-5 (0-5) /hpf Urine WBC 5-10 H (0-5) /hpf Ur Squamous Epith Cells 0-5 (0-5) /hpf Urine Bacteria Moderate H (FEW) /hpf Urine Mucus Few (FEW) /hpf Mycoplasma pneumon IgM (NEGATIVE) SARS Virus RNA (PCR) (NEGATIVE) 05/07/20 05/08/20 05/08/20 Range/Units 18:34 04:20 04:20 WBC 12.60 H (4.23-9.07) K/mm3 RBC 4.37 L (4.63-6.08) M/mm3 Hgb 12.9 L D (13.7-17.5) gm/dl Hct 38.3 L (40.1-51.0) % MCV 87.6 (79.0-92.2) fl MCH 29.5 (25.7-32.2) pg MCHC 33.7 (32.2-35.5) g/dl RDW Std Deviation 48.6 H (35.1-43.9) fL Plt Count 154 L (163-337) K/mm3 MPV 9.3 L (9.4-12.3) fl Neut % (Auto) 80.6 H (34.0-67.9) % Lymph % (Auto) 5.8 L (21.8-53.1) % [place] % (Auto) 9.4 (5.3-12.2) % Eos % (Auto) 1.0 (0.8-7.0) Baso % (Auto) 0.2 (0.1-1.2) % Neut # (Auto) 10.16 H (1.78-5.38) K/mm3 Lymph # (Auto) 0.73 L (1.32-3.57) K/mm3 [place] # (Auto) 1.18 H (0.30-0.82) K/mm3 Eos # (Auto) 0.12 (0.04-0.54) K/mm3 Baso # (Auto) 0.03 (0.01-0.08) K/mm3 Neutrophils % (Manual) (40-60) % Band Neutrophils % (0-10) % Lymphocytes % (Manual) (20-40) % Atypical Lymphs % % Monocytes % (Manual) (2-10) % Eosinophils % (Manual) (0.8-7.0) % Basophils % (Manual) (0.2-1.2) Manual Slide Review Abnormal smear Toxic Granulation Platelet Estimate RBC Morph Comment PT (9.7-12.0) SECONDS INR Sodium 134 L (136-145) mEq/L Potassium 4.4 (3.5-5.1) mEq/L Chloride 100 (98-107) mEq/L Carbon Dioxide 27 (21-32) mEq/L Anion Gap 11.4 (5-15) BUN 28 H (7-18) mg/dL Creatinine 0.8 (0.7-1.3) mg/dL Est Cr Clr Drug Dosing 72.44 mL/min Estimated GFR (MDRD) > 60 (>60) mL/min BUN/Creatinine Ratio 35.0 H (14-18) Glucose 94 (83-115) mg/dL Lactic Acid (0.4-2.0) mmol/L Calcium 8.2 L (8.5-10.1) mg/dL Magnesium 1.8 (1.8-2.4) mg/dl Total Bilirubin 1.9 H (0.2-1.0) mg/dL AST 58 H (15-37) U/L ALT 56 (16-63) U/L Alkaline Phosphatase 58 (46-116) U/L C-Reactive Protein 13.3 H* (<1.0) mg/dL Total Protein 5.6 L (6.4-8.2) g/dl Albumin 2.3 L (3.4-5.0) g/dl Globulin 3.3 gm/dL Albumin/Globulin Ratio 0.7 L (1-2) Urine Color (Yellow) Urine Appearance (Clear) Urine pH (5.0-8.0) Ur Specific [place] (1.005-1.030) Urine Protein (Negative) Urine Glucose (UA) (Negative) Urine Ketones (Negative) Urine Occult Blood (Negative) Urine Nitrite (Negative) Urine Bilirubin (Negative) Urine Urobilinogen (0.2-1.0) Ur Leukocyte Esterase (Negative) Urine RBC (0-5) /hpf Urine WBC (0-5) /hpf Ur Squamous Epith Cells (0-5) /hpf Urine Bacteria (FEW) /hpf Urine Mucus (FEW) /hpf Mycoplasma pneumon IgM (NEGATIVE) SARS Virus RNA (PCR) Negative (NEGATIVE) Med Orders - Current: Current Medications Hydrocodone Bitart/Acetaminophen ([place] 325-5 Mg) 2 tab PO Q4H PRN PRN Reason: Pain (moderate 4-6) Albuterol (Proventil Neb Soln) 2.5 mg NEB Q2H PRN PRN Reason: Shortness Of Breath/wheezing Albuterol/Ipratropium (Duoneb 3.0-0.5 Mg/3 Ml) 3 ml NEB Q4H PRN PRN Reason: Shortness Of Breath/wheezing Budesonide (Pulmicort) 0.5 mg NEB BID [facility] Enoxaparin Sodium (Lovenox) 40 mg SUBCUT DAILY [facility] Finasteride (Proscar) 5 mg PO DAILY [facility] Gabapentin (Neurontin) 300 mg PO BID@0900,1200 [facility] Last Admin: 05/07/20 22:06 Dose: Not Given Documented by: Gabapentin (Neurontin) 600 mg PO BEDTIME [facility] Last Admin: 05/07/20 22:27 Dose: 600 mg Documented by: Hydralazine HCl (Apresoline) 10 mg IVPUSH Q4H PRN PRN Reason: Hypertension Cefepime HCl 2 gm/ Premix 50 mls @ 100 mls/hr IV Q8H [facility] Last Admin: 05/08/20 02:24 Dose: 100 mls/hr Documented by: Sodium Chloride (Normal Saline) 1,000 mls @ 125 mls/hr IV ASDIRECTED [facility] Last Admin: 05/07/20 23:07 Dose: 125 mls/hr Documented by: Lisinopril (Prinivil) 10 mg PO DAILY [facility] Ondansetron HCl (Zofran) 4 mg IV Q4H PRN PRN Reason: Nausea/Vomiting Sertraline HCl (Zoloft) 25 mg PO DAILY [facility] Sodium Chloride (Saline Flush) 10 ml FLUSH ASDIRECTED PRN PRN Reason: Keep Vein Open Last Admin: 05/07/20 17:38 Dose: 10 ml Documented by: Discontinued Medications Sodium Chloride (Normal Saline) 1,000 mls @ 999 mls/hr IV BOLUS ONE Stop: 05/07/20 17:52 Last Admin: 05/07/20 17:13 Dose: 999 mls/hr Documented by: Lactated Ringer's (Ringers, Lactated) 1,000 mls @ 999 mls/hr IV .BOLUS ONE Stop: 05/07/20 20:03 Last Admin: 05/07/20 19:00 Dose: 999 mls/hr Documented by: - Exam General: Alert, Oriented, Cooperative, No Acute Distress HEENT: Pupils Equal, Pupils Reactive, EOMI, Mucous Membr. Moist/[place] Neck: Supple Lungs: Normal Respiratory Effort, Decreased Breath Sounds (on the left side of his lungs) Cardiovascular: Tachycardia GI/Abdominal Exam: Normal Bowel Sounds, Soft, Non-Tender, No Organomegaly, No Distention (Male) Exam: Other (indwelling mccrary catheter) Extremities: Normal Inspection, Normal Range of Motion, Non-Tender, No Pedal Edema, Normal Capillary Refill Peripheral Pulses: 2+: Dorsalis Pedis (L), Dorsalis Pedis (R) Skin: Warm, Dry, Intact Neurological: No New Focal Deficit Psy/Mental Status: Alert, Normal Affect, Normal Mood Sepsis Event Note - Evaluation Sepsis Screening Result: Possible Sepsis Risk - Focused Exam Vital Signs: Vital Signs Temp Resp BP Pulse Ox Pulse Ox 05/08/20 03:33 36.5 C 23 H 142/80 H 93 L 05/08/20 00:00 36.7 C 17 144/80 H 95 05/07/20 21:04 37.2 C 24 H 173/103 H 99 99 Date Exam was Performed: 05/08/20 Time Exam was Performed: 16:25 - Problem List Review Problem List Initiated/Reviewed/Updated: Yes - Plan Plan:: Assessment * 79-year-old male with left sided upper lobe lung cancer not receiving treatment presents with cough, fever, and weakness. Chest x-ray shows possible left-sided pneumonia. Patient was started on cefepime in the emergency department. * Sepsis 2/2 combined UTI/Post-Obstructive Pneumonia, POA. Meets criteria: fever, tachycardic, tachypneic, leukocytosis with 2 sources. Currently on monotherapy with Cefepime 2 grams IV Q8H. Blood cultures are pending. * UTI with urinary retention. UA shows 5-10 WBCs and patient had urinary retention of greater than 400. Urine culture obtained. Continue IV cefepime. * COPD-patient stopped smoking in 2007. He is currently in a chronic state. He is on multiple inhalers at home and there is question if he has been taking his medications correctly. No acute exacerbation. He is currently on RA sating at 93-97%. * Hypovolemic hyponatremia likely multifactorial. He is on HCTZ and Zoloft both known to cause sodium loss. 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 Na improved to 134 after receiving 2L of NS last night. Continue to hold HCTZ and resume Zoloft. * Elevated liver enzymes with abdominal tenderness -AST 47, ALT 66, total bilirubin 2.0, albumin 3.1, INR less than 0.93. Query hypoperfusion but he was never hypotensive. LA was normal. Will repeat level this morning. Avoid acetaminophen and hold statin if he is on. * Leukocytosis with WB Cof 12.60. POA. This is 2/2 underlying above infections. Has no improved to 12.6K. Continue IV antibiotic. * Pseudo-anemia. Hgb of 12.9. This is hemodilution from volume resuscitation last night. NO active bleeding. We will monitor. * Pseudo-thrombocytopenia. He now has platelet of 154. Again, thrombo-dilution for volume resuscitation overnight. * Mild Hypocalcemia. He now has Ca of 8.2. This is likely due to inadequate intake. Encourage to patient to eat and drink. * Mild Hyperbilirubinemia, POA. He comes in with a total bilirubin of 2/0, now at 1.9. This is like due to starvation/fasting. We will monitor. * Hypoalbuminemia, POA. He comes in with an albumin level of 3.1 not 2.3 . Joslyn choe's consult for low protein state. * Hypertension, POA. Now improved. We will continue to monitor. * Diarrhea/bowel incontinence r/o C. Diff. Resolved: * Acute renal injury secondary to prerenal disease. Patient's BUN to creatinine ratio is greater than 30 consistent with hypovolemia. Patient states he has had poor oral intake for the last few days. Given 2 L of IV fluids in the emergency department. Resolved. Chronic: Hypertension, recurrent pneumonia, BPH, peripheral neuropathy, depression, hypothyroidism Plan * Continue current treatment with IV fluids and antibiotic * Pending blood and urine cultures * Follow CBC, CMP, magnesium, and C-reactive protein * Consult PT/OT, case management, psychosocial rehabilitation counselor * Urinary retention protocol-has mccrary catheter. * Regular diet * Isolation precaution for now * VTE prophylaxis with Lovenox * CODE STATUS: Full code. * Length of stay likely > 3 days patient is septic.
[2020-05-08] MEDS: Sodium Chloride 0.9% 1,000 ML IV SCH ×2 (07:51→18:05)
[2020-05-08] MEDS: Sertraline 25 MG Tab PO SCH (08:29)
[2020-05-08] MEDS: Enoxaparin 40 MG/0.4 ML Syringe SUBCUT SCH (08:29)
[2020-05-08] MEDS: Gabapentin 300 MG Cap PO SCH ×2 (08:29→12:35)
[2020-05-08] MEDS: Finasteride 5 MG Tab PO SCH (08:33)
[2020-05-08] MEDS ORDERED: Lisinopril 10 MG Tab PO SCH (09:00)
[2020-05-08] MEDS: Budesonide 0.5 MG/2 ML Neb Susp NEB SCH ×2 (09:16→20:11)
[2020-05-08] MEDS: guaiFENesin/Dextromethorphan 100-10 MG/5 ML Soln 5 ML Cup PO PRN ×2 (11:40→19:50)
[2020-05-08] MEDS: Famotidine 20 MG Tab PO SCH ×2 (13:31→19:59)
[2020-05-08] MEDS: Gabapentin 600 MG Tab PO SCH (19:59)
[2020-05-09] MEDS: Cefepime 2 GM in Premix Bag 1 BAG IV SCH ×3 (01:10→16:21)
[2020-05-09] MEDS: Sodium Chloride 0.9% 1,000 ML IV SCH ×3 (01:51→18:01)
[2020-05-09] MEDS ORDERED: cloNIDine 0.1 MG Tab PO ONE (06:22)
[2020-05-09] MEDS: Budesonide 0.5 MG/2 ML Neb Susp NEB SCH ×2 (08:05→20:40)
[2020-05-09] MEDS: Glycopyrrolate 15.6 MCG Cap.W.Dev Kit of 6 IH SCH ×2 (08:09→20:40)
[2020-05-09] MEDS: Formoterol/Mometasone 100-5 MCG 8.8 GM Inhaler IH SCH ×2 (08:09→20:40)
--- NOTE | 2020-05-09 08:10 | PCM.PN ---
- General Info Date of Service: 05/09/20 Admission Dx/Problem (Free Text): Admission Diagnosis/Problem Admission Diagnosis/Problem Pneumonia Subjective Update: 05/09/20: No significant overnight issues. However he stated, he did not sleep well. Feels a bit better this morning. His WBC is now down to 9.50K. He remains afebrile. His Na and Mg drops down to 128 and 1.7 respectively. He is super hungry for breakfast. 05/08/20: No change in condition. He stated he felt about the same but no new complaints. Has mccrary catheter for urinary incontinence but also has bowel incontinence which he gets it from time to time. His WBC drops down to 12.6K. He is afebrile since admission to the unit. Functional Status: Reports: Pain Controlled, Tolerating Diet, Ambulating, Urinating - Review of Systems General: Reports: Weakness. Denies: Fever, Chills HEENT: Reports: No Symptoms Pulmonary: Reports: Cough Cardiovascular: Reports: No Symptoms Gastrointestinal: Denies: Abdominal Pain, Nausea, Vomiting Genitourinary: Reports: No Symptoms Musculoskeletal: Reports: No Symptoms Skin: Reports: No Symptoms Neurological: Denies: Headache, Syncope, Tingling, Tremors, Gait Disturbance Psychiatric: Denies: Confusion, Depression, Anxiety, Agitation - Patient Data Vitals - Most Recent: Last Vital Signs Temp 36.3 C 05/09/20 04:17 Pulse 116 H 05/08/20 08:00 Resp 20 05/09/20 04:17 BP 161/98 H 05/09/20 04:17 Pulse Ox 98 05/09/20 04:17 Weight - Most Recent: 85.139 kg I&O - Last 24 Hours: Intake & Output 05/08/20 05/09/20 05/09/20 22:59 06:59 14:59 Intake Total 1483 1420 Output Total 1000 1425 Balance 483 -5 Lab Results Last 24 Hours: Laboratory Results - last 24 hr 05/08/20 05/09/20 05/09/20 Range/Units 11:10 06:33 06:33 WBC 9.50 H (4.23-9.07) K/mm3 RBC 3.72 L (4.63-6.08) M/mm3 Hgb 11.0 L D (13.7-17.5) gm/dl Hct 32.3 L (40.1-51.0) % MCV 86.8 (79.0-92.2) fl MCH 29.6 (25.7-32.2) pg MCHC 34.1 (32.2-35.5) g/dl RDW Std Deviation 44.6 H (35.1-43.9) fL Plt Count 136 L (163-337) K/mm3 MPV 9.1 L (9.4-12.3) fl Neut % (Auto) 81.9 H (34.0-67.9) % Lymph % (Auto) 5.4 L (21.8-53.1) % [place] % (Auto) 9.3 (5.3-12.2) % Eos % (Auto) 1.6 (0.8-7.0) Baso % (Auto) 0.1 (0.1-1.2) % Neut # (Auto) 7.79 H (1.78-5.38) K/mm3 Lymph # (Auto) 0.51 L (1.32-3.57) K/mm3 [place] # (Auto) 0.88 H (0.30-0.82) K/mm3 Eos # (Auto) 0.15 (0.04-0.54) K/mm3 Baso # (Auto) 0.01 (0.01-0.08) K/mm3 Manual Slide Review Abnormal smear Sodium 128 L (136-145) mEq/L Potassium 3.8 (3.5-5.1) mEq/L Chloride 96 L (98-107) mEq/L Carbon Dioxide 25 (21-32) mEq/L Anion Gap 10.8 (5-15) BUN 15 (7-18) mg/dL Creatinine 0.8 (0.7-1.3) mg/dL Est Cr Clr Drug Dosing 72.44 mL/min Estimated GFR (MDRD) > 60 (>60) mL/min BUN/Creatinine Ratio 18.8 H (14-18) Glucose 96 (83-115) mg/dL Lactic Acid 1.5 (0.4-2.0) mmol/L Calcium 7.5 L (8.5-10.1) mg/dL Magnesium 1.5 L (1.8-2.4) mg/dl Art Results Last 24 Hours: Microbiology 05/07/20 17:33 Aerobic Blood Culture - Preliminary Blood - Venous - Lab Draw NO GROWTH AFTER 1 DAY Anaerobic Blood Culture - Preliminary NO GROWTH AFTER 1 DAY 05/07/20 17:20 Aerobic Blood Culture - Preliminary Blood - Venous NO GROWTH AFTER 1 DAY Anaerobic Blood Culture - Preliminary NO GROWTH AFTER 1 DAY 05/07/20 19:20 Urine Culture - Preliminary Urine, Clean Catch Med Orders - Current: Current Medications Albuterol (Proventil Neb Soln) 2.5 mg NEB Q2H PRN PRN Reason: Shortness Of Breath/wheezing Albuterol/Ipratropium (Duoneb 3.0-0.5 Mg/3 Ml) 3 ml NEB Q4H PRN PRN Reason: Shortness Of Breath/wheezing Budesonide (Pulmicort) 0.5 mg NEB BID [facility] Last Admin: 05/08/20 20:11 Dose: 0.5 mg Documented by: Enoxaparin Sodium (Lovenox) 40 mg SUBCUT DAILY [facility] Last Admin: 05/08/20 08:29 Dose: 40 mg Documented by: Famotidine (Pepcid) 20 mg PO BID [facility] Last Admin: 05/08/20 19:59 Dose: 20 mg Documented by: Finasteride (Proscar) 5 mg PO DAILY [facility] Last Admin: 05/08/20 08:33 Dose: 5 mg Documented by: Gabapentin (Neurontin) 300 mg PO BID@0900,1200 [facility] Last Admin: 05/08/20 12:35 Dose: 300 mg Documented by: Gabapentin (Neurontin) 600 mg PO BEDTIME [facility] Last Admin: 05/08/20 19:59 Dose: 600 mg Documented by: Glycopyrrolate (Seebri Neohaler) 15.6 mcg IH BID [facility] Guaifenesin/Phenylephrine HCl (Robitussin Dm) 10 ml PO Q4H PRN PRN Reason: Cough Last Admin: 05/08/20 19:50 Dose: 10 ml Documented by: Hydralazine HCl (Apresoline) 10 mg IVPUSH Q4H PRN PRN Reason: Hypertension Cefepime HCl 2 gm/ Premix 50 mls @ 100 mls/hr IV Q8H [facility] Last Admin: 05/09/20 01:10 Dose: 100 mls/hr Documented by: Sodium Chloride (Normal Saline) 1,000 mls @ 125 mls/hr IV ASDIRECTED [facility] Last Admin: 05/09/20 01:51 Dose: 125 mls/hr Documented by: Lisinopril (Prinivil) 10 mg PO DAILY [facility] Last Admin: 05/08/20 08:32 Dose: 10 mg Documented by: Mometasone Furoate/Formoterol Fumar (Dulera 100-5 Mcg) 2 puff IH BID [facility] Ondansetron HCl (Zofran) 4 mg IV Q4H PRN PRN Reason: Nausea/Vomiting Sertraline HCl (Zoloft) 25 mg PO DAILY [facility] Last Admin: 05/08/20 08:29 Dose: 25 mg Documented by: Sodium Chloride (Saline Flush) 10 ml FLUSH ASDIRECTED PRN PRN Reason: Keep Vein Open Last Admin: 05/07/20 17:38 Dose: 10 ml Documented by: Zolpidem Tartrate (Ambien) 5 mg PO BEDTIME PRN PRN Reason: Insomnia Discontinued Medications Hydrocodone Bitart/Acetaminophen ([place] 325-5 Mg) 2 tab PO Q4H PRN PRN Reason: Pain (moderate 4-6) Clonidine HCl (Catapres) 0.1 mg PO ONETIME ONE Stop: 05/09/20 06:23 Sodium Chloride (Normal Saline) 1,000 mls @ 999 mls/hr IV BOLUS ONE Stop: 05/07/20 17:52 Last Admin: 05/07/20 17:13 Dose: 999 mls/hr Documented by: Lactated Ringer's (Ringers, Lactated) 1,000 mls @ 999 mls/hr IV .BOLUS ONE Stop: 05/07/20 20:03 Last Admin: 05/07/20 19:00 Dose: 999 mls/hr Documented by: - Exam Quality Assessment: No: Supplemental Oxygen General: Alert, Oriented, Cooperative, No Acute Distress HEENT: Pupils Equal, Pupils Reactive, EOMI, Mucous Membr. Moist/[place] Neck: Supple Lungs: Normal Respiratory Effort, Decreased Breath Sounds, Rhonchi Cardiovascular: Regular Rate, Regular Rhythm GI/Abdominal Exam: Normal Bowel Sounds, Soft, Non-Tender, No Organomegaly, No Distention, No Abnormal Bruit (Male) Exam: Other (has indwelling mccrary catheter; no suprapubic tenderness) Back Exam: Normal Inspection, Decreased Range of Motion Extremities: Normal Inspection, Normal Range of Motion, Non-Tender, No Pedal Edema, Normal Capillary Refill Peripheral Pulses: 2+: Dorsalis Pedis (L), Dorsalis Pedis (R) Skin: Warm, Dry, Intact Neurological: No New Focal Deficit Psy/Mental Status: Alert, Normal Affect, Normal Mood Sepsis Event Note - Evaluation Sepsis Screening Result: Sepsis Risk - Focused Exam Vital Signs: Vital Signs Temp Resp BP Pulse Ox Pulse Ox 05/09/20 04:17 36.3 C 20 161/98 H 98 05/09/20 00:00 37.1 C 18 157/86 H 94 L 05/08/20 20:11 95 Date Exam was Performed: 05/09/20 Time Exam was Performed: 08:22 - Problem List Review Problem List Initiated/Reviewed/Updated: Yes - My Orders Last 24 Hours: My Active Orders 05/08/20 11:00 CULTURE SPUTUM + SMEAR [RM] Routine 05/08/20 11:01 Incentive Spirometry [RT Incentive Spirometry] [RC] .PRN Dextromethorphan/guaiFENesin [Robitussin DM] 10 ml PO Q4H PRN 05/08/20 11:13 C DIFFICILE PCR W/REFLEX [MOLEC] Routine 05/08/20 13:30 Famotidine [Pepcid] 20 mg PO BID 05/09/20 07:55 Zolpidem [Ambien] 5 mg PO BEDTIME PRN 05/09/20 09:00 Glycopyrrolate [Seebri Neohaler] 15.6 mcg IH BID Mometasone/Formoterol [Dulera 100-5 MCG] 2 puff IH BID 05/10/20 05:11 BMP [BASIC METABOLIC PANEL,BMP] [CHEM] AM CBC WITH AUTO DIFF [HEME] AM MG [MAGNESIUM] [CHEM] AM 05/10/20 09:00 Chest 1V Frontal [CR] Routine 05/11/20 05:11 BMP [BASIC METABOLIC PANEL,BMP] [CHEM] AM CBC WITH AUTO DIFF [HEME] AM MG [MAGNESIUM] [CHEM] AM 05/12/20 05:11 BMP [BASIC METABOLIC PANEL,BMP] [CHEM] AM CBC WITH AUTO DIFF [HEME] AM MG [MAGNESIUM] [CHEM] AM - Plan Plan:: Assessment * 79-year-old male with left sided upper lobe lung cancer not receiving treatment presents with cough, fever, and weakness. Chest x-ray shows possible left-sided pneumonia. Patient was started on cefepime in the emergency department. Encourage to use IS. PRN decongestant/expectorant. * Sepsis 2/2 combined UTI/Post-Obstructive Pneumonia, POA. Meets criteria: fever, tachycardic, tachypneic, leukocytosis with 2 sources. Currently on monotherapy with Cefepime 2 grams IV Q8H. Blood cultures so far no growth in 24 hrs. * UTI with urinary retention. UA shows 5-10 WBCs and patient had urinary retention of greater than 400. Urine culture pending result. Continue IV cefepime. * COPD-patient stopped smoking in 2007. He is currently in a chronic state. He is on multiple inhalers at home and there is question if he has been taking his medications correctly. No acute exacerbation. He is currently on RA sating at 93-97%. * Hypovolemic hyponatremia likely multifactorial. He is on HCTZ and Zoloft both known to cause sodium loss. 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 Na improved to 134 after receiving 2L of NS last night. Continue to hold HCTZ and resume Zoloft. * Elevated liver enzymes with abdominal tenderness -AST 47, ALT 66, total bilirubin 2.0, albumin 3.1, INR less than 0.93. Query hypoperfusion but he was never hypotensive. LA was normal. Will repeat level this morning. Avoid acetaminophen and hold statin if he is on. * Leukocytosis with WBC of 12.60. POA. This is 2/2 underlying above infections. Has no improved to 12.6K, now at 9.6. Continue IV antibiotic. * Pseudo-anemia. Hgb of 12.9. This is hemodilution from volume resuscitation last night. No active bleeding. We will monitor. * Pseudo-thrombocytopenia. Has platelet of 154, now 136. Again, thrombo-dilution for volume resuscitation. * Mild Hypocalcemia. Has Ca of 8.2, now 7.6. This is likely due to inadequate intake. Encourage to patient to eat and drink. * Mild Hyperbilirubinemia, POA. He comes in with a total bilirubin of 2/0, now at 1.9. This is like due to starvation/fasting. We will monitor. Repeat CMP in AM * Hypoalbuminemia, POA. He comes in with an albumin level of 3.1 not 2.3 . Dietitian's consult for low protein state. * Hypertension, POA. Labile. We are holding some of his BP meds. PRN Hydralazine and Clonidine x1. We will continue to monitor. * Diarrhea/bowel incontinence r/o C. Diff. Resolved: * Acute renal injury secondary to prerenal disease. Patient's BUN to creatinine ratio is greater than 30 consistent with hypovolemia. Patient states he has had poor oral intake for the last few days. Given 2 L of IV fluids in the emergency department. Resolved. Chronic: Hypertension, recurrent pneumonia, BPH, peripheral neuropathy, depression, hypothyroidism Plan: * Continue current treatment with IV fluids and antibiotic * Pending blood and urine cultures * Follow CBC, CMP, magnesium, and C-reactive protein * Consult PT/OT, case management, social work nurse * Urinary retention protocol-has mccrary catheter * Regular diet * Replete abnormal e-lytes * VTE prophylaxis with Lovenox * CODE STATUS: Full code * Length of stay likely > 3 days patient is septic.
[2020-05-09] MEDS: Enoxaparin 40 MG/0.4 ML Syringe SUBCUT SCH (08:16)
[2020-05-09] MEDS: Sertraline 25 MG Tab PO SCH (08:17)
[2020-05-09] MEDS: Gabapentin 300 MG Cap PO SCH ×2 (08:17→11:00)
[2020-05-09] MEDS: Famotidine 20 MG Tab PO SCH ×2 (08:18→20:05)
[2020-05-09] MEDS: Finasteride 5 MG Tab PO SCH (08:18)
[2020-05-09] MEDS ORDERED: hydrALAZINE 20 MG/ML SDV IVPUSH PRN (08:20)
[2020-05-09] MEDS: Gabapentin 600 MG Tab PO SCH (20:05)
[2020-05-09] MEDS: Zolpidem 5 MG Tab PO PRN (20:05)
[2020-05-09] MEDS: Acetaminophen/HYDROcodone 325-5 MG Tab PO PRN (20:06)
[2020-05-09] MEDS: guaiFENesin/Dextromethorphan 100-10 MG/5 ML Soln 5 ML Cup PO PRN (20:08)
[2020-05-10] MEDS: Cefepime 2 GM in Premix Bag 1 BAG IV SCH ×3 (00:16→17:11)
[2020-05-10] MEDS: Sodium Chloride 0.9% 1,000 ML IV SCH (01:17)
--- NOTE | 2020-05-10 05:52 | CR ---
Chest: Portable view of the chest was obtained. Comparison: Prior chest x-ray of 05/07/20. Left upper lung mass is noted. This appears stable from previous exam. Slight scarring noted within the right upper lung. Lungs otherwise are clear. Heart size is normal. Bony structures are grossly intact. Impression: 1. Stable chest x-ray as described above. 2. Nothing acute is definitely appreciated. Diagnostic code #9 This report was dictated in MDT I agree with preliminary report from jennifer, finalized on , 8:39 PM [employer] Day[employer] Time
--- NOTE | 2020-05-10 06:13 | CR ---
Chest: Portable view of the chest was obtained. Comparison: Prior chest CT study of 02/11/19 and chest x-ray of . Stable mass within the left upper lung is seen. Slight scarring within the right upper lung. Lungs otherwise are clear. Heart size is normal. Bony structures are grossly intact. Impression: 1. Stable findings as noted above. 2. Nothing acute is appreciated. Diagnostic code #9 This report was dictated in MDT I agree with preliminary report from jennifer, finalized on 05/08/20, 7:51 AM [employer] Day[employer] Time
--- NOTE | 2020-05-10 07:04 | PCM.PN ---
- General Info Date of Service: 05/10/20 Admission Dx/Problem (Free Text): Admission Diagnosis/Problem Admission Diagnosis/Problem Pneumonia Subjective Update: 05/10/20: Slept well last night. He feels much better this morning. However he complained of abdominal pain this morning. He is passing gas but has not had a bowel movement. His appetite is great. His WBC is not back to normal range. He is low on Na, Cl and Mg. He has no other acute issues. 05/09/20: No significant overnight issues. However he stated, he did not sleep well. Feels a bit better this morning. His WBC is now down to 9.50K. He remains afebrile. His Na and Mg drops down to 128 and 1.7 respectively. He is super hungry for breakfast. 05/08/20: No change in condition. He stated he felt about the same but no new complaints. Has mccrary catheter for urinary incontinence but also has bowel incon tinence which he gets it from time to time. His WBC drops down to 12.6K. He is afebrile since admission to the unit. Functional Status: Reports: Pain Controlled, Tolerating Diet, Ambulating, Urinating. Denies: New Symptoms - Review of Systems General: Reports: Weakness (generalized weakness). Denies: Fever, Chills HEENT: Denies: No Symptoms Pulmonary: Reports: Cough (is better). Denies: Shortness of Breath Cardiovascular: Denies: Chest Pain, Dyspnea on Exertion, Lightheadedness Gastrointestinal: Reports: Abdominal Pain (right upper quadrant), Flatus. Denies: Decreased Appetite, Diarrhea, Nausea, Vomiting Genitourinary: Reports: No Symptoms Musculoskeletal: Reports: No Symptoms Skin: Reports: No Symptoms Psychiatric: Denies: Depression, Anxiety, Agitation, Hallucinations - Patient Data Vitals - Most Recent: Last Vital Signs Temp 36.6 C 05/10/20 04:00 Pulse 116 H 05/08/20 08:00 Resp 05/10/20 04:00 BP 147/90 H 05/10/20 04:00 Pulse Ox 97 05/10/20 04:00 Weight - Most Recent: 85.275 kg I&O - Last 24 Hours: Intake & Output 05/09/20 05/10/20 05/10/20 22:59 06:59 14:59 Intake Total 1525 1568 Output Total 374 0895 Balance 755 313 Lab Results Last 24 Hours: Laboratory Results - last 24 hr 05/09/20 05/10/20 05/10/20 Range/Units 06:33 04:15 04:15 WBC 6.86 (4.23-9.07) K/mm3 RBC 3.53 L (4.63-6.08) M/mm3 Hgb 10.4 L (13.7-17.5) gm/dl Hct 30.8 L (40.1-51.0) % MCV 87.3 (79.0-92.2) fl MCH 29.5 (25.7-32.2) pg MCHC 33.8 (32.2-35.5) g/dl RDW Std Deviation 44.0 H (35.1-43.9) fL Plt Count 138 L (163-337) K/mm3 MPV 9.1 L (9.4-12.3) fl Neut % (Auto) 74.1 H (34.0-67.9) % Lymph % (Auto) 7.6 L (21.8-53.1) % [place] % (Auto) 12.7 H (5.3-12.2) % Eos % (Auto) 2.3 (0.8-7.0) Baso % (Auto) 0.1 (0.1-1.2) % Neut # (Auto) 5.08 (1.78-5.38) K/mm3 Lymph # (Auto) 0.52 L (1.32-3.57) K/mm3 [place] # (Auto) 0.87 H (0.30-0.82) K/mm3 Eos # (Auto) 0.16 (0.04-0.54) K/mm3 Baso # (Auto) 0.01 (0.01-0.08) K/mm3 Manual Slide Review Abnormal smear Sodium 128 L 129 L (136-145) mEq/L Potassium 3.8 3.6 (3.5-5.1) mEq/L Chloride 96 L 97 L (98-107) mEq/L Carbon Dioxide 25 25 (21-32) mEq/L Anion Gap 10.8 10.6 (5-15) BUN 15 15 (7-18) mg/dL Creatinine 0.8 0.7 (0.7-1.3) mg/dL Est Cr Clr Drug Dosing 72.44 82.79 mL/min Estimated GFR (MDRD) > 60 > 60 (>60) mL/min BUN/Creatinine Ratio 18.8 H 21.4 H (14-18) Glucose 96 92 (83-115) mg/dL Calcium 7.5 L 7.5 L (8.5-10.1) mg/dL Magnesium 1.5 L 1.6 L (1.8-2.4) mg/dl Total Bilirubin 1.2 H (0.2-1.0) mg/dL AST 26 (15-37) U/L ALT 38 (16-63) U/L Alkaline Phosphatase 54 (46-116) U/L C-Reactive Protein 4.0 H* (<1.0) mg/dL Total Protein 5.2 L (6.4-8.2) g/dl Albumin 1.8 L (3.4-5.0) g/dl Globulin 3.4 gm/dL Albumin/Globulin Ratio 0.5 L (1-2) Art Results Last 24 Hours: Microbiology 05/07/20 17:33 Aerobic Blood Culture - Preliminary Blood - Venous - Lab Draw NO GROWTH AFTER 2 DAYS Anaerobic Blood Culture - Preliminary NO GROWTH AFTER 2 DAYS 05/07/20 17:20 Aerobic Blood Culture - Preliminary Blood - Venous NO GROWTH AFTER 2 DAYS Anaerobic Blood Culture - Preliminary NO GROWTH AFTER 2 DAYS 05/07/20 19:20 Urine Culture - Final Urine, Clean Catch Med Orders - Current: Current Medications Hydrocodone Bitart/Acetaminophen ([place] 325-5 Mg) 1 - 2 tab PO Q6H PRN PRN Reason: Pain Last Admin: 05/09/20 20:06 Dose: 2 tab Documented by: Albuterol (Proventil Neb Soln) 2.5 mg NEB Q2H PRN PRN Reason: Shortness Of Breath/wheezing Albuterol/Ipratropium (Duoneb 3.0-0.5 Mg/3 Ml) 3 ml NEB Q4H PRN PRN Reason: Shortness Of Breath/wheezing Budesonide (Pulmicort) 0.5 mg NEB BID [facility] Last Admin: 05/09/20 20:40 Dose: 0.5 mg Documented by: Enoxaparin Sodium (Lovenox) 40 mg SUBCUT DAILY [facility] Last Admin: 05/09/20 08:16 Dose: 40 mg Documented by: Famotidine (Pepcid) 20 mg PO BID [facility] Last Admin: 05/09/20 20:05 Dose: 20 mg Documented by: Finasteride (Proscar) 5 mg PO DAILY [facility] Last Admin: 05/09/20 08:18 Dose: 5 mg Documented by: Gabapentin (Neurontin) 300 mg PO BID@0900,1200 [facility] Last Admin: 05/09/20 11:00 Dose: 300 mg Documented by: Gabapentin (Neurontin) 600 mg PO BEDTIME [facility] Last Admin: 05/09/20 20:05 Dose: 600 mg Documented by: Glycopyrrolate (Seebri Neohaler) 15.6 mcg IH BID [facility] Last Admin: 05/09/20 20:40 Dose: 1 cap Documented by: Guaifenesin/Phenylephrine HCl (Robitussin Dm) 10 ml PO Q4H PRN PRN Reason: Cough Last Admin: 05/09/20 20:08 Dose: 10 ml Documented by: Hydralazine HCl (Apresoline) 20 mg IVPUSH Q4H PRN PRN Reason: Hypertension Cefepime HCl 2 gm/ Premix 50 mls @ 100 mls/hr IV Q8H [facility] Last Admin: 05/10/20 00:16 Dose: 100 mls/hr Documented by: Sodium Chloride (Normal Saline) 1,000 mls @ 125 mls/hr IV ASDIRECTED [facility] Last Admin: 05/10/20 01:17 Dose: 125 mls/hr Documented by: Lisinopril (Prinivil) 10 mg PO DAILY [facility] Last Admin: 05/08/20 08:32 Dose: 10 mg Documented by: Mometasone Furoate/Formoterol Fumar (Dulera 100-5 Mcg) 2 puff IH BID [facility] Last Admin: 05/09/20 20:40 Dose: 2 puff Documented by: Ondansetron HCl (Zofran) 4 mg IV Q4H PRN PRN Reason: Nausea/Vomiting Sertraline HCl (Zoloft) 25 mg PO DAILY [facility] Last Admin: 05/09/20 08:17 Dose: 25 mg Documented by: Sodium Chloride (Saline Flush) 10 ml FLUSH ASDIRECTED PRN PRN Reason: Keep Vein Open Last Admin: 05/07/20 17:38 Dose: 10 ml Documented by: Zolpidem Tartrate (Ambien) 5 mg PO BEDTIME PRN PRN Reason: Insomnia Last Admin: 05/09/20 20:05 Dose: 5 mg Documented by: Discontinued Medications Hydrocodone Bitart/Acetaminophen ([place] 325-5 Mg) 2 tab PO Q4H PRN PRN Reason: Pain (moderate 4-6) Clonidine HCl (Catapres) 0.1 mg PO ONETIME ONE Stop: 05/09/20 06:23 Last Admin: 05/09/20 08:17 Dose: 0.1 mg Documented by: Hydralazine HCl (Apresoline) 10 mg IVPUSH Q4H PRN PRN Reason: Hypertension Sodium Chloride (Normal Saline) 1,000 mls @ 999 mls/hr IV BOLUS ONE Stop: 05/07/20 17:52 Last Admin: 05/07/20 17:13 Dose: 999 mls/hr Documented by: Lactated Ringer's (Ringers, Lactated) 1,000 mls @ 999 mls/hr IV .BOLUS ONE Stop: 05/07/20 20:03 Last Admin: 05/07/20 19:00 Dose: 999 mls/hr Documented by: - Exam General: Alert, Oriented, Cooperative, No Acute Distress HEENT: Pupils Equal, Pupils Reactive, EOMI, Mucous Membr. Moist/[place] Neck: Supple Lungs: Normal Respiratory Effort, Decreased Breath Sounds, Rhonchi Cardiovascular: Regular Rate, Regular Rhythm GI/Abdominal Exam: Normal Bowel Sounds, Soft, Non-Tender, No Organomegaly, No Distention, No Abnormal Bruit (Male) Exam: Other (indwelling mccrary catheter) Back Exam: Normal Inspection, Decreased Range of Motion Extremities: Normal Inspection, Normal Range of Motion, Non-Tender, No Pedal Edema, Normal Capillary Refill Peripheral Pulses: 2+: Dorsalis Pedis (L), Dorsalis Pedis (R) Skin: Warm, Dry, Intact Neurological: No New Focal Deficit Psy/Mental Status: Alert, Normal Affect, Normal Mood Sepsis Event Note - Evaluation Sepsis Screening Result: Sepsis Risk - Focused Exam Vital Signs: Vital Signs Temp Resp BP Pulse Ox Pulse Ox 05/10/20 04:00 36.6 C 19 147/90 H 97 05/10/20 00:00 36.6 C 15 128/90 96 05/09/20 20:41 95 05/09/20 20:00 37.0 C 18 135/81 98 Date Exam was Performed: 05/10/20 Time Exam was Performed: 17:56 - Problem List Review Problem List Initiated/Reviewed/Updated: Yes - My Orders Last 24 Hours: My Active Orders 05/09/20 07:55 Zolpidem [Ambien] 5 mg PO BEDTIME PRN 05/09/20 08:20 hydrALAZINE [Apresoline] 20 mg IVPUSH Q4H PRN 05/09/20 09:00 Glycopyrrolate [Seebri Neohaler] 15.6 mcg IH BID Mometasone/Formoterol [Dulera 100-5 MCG] 2 puff IH BID 05/09/20 18:52 Acetaminophen/HYDROcodone [[place] 325-5 MG] 1 - 2 tab PO Q6H PRN 05/10/20 09:00 Chest 1V Frontal [CR] Routine 05/11/20 05:11 CBC WITH AUTO DIFF [HEME] AM CMP [COMPREHENSIVE METABOLIC PN,CMP] [CHEM] AM CRP [C-REACTIVE PROTEIN] [CHEM] AM MG [MAGNESIUM] [CHEM] AM 05/12/20 05:11 CBC WITH AUTO DIFF [HEME] AM CMP [COMPREHENSIVE METABOLIC PN,CMP] [CHEM] AM MG [MAGNESIUM] [CHEM] AM - Plan Plan:: Assessment * 79-year-old male with left sided upper lobe lung cancer not receiving treatment presents with cough, fever, and weakness. Chest x-ray shows possible left-sided pneumonia. Patient was started on cefepime in the emergency department. Encourage to use IS. PRN decongestant/expectorant. Repeat CXR today shows stable x-ray. * Sepsis 2/2 combined UTI/Post-Obstructive Pneumonia, POA. Meets criteria: fever, tachycardic, tachypneic, leukocytosis with 2 sources. Currently on monotherapy with Cefepime 2 grams IV Q8H. Blood cultures-no growth in 48 hrs. Urine culture-essentially clean. He is clinically much improved. * UTI with urinary retention. UA shows 5-10 WBCs and patient had urinary retention of greater than 400. Urine culture-no growth of abnormal organism. Continue IV cefepime. * Hypovolemic hyponatremia likely multifactorial. He is on HCTZ and Zoloft both known to cause sodium loss. 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 Na improved to 134 after receiving 2L of NS last night. Now at 129. Continue to hold HCTZ and resume Zoloft. * Pseudo-anemia. Hgb of 12.9. This is hemodilution from volume resuscitation last night. No active bleeding. We will monitor. * Pseudo-thrombocytopenia. Has platelet of 154, now 136. Again, thrombo-dilution for volume resuscitation. * Mild Hypocalcemia. Has Ca of 8.2, now 7.5. This is likely due to inadequate intake. Encourage to patient to eat and drink. Will provide oral supplement. * Mild Hyperbilirubinemia, POA. He comes in with a total bilirubin of 2.0, now at 1.2. This is like due to starvation/fasting. Improving. Repeat CMP in AM * Hypoalbuminemia, POA. He comes in with an albumin level of 3.1, now 1.8. Dietitian's consult for low protein state. * Hypertension, POA. Labile. We are holding some of his BP meds. PRN Hydralazine. Improved. We will continue to monitor. * Diarrhea/bowel incontinence r/o C. Diff. He reports no more diarrhea. * Hypomagnesemia. His Mag is 1.5 today. This is likely due to inadequate intake. Will replete and monitor. * Non-specific abdominal pain. Query due to gas? A little tender on palpation on right upper quadrant. Liver enzymes are normal and he is eating and drinking well. Plan: Consider abdominal x-ray if it does not improve later today. Resolved: * Acute renal injury secondary to prerenal disease. Patient's BUN to creatinine ratio is greater than 30 consistent with hypovolemia. Patient states he has had poor oral intake for the last few days. Given 2 L of IV fluids in the emergency department. Resolved. * Elevated liver enzymes with abdominal tenderness -AST 47, ALT 66, total bilirubin 2.0, albumin 3.1, INR less than 0.93. Query hypoperfusion but he was never hypotensive. LA was normal. Will repeat level this morning. Avoid acetaminophen and hold statin if he is on. Now at normal range. * Leukocytosis with WBC of 12.60. POA. This is 2/2 underlying above infections. Has no improved to 12.6K, now at 9.6. Continue IV antibiotic. Stable: * COPD-patient stopped smoking in 2007. He is currently in a chronic state. He is on multiple inhalers at home and there is question if he has been taking his medications correctly. No acute exacerbation. He is currently on RA sating at 93-97%. * Elevated liver enzymes with abdominal tenderness -AST 47, ALT 66, total bilirubin 2.0, albumin 3.1, INR less than 0.93. Query hypoperfusion but he was never hypotensive. LA was normal. Will repeat level this morning. Avoid acetaminophen and hold statin if he is on. Now at normal range. Chronic: Hypertension, recurrent pneumonia, BPH, peripheral neuropathy, depression, hypothyroidism Plan: * Transfer to [facility] with Tele * Continue current treatment with IV fluids and antibiotic * Follow CBC, CMP, magnesium, and C-reactive protein * Consult PT/OT, case management, social work specialist * Discontinue mccrary catheter if appropriate * Regular diet * Ambulate as tolerated * Replete abnormal e-lytes * VTE prophylaxis with Lovenox * CODE STATUS: Full code * Length of stay > 3 days, patient is septic
[2020-05-10] MEDS: Glycopyrrolate 15.6 MCG Cap.W.Dev Kit of 6 IH SCH ×2 (08:06→20:27)
[2020-05-10] MEDS: Budesonide 0.5 MG/2 ML Neb Susp NEB SCH ×2 (08:06→20:28)
[2020-05-10] MEDS: Formoterol/Mometasone 100-5 MCG 8.8 GM Inhaler IH SCH ×2 (08:06→20:27)
[2020-05-10] MEDS: Gabapentin 300 MG Cap PO SCH ×2 (08:54→11:55)
[2020-05-10] MEDS: Sertraline 25 MG Tab PO SCH (08:54)
[2020-05-10] MEDS: Finasteride 5 MG Tab PO SCH (08:54)
[2020-05-10] MEDS: Famotidine 20 MG Tab PO SCH ×2 (08:54→20:10)
[2020-05-10] MEDS: guaiFENesin/Dextromethorphan 100-10 MG/5 ML Soln 5 ML Cup PO PRN (08:55)
[2020-05-10] MEDS: Enoxaparin 40 MG/0.4 ML Syringe SUBCUT SCH (08:55)
--- NOTE | 2020-05-10 09:16 | CR ---
Chest: Portable view of the chest was obtained. Comparison: Prior chest x-ray of 05/08/20. Stable mass within the left upper chest. Right lung shows no acute parenchymal change. Heart size is normal. Bony structures are grossly intact. Impression: 1. Nothing acute is appreciated. Diagnostic code #2 This report was dictated in MDT
[2020-05-10] MEDS: Acetaminophen/HYDROcodone 325-5 MG Tab PO PRN ×2 (10:36→20:10)
[2020-05-10] MEDS ORDERED: Magnesium Sulfate/Water 2 GM in Premix Bag 1 BAG IV ONE (11:45)
[2020-05-10] MEDS: Calcium Carbonate 600 MG Tab PO SCH (17:19)
[2020-05-10] MEDS: Zolpidem 5 MG Tab PO PRN (20:10)
[2020-05-10] MEDS: Gabapentin 600 MG Tab PO SCH (20:10)
[2020-05-10] MEDS ORDERED: Lisinopril 10 MG Tab PO ONE (22:15)
[2020-05-11] MEDS: Cefepime 2 GM in Premix Bag 1 BAG IV SCH ×3 (00:19→16:27)
[2020-05-11] MEDS: Calcium Carbonate 600 MG Tab PO SCH ×2 (06:15→16:27)
[2020-05-11] MEDS: Sertraline 25 MG Tab PO SCH (08:28)
[2020-05-11] MEDS: Famotidine 20 MG Tab PO SCH ×2 (08:28→20:00)
[2020-05-11] MEDS: Finasteride 5 MG Tab PO SCH (08:28)
[2020-05-11] MEDS: Enoxaparin 40 MG/0.4 ML Syringe SUBCUT SCH (08:28)
[2020-05-11] MEDS: Gabapentin 300 MG Cap PO SCH ×2 (08:28→14:49)
[2020-05-11] MEDS: guaiFENesin/Dextromethorphan 100-10 MG/5 ML Soln 5 ML Cup PO PRN ×2 (08:32→19:39)
[2020-05-11] MEDS: Formoterol/Mometasone 100-5 MCG 8.8 GM Inhaler IH SCH ×2 (08:35→20:56)
[2020-05-11] MEDS: Budesonide 0.5 MG/2 ML Neb Susp NEB SCH ×2 (08:36→20:56)
[2020-05-11] MEDS: Glycopyrrolate 15.6 MCG Cap.W.Dev Kit of 6 IH SCH ×2 (08:36→20:56)
[2020-05-11] MEDS ORDERED: NS + KCl 20mEq/L 1,000 ML IV SCH (08:45)
--- NOTE | 2020-05-11 09:42 | CR ---
Chest: 2 views of the chest were obtained. Comparison: Prior chest x-ray of 05/10/20. Stable masslike density within the left upper chest. No acute parenchymal changes is otherwise seen. Heart size and mediastinum are stable. Bony structures are also stable. Impression: 1. Stable masslike density within the left upper chest. 2. Nothing acute is otherwise seen. Diagnostic code #3 This report was dictated in MDT
[2020-05-11] MEDS ORDERED: Sodium Chloride 0.9% 500 ML IV ONE (09:56)
--- NOTE | 2020-05-11 09:58 | PCM.PN ---
- General Info Date of Service: 05/11/20 Admission Dx/Problem (Free Text): Admission Diagnosis/Problem Admission Diagnosis/Problem Pneumonia Subjective Update: 05/11/20: Patient was given an Ambien 5 mg last night. He has had increased somnolence today and decreased appetite. He 05/10/20: Slept well last night. He feels much better this morning. However he complained of abdominal pain this morning. He is passing gas but has not had a bowel movement. His appetite is great. His WBC is not back to normal range. He is low on Na, Cl and Mg. He has no other acute issues. 05/09/20: No significant overnight issues. However he stated, he did not sleep well. Feels a bit better this morning. His WBC is now down to 9.50K. He remains afebrile. His Na and Mg drops down to 128 and 1.7 respectively. He is super hungry for breakfast. 05/08/20: No change in condition. He stated he felt about the same but no new complaints. Has mccrary catheter for urinary incontinence but also has bowel incontinence which he gets it from time to time. His WBC drops down to 12.6K. He is afebrile since admission to the unit. Functional Status: Reports: Pain Controlled - Review of Systems General: Reports: Fatigue HEENT: Reports: No Symptoms Pulmonary: Reports: No Symptoms Cardiovascular: Reports: No Symptoms Gastrointestinal: Reports: No Symptoms Musculoskeletal: Reports: No Symptoms Skin: Reports: No Symptoms Neurological: Reports: Confusion Psychiatric: Reports: No Symptoms - Patient Data Vitals - Most Recent: Last Vital Signs Temp 98.7 F 05/11/20 08:36 Pulse 116 H 05/08/20 08:00 Resp 20 05/11/20 08:36 BP 163/94 H 05/11/20 08:36 Pulse Ox 96 05/11/20 08:39 Weight - Most Recent: 81.828 kg I&O - Last 24 Hours: Intake & Output 05/10/20 05/11/20 05/11/20 22:59 06:59 14:59 Intake Total 650 40 Output Total 1350 825 150 Balance -524 -025 150 Lab Results Last 24 Hours: Laboratory Results - last 24 hr 05/11/20 05/11/20 05/11/20 Range/Units 04:50 04:50 09:00 WBC 8.27 (4.23-9.07) K/mm3 RBC 3.94 L (4.63-6.08) M/mm3 Hgb 11.7 L (13.7-17.5) gm/dl Hct 34.2 L (40.1-51.0) % MCV 86.8 (79.0-92.2) fl MCH 29.7 (25.7-32.2) pg MCHC 34.2 (32.2-35.5) g/dl RDW Std Deviation 44.8 H (35.1-43.9) fL Plt Count 166 (163-337) K/mm3 MPV 9.2 L (9.4-12.3) fl Neut % (Auto) 78.5 H (34.0-67.9) % Lymph % (Auto) 6.4 L (21.8-53.1) % [place] % (Auto) 12.0 (5.3-12.2) % Eos % (Auto) 1.3 (0.8-7.0) Baso % (Auto) 0.1 (0.1-1.2) % Neut # (Auto) 6.49 H (1.78-5.38) K/mm3 Lymph # (Auto) 0.53 L (1.32-3.57) K/mm3 [place] # (Auto) 0.99 H (0.30-0.82) K/mm3 Eos # (Auto) 0.11 (0.04-0.54) K/mm3 Baso # (Auto) 0.01 (0.01-0.08) K/mm3 Manual Slide Review Abnormal smear Sodium 126 L (136-145) mEq/L Potassium 3.7 (3.5-5.1) mEq/L Chloride 92 L (98-107) mEq/L Carbon Dioxide 29 (21-32) mEq/L Anion Gap 8.7 (5-15) BUN 13 (7-18) mg/dL Creatinine 0.7 (0.7-1.3) mg/dL Est Cr Clr Drug Dosing 82.79 mL/min Estimated GFR (MDRD) > 60 (>60) mL/min BUN/Creatinine Ratio 18.6 H (14-18) Glucose 97 (83-115) mg/dL Lactic Acid 0.7 (0.4-2.0) mmol/L Calcium 8.0 L (8.5-10.1) mg/dL Magnesium 1.8 (1.8-2.4) mg/dl Total Bilirubin 1.0 (0.2-1.0) mg/dL AST 27 (15-37) U/L ALT 39 (16-63) U/L Alkaline Phosphatase 61 (46-116) U/L C-Reactive Protein 6.9 H* (<1.0) mg/dL Total Protein 5.9 L (6.4-8.2) g/dl Albumin 2.1 L (3.4-5.0) g/dl Globulin 3.8 gm/dL Albumin/Globulin Ratio 0.6 L (1-2) Art Results Last 24 Hours: Microbiology 05/07/20 17:33 Aerobic Blood Culture - Preliminary Blood - Venous - Lab Draw NO GROWTH AFTER 3 DAYS Anaerobic Blood Culture - Preliminary NO GROWTH AFTER 3 DAYS 05/07/20 17:20 Aerobic Blood Culture - Preliminary Blood - Venous NO GROWTH AFTER 3 DAYS Anaerobic Blood Culture - Preliminary NO GROWTH AFTER 3 DAYS Med Orders - Current: Current Medications Hydrocodone Bitart/Acetaminophen (Iva 325-5 Mg) 1 - 2 tab PO Q6H PRN PRN Reason: Pain Last Admin: 05/10/20 20:10 Dose: 1 tab Documented by: Albuterol (Proventil Neb Soln) 2.5 mg NEB Q2H PRN PRN Reason: Shortness Of Breath/wheezing Albuterol/Ipratropium (Duoneb 3.0-0.5 Mg/3 Ml) 3 ml NEB Q4H PRN PRN Reason: Shortness Of Breath/wheezing Budesonide (Pulmicort) 0.5 mg NEB BID [facility] Last Admin: 05/11/20 08:36 Dose: 0.5 mg Documented by: Calcium Carbonate/Glycine (Calcium Carbonate) 1,200 [facility] Stop: 05/12/20 07:01 Last Admin: 05/11/20 06:15 Dose: Not Given Documented by: Enoxaparin Sodium (Lovenox) 40 mg SUBCUT DAILY [facility] Last Admin: 05/11/20 08:28 Dose: 40 mg Documented by: Famotidine (Pepcid) 20 mg PO BID [facility] Last Admin: 05/11/20 08:28 Dose: 20 mg Documented by: Finasteride (Proscar) 5 mg PO DAILY [facility] Last Admin: 05/11/20 08:28 Dose: 5 mg Documented by: Gabapentin (Neurontin) 300 mg PO BID@0900,1200 [facility] Last Admin: 05/11/20 08:28 Dose: 300 mg Documented by: Gabapentin (Neurontin) 600 mg PO BEDTIME [facility] Last Admin: 05/10/20 20:10 Dose: 600 mg Documented by: Glycopyrrolate (Seebri Neohaler) 15.6 mcg IH BID [facility] Last Admin: 05/11/20 08:36 Dose: 1 cap Documented by: Guaifenesin/Phenylephrine HCl (Robitussin Dm) 10 ml PO Q4H PRN PRN Reason: Cough Last Admin: 05/11/20 08:32 Dose: 10 ml Documented by: Hydralazine HCl (Apresoline) 20 mg IVPUSH Q4H PRN PRN Reason: Hypertension Cefepime HCl 2 gm/ Premix 50 mls @ 100 mls/hr IV Q8H [facility] Last Admin: 05/11/20 08:28 Dose: 100 mls/hr Documented by: Potassium Chloride/Sodium Chloride (Normal Saline With 20 Meq Kcl) 1,000 mls @ 100 mls/hr IV ASDIRECTED [facility] Stop: 05/11/20 18:44 Sodium Chloride (Normal Saline) 500 mls @ 999 mls/hr IV .BOLUS ONE Stop: 05/11/20 10:26 Lisinopril (Prinivil) 10 mg PO BEDTIME [facility] Mometasone Furoate/Formoterol Fumar (Dulera 100-5 Mcg) 2 puff IH BID [facility] Last Admin: 05/11/20 08:35 Dose: 2 puff Documented by: Ondansetron HCl (Zofran) 4 mg IV Q4H PRN PRN Reason: Nausea/Vomiting Sertraline HCl (Zoloft) 25 mg PO DAILY [facility] Last Admin: 05/11/20 08:28 Dose: 25 mg Documented by: Sodium Chloride (Saline Flush) 10 ml FLUSH ASDIRECTED PRN PRN Reason: Keep Vein Open Last Admin: 05/07/20 17:38 Dose: 10 ml Documented by: Discontinued Medications Hydrocodone Bitart/Acetaminophen (Iva 325-5 Mg) 2 tab PO Q4H PRN PRN Reason: Pain (moderate 4-6) Clonidine HCl (Catapres) 0.1 mg PO ONETIME ONE Stop: 05/09/20 06:23 Last Admin: 05/09/20 08:17 Dose: 0.1 mg Documented by: Hydralazine HCl (Apresoline) 10 mg IVPUSH Q4H PRN PRN Reason: Hypertension Sodium Chloride (Normal Saline) 1,000 mls @ 999 mls/hr IV BOLUS ONE Stop: 05/07/20 17:52 Last Admin: 05/07/20 17:13 Dose: 999 mls/hr Documented by: Lactated Ringer's (Ringers, Lactated) 1,000 mls @ 999 mls/hr IV .BOLUS ONE Stop: 05/07/20 20:03 Last Admin: 05/07/20 19:00 Dose: 999 mls/hr Documented by: Sodium Chloride (Normal Saline) 1,000 mls @ 125 mls/hr IV ASDIRECTED [facility] Last Admin: 05/10/20 01:17 Dose: 125 mls/hr Documented by: Magnesium Sulfate 2 gm/ Premix 50 mls @ 25 mls/hr IV ONETIME ONE Stop: 05/10/20 13:44 Last Admin: 05/10/20 11:51 Dose: 25 mls/hr Documented by: Lisinopril (Prinivil) 10 mg PO DAILY [facility] Last Admin: 05/08/20 08:32 Dose: 10 mg Documented by: Lisinopril (Prinivil) 10 mg PO ONETIME ONE Stop: 05/10/20 22:16 Last Admin: 05/10/20 22:28 Dose: 10 mg Documented by: Zolpidem Tartrate (Ambien) 5 mg PO BEDTIME PRN PRN Reason: Insomnia Last Admin: 05/10/20 20:10 Dose: 5 mg Documented by: - Exam General: Alert, Oriented HEENT: Pupils Equal, Mucous Membr. Moist/[place] Neck: Supple Lungs: Clear to Auscultation, Normal Respiratory Effort Cardiovascular: Regular Rate, Regular Rhythm GI/Abdominal Exam: Normal Bowel Sounds, Soft, Non-Tender, No Organomegaly, No Distention, No Abnormal Bruit, No Mass Extremities: Normal Inspection, Normal Range of Motion, Non-Tender, No Pedal Edema, Normal Capillary Refill Peripheral Pulses: 1+: Posterior Tibial (L), Posterior Tibial (R), Dorsalis Pedis (L), Dorsalis Pedis (R) Skin: Warm, Dry, Intact Neurological: No New Focal Deficit Psy/Mental Status: Other (Falls asleep easily) Sepsis Event Note - Evaluation Sepsis Screening Result: No Definite Risk - Focused Exam Vital Signs: Vital Signs Temp Resp BP BP Pulse Ox Pulse Ox 05/11/20 08:39 96 05/11/20 08:36 98.7 F 20 163/94 H 96 05/11/20 03:18 99.1 F 20 154/86 H 93 L 05/10/20 22:28 185/88 H Date Exam was Performed: 05/11/20 Time Exam was Performed: 15:04 - Problem List Review Problem List Initiated/Reviewed/Updated: Yes - My Orders Last 24 Hours: My Active Orders 05/11/20 05:24 Patient Status [ADT] Routine 05/11/20 08:37 RT Chest Physiotherapy [RC] ASDIRECTED RT Incentive Spirometry [RC] ASDIRECTED 05/11/20 08:45 NS + KCl 20mEq/L [Normal Saline with 20 mEq KCl] 1,000 ml IV ASDIRECTED 05/11/20 09:56 Sodium Chloride 0.9% [Normal Saline] 500 ml IV .BOLUS 05/11/20 21:00 lisinopriL [Prinivil] 10 mg PO BEDTIME - Plan Plan:: Assessment * 79-year-old male with left sided upper lobe lung cancer took a break on treatment since March presents with cough, fever, and weakness. Chest x-ray shows possible left-sided pneumonia. Patient was started on cefepime in the emergency department. Encourage to use IS. PRN decongestant/expectorant. Repeat CXR today shows stable x-ray. * Sepsis 2/2 combined UTI/Post-Obstructive Pneumonia, POA. met criteria: fever, tachycardic, tachypneic, leukocytosis with 2 sources. Currently on monotherapy with Cefepime 2 grams IV Q8H. Blood cultures-no growth in 48 hrs. Urine culture-essentially clean. He is clinically much improved. * UTI with urinary retention. Initial UA showed 5-10 WBCs and patient had urinary retention of greater than 400. Urine culture-no growth of abnormal organism. Continue IV cefepime. -UA today is negative for white cells but positive for RBCs * Hypovolemic hyponatremia likely multifactorial. He is on HCTZ and Zoloft both known to cause sodium loss. 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 Sodium worsening overnight to 126. Continue to hold HCTZ and resume Zoloft. Restart normal saline. * Pseudo-anemia. Hgb of 12.9. This is hemodilution from volume resuscitation last night. No active bleeding. We will monitor. * Pseudo-thrombocytopenia. Has platelet of 154, now 166. Again, thrombo-dilution for volume resuscitation. * Mild Hyperbilirubinemia, POA. He comes in with a total bilirubin of 2.0, now at 1.2. This is like due to starvation/fasting. Improving. Repeat CMP in AM * Hypoalbuminemia, POA. He comes in with an albumin level of 3.1, now 1.8. Dietitian's consult for low protein state. * Hypertension, POA. Labile. We are holding some of his BP meds. PRN Hydralazine. Improved. We will continue to monitor. * Diarrhea/bowel incontinence r/o C. Diff. He reports no more diarrhea. DC C. difficile studies * Non-specific abdominal pain. -Improved - query due to gas? A little tender on palpation on right upper quadrant. Liver enzymes are normal and he is eating and drinking well. Plan: Consider abdominal x-ray if it does not improve later today. * Increased fatigue today. This is likely secondary to residual effects from Ambien. Continue to monitor. Resolved: * Acute renal injury secondary to prerenal disease. Patient's BUN to creatinine ratio is greater than 30 consistent with hypovolemia. Patient states he has had poor oral intake for the last few days. Given 2 L of IV fluids in the emergency department. Resolved. * Elevated liver enzymes with abdominal tenderness -AST 47, ALT 66, total bilirubin 2.0, albumin 3.1, INR less than 0.93. Query hypoperfusion but he was never hypotensive. LA was normal. Will repeat level this morning. Avoid acetaminophen and hold statin if he is on. Now at normal range. * Leukocytosis with WBC of 12.60. POA. This is 2/2 underlying above infections. Has no improved to 12.6K, now at 9.6. Continue IV antibiotic. * Mild Hypocalcemia. Corrected calcium 9.52 * Hypomagnesemia. His Mag is 1.8 today. This is likely due to inadequate intake. Will replete and monitor. Stable: * COPD-patient stopped smoking in 2007. He is currently in a chronic state. He is on multiple inhalers at home and there is question if he has been taking his medications correctly. No acute exacerbation. He is currently on RA sating at 93-97%. * Elevated liver enzymes with abdominal tenderness -AST 47, ALT 66, total bilirubin 2.0, albumin 3.1, INR less than 0.93. Query hypoperfusion but he was never hypotensive. LA was normal. Will repeat level this morning. Avoid acetaminophen and hold statin if he is on. Now at normal range. Chronic: Hypertension, recurrent pneumonia, BPH, peripheral neuropathy, depression, hypothyroidism Plan: * Transfer to [facility] with Tele * Continue current treatment with IV fluids and antibiotic * Follow CBC, CMP, magnesium, and C-reactive protein * Consult PT/OT, case management, social work therapist * Continue Mccrary catheter for close I's and O's * Regular diet * Ambulate as tolerated * Replete abnormal e-lytes * VTE prophylaxis with Lovenox * CODE STATUS: Full code * Length of stay greater than 96 hours secondary to sepsis
[2020-05-11] MEDS: Acetaminophen/HYDROcodone 325-5 MG Tab PO PRN (19:59)
[2020-05-11] MEDS: Lisinopril 10 MG Tab PO SCH (19:59)
[2020-05-11] MEDS: Gabapentin 600 MG Tab PO SCH (20:00)
[2020-05-12] MEDS: Cefepime 2 GM in Premix Bag 1 BAG IV SCH ×2 (01:10→08:56)
[2020-05-12] MEDS: Finasteride 5 MG Tab PO SCH (08:55)
[2020-05-12] MEDS: Sertraline 25 MG Tab PO SCH (08:55)
[2020-05-12] MEDS: Enoxaparin 40 MG/0.4 ML Syringe SUBCUT SCH (08:55)
[2020-05-12] MEDS: Famotidine 20 MG Tab PO SCH ×2 (08:55→20:19)
[2020-05-12] MEDS: Gabapentin 300 MG Cap PO SCH ×2 (08:55→12:00)
[2020-05-12] MEDS: Calcium Carbonate 600 MG Tab PO SCH ×2 (08:56→16:44)
[2020-05-12] MEDS: Budesonide 0.5 MG/2 ML Neb Susp NEB SCH (09:21)
[2020-05-12] MEDS: INCRUSE ELLIPTA INH SCH (09:23)
[2020-05-12] MEDS: Formoterol/Mometasone 100-5 MCG 8.8 GM Inhaler IH SCH ×2 (09:23→20:42)
[2020-05-12] MEDS: Glycopyrrolate 15.6 MCG Cap.W.Dev Kit of 6 IH SCH (12:07)
--- NOTE | 2020-05-12 13:48 | PCM.PN ---
- General Info Date of Service: 05/12/20 Subjective Update: BM yesterday Feeling OK Tolerating diet Reduced appetite - Patient Data Vitals - Most Recent: Last Vital Signs Temp 98.5 F 05/12/20 09:32 Pulse 110 H 05/12/20 09:32 Resp 18 05/12/20 09:32 BP 150/85 H 05/12/20 09:32 Pulse Ox 96 05/12/20 09:32 Weight - Most Recent: 79.787 kg - Exam General: Alert, Oriented, Cooperative, No Acute Distress HEENT: Pupils Equal, Pupils Reactive, Mucous Membr. Moist/[place] Neck: Supple, Trachea Midline Lungs: Decreased Breath Sounds, Crackles, Rales, Rhonchi. No: Rub, Stridor, Wheezing Cardiovascular: Regular Rate, Regular Rhythm. No: Murmurs, Gallops, Rubs GI/Abdominal Exam: Normal Bowel Sounds, Soft, Non-Tender, Distended. No: Guarding, Rigid, Rebound, Tender Extremities: Normal Inspection, Non-Tender, Normal Capillary Refill, Pedal Edema Peripheral Pulses: 2+: Radial (L), Radial (R), Dorsalis Pedis (L), Dorsalis Pedis (R) Skin: Warm, Dry Neurological: No New Focal Deficit Psy/Mental Status: Alert, Normal Affect, Normal Mood Sepsis Event Note - Evaluation Sepsis Screening Result: No Definite Risk - Problem List & Annotations (1) Multifocal pneumonia SNOMED Code(s): 059086000 Code(s): J18.9 - PNEUMONIA, UNSPECIFIED ORGANISM Status: Acute Current Visit: No (2) Non-small cell cancer of left lung SNOMED Code(s): 375194123 Code(s): C34.92 - MALIGNANT NEOPLASM OF UNSP PART OF LEFT BRONCHUS OR LUNG Status: Acute Current Visit: Yes (3) Former smoker SNOMED Code(s): 7350258 Code(s): Z87.891 - PERSONAL HISTORY OF NICOTINE DEPENDENCE Status: Acute Current Visit: Yes (4) Metastatic primary lung cancer SNOMED Code(s): 97274439, 940967570 Code(s): C34.90 - MALIGNANT NEOPLASM OF UNSP PART OF UNSP BRONCHUS OR LUNG Status: Acute Current Visit: Yes (5) Metastasis to lymph nodes Status: Acute Current Visit: Yes (6) Normocytic normochromic anemia SNOMED Code(s): 95259131 Code(s): D64.9 - ANEMIA, UNSPECIFIED Status: Acute Current Visit: Yes (7) Hypoalbuminemia SNOMED Code(s): 638259040 Code(s): E88.09 - OTH DISORDERS OF PLASMA-PROTEIN METABOLISM, NEC Status: Acute Current Visit: Yes (8) Physical deconditioning SNOMED Code(s): 13792590275528 Code(s): R53.81 - OTHER MALAISE Status: Acute Current Visit: Yes (9) Benign prostatic hyperplasia SNOMED Code(s): 075554353 Code(s): N40.0 - BENIGN PROSTATIC HYPERPLASIA WITHOUT LOWER URINRY TRACT SYMP Status: Acute Current Visit: Yes (10) Hypothyroidism SNOMED Code(s): 50504601 Code(s): E03.9 - HYPOTHYROIDISM, UNSPECIFIED Status: Acute Current Visit: Yes (11) HTN (hypertension) SNOMED Code(s): 11882064 Code(s): I10 - ESSENTIAL (PRIMARY) HYPERTENSION Status: Acute Current Visit: No (12) Hyponatremia SNOMED Code(s): 70791264 Code(s): E87.1 - HYPO-OSMOLALITY AND HYPONATREMIA Status: Acute Current Visit: No (13) Acute urinary retention SNOMED Code(s): 259990468 Code(s): R33.8 - OTHER RETENTION OF URINE Status: Acute Current Visit: Yes - Problem List Review Problem List Initiated/Reviewed/Updated: Yes - Assessment Assessment:: 05/07/2020 History of lung cancer initially treated w/chemotherapy 2017 --> immunotherapy early 2019 Comes to ED via EMS sent by son for cough, fever, and chills; stating he feels terrible As per patient cough and SOB is at baseline Decreased oral intake for couple of days Unable to void urine--> bladder scan 400cc--> Sapp catheter placed COVID in ED negative Initial vital signs HR 113, RR 17, BP 127/89, SatO2 92% on RA, Temp 100.7 WBC 16.57, hemoglobin 15.1, platelets 196. 86% neutrophils 0% bands. Elevated T bili. 2/2 poor oral intake Lactic acid 1.2 [place]-cultured and started on cefepime, given 2L bolus CXR read with parenchymal density left upper chest with mildly increased haziness on left lung JACE 2.2 volume depletion 05/08/20 No change in condition Feels the same, no new complaints His WBC dropped down to 12.6K. Afebrile since admission Meets criteria for sepsis He is afebrile since admission to ICU RA sating at 93-97%. Albumin level of 3.1 --> Dietitian's consult for low protein state started on magic cup, high protein custard and Ensure Complaining of chronic bowel incontinence and diarrhea--> r/o C. Diff. JACE resolved Continue Sapp catheter 05/09/20 No significant overnight issues. He did not sleep well but feels a bit better this morning. WBC is now down to 9.50K. Remains afebrile Na and Mg drops down to 128 and 1.7 respectively. He is super hungry for breakfast. Encourage to use IS. PRN decongestant/expectorant. Blood cultures so far no growth in 24 hrs. Hypovolemic hyponatremia likely multifactorial. - He is on HCTZ and Zoloft both known to cause sodium loss. 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 - Na improved to 134 after receiving 2L of NS last night. Continue to hold HCTZ and resume Zoloft. 05/10/20 Slept well last night. He feels much better this morning. Abdominal pain this morning--> No BM--> consider abdominal x-ray if it does not improve later today. Repeat CXR today stable Urine culture negative Na improved to 134--> Now at 129. Continue to hold HCTZ and resume Zoloft. Ca 7.5--> start oral supplement. Mg 1.5 today-->replete LFTs normal Transfer to [facility] with Tele Continue current treatment with IV fluids and antibiotic 05/11/20 Given Ambien 5 mg last night--> has had increased somnolence today and decreased appetite No growth on blood cultures No diarrhea, discontinued c. 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 COPD, stable Former smoker - Discontinue Cefepime - Incentive spirometry - Discontinue scheduled nebulizations - PRN nebulizations, guaifenesin, - Goal O2Sat > 88% - [place] 5 PRN - Continue Dulera Hypertension, controlled - Continue Lisinopril - PRN Hydralazine Physical deconditioning Hypoalbuminemia - PT/OT recommending SNF placement Acute urinary retention Benign prostatic hyperplasia - Continue Sapp catheter - Discontinue Finasteride - Urology appointment as an outpatient Acute confusional state Peripheral Neuropathy - Hold Gabapentin PROPHYLAXIS DVT- Lovenox GI- Home Famotidine CODE STATUS: FULL CODE DISPOSITION: Patient admitted for SOB and pneumonia, started on antibiotics and completed treatment. Evaluated by physical therapy who recommended SNF placement, pending acceptance.
[2020-05-12] MEDS: Benzonatate 100 MG Cap PO SCH (20:19)
[2020-05-12] MEDS: Sodium Chloride 0.9% 10 ML Syringe FLUSH PRN (20:20)
[2020-05-12] MEDS: Lisinopril 10 MG Tab PO SCH (20:20)
[2020-05-12] MEDS: guaiFENesin/Dextromethorphan 100-10 MG/5 ML Soln 5 ML Cup PO PRN (22:44)
[2020-05-13] MEDS: guaiFENesin/Dextromethorphan 100-10 MG/5 ML Soln 5 ML Cup PO PRN (03:56)
--- NOTE | 2020-05-13 07:53 | PCM.DCSUM1 ---
Discharge Summary - Hospital Course HPI Initial Comments: 79-year-old male with history of lung cancer initially treated in 2018 with chemotherapy and radiation and then earlier this year on immunotherapy presents to the emergency department with complaints of cough, fever, and chills. Unfortunately patient is a poor historian so much of the history was obtained through the emergency department notes. He does state he feels "terrible". He states his cough has not really changed over the last week and and is at his normal shortness of breath. His youngest son sent him to the emergency department via EMS secondary to increasing fatigue and weakness. Patient states he was not eating properly for the last few days. Since transfer to the ICU patient has constantly complained of needing to urinate, but unable to do so. Bladder scan was greater than 400. UA done in the emergency department did show 5-10 WBCs. He denies any abdominal pain, vomiting, change in bowel habits, hematochezia or melena. COVID testing in the emergency department was negative. Initial vital signs temperature in the emergency department was 100.7. Heart rate 113, respiratory rate of 17, blood pressure 127/89, and pulse ox was 92 to 93% room air. Labs: WBC 16.57, hemoglobin 15.1, platelets 196. 86% neutrophils 0% bands. Sodium 132, potassium 4.4, normal anion gap 10.4, BUN 38, creatinine 1.2, estimated GFR 58, BUN to creatinine ratio 31.7, total bilirubin 2.0, AST 47, ALT 66, alkaline phosphatase 84, C-reactive protein 10.6, Lactic acid 1.2. Patient was started on cefepime 2 g every 8 hours in the emergency department. Blood cultures and urine culture was collected. He was given 2 L IV fluid bolus. Chest x-ray was unavailable to me on our system, but it was read by Dr. Zazueta as parenchymal density left upper chest with mildly increased haziness Left lung below that difficult to exclude pneumonia. Diagnosis: Stroke: No - Discharge Data Discharge Date: 05/13/20 Discharge Disposition: Home, Self-Care 01 Condition: Good - Referral to Home Health Primary Care Physician: Greg Canales MD - Discharge Diagnosis/Problem(s) (1) Multifocal pneumonia SNOMED Code(s): 705550177 ICD Code: J18.9 - PNEUMONIA, UNSPECIFIED ORGANISM Status: Acute Current Visit: No (2) Non-small cell cancer of left lung SNOMED Code(s): 063065892 ICD Code: C34.92 - MALIGNANT NEOPLASM OF UNSP PART OF LEFT BRONCHUS OR LUNG Status: Acute Current Visit: Yes (3) Former smoker SNOMED Code(s): 8680843 ICD Code: Z87.891 - PERSONAL HISTORY OF NICOTINE DEPENDENCE Status: Acute Current Visit: Yes (4) Metastatic primary lung cancer SNOMED Code(s): 05708066, 923271529 ICD Code: C34.90 - MALIGNANT NEOPLASM OF UNSP PART OF UNSP BRONCHUS OR LUNG Status: Acute Current Visit: Yes (5) Metastasis to lymph nodes Status: Acute Current Visit: Yes (6) Normocytic normochromic anemia SNOMED Code(s): 16286491 ICD Code: D64.9 - ANEMIA, UNSPECIFIED Status: Acute Current Visit: Yes (7) Hypoalbuminemia SNOMED Code(s): 908872729 ICD Code: E88.09 - OTH DISORDERS OF PLASMA-PROTEIN METABOLISM, NEC Status: Acute Current Visit: Yes (8) Physical deconditioning SNOMED Code(s): 94119129181625 ICD Code: R53.81 - OTHER MALAISE Status: Acute Current Visit: Yes (9) Benign prostatic hyperplasia SNOMED Code(s): 731266837 ICD Code: N40.0 - BENIGN PROSTATIC HYPERPLASIA WITHOUT LOWER URINRY TRACT SYMP Status: Acute Current Visit: Yes (10) Hypothyroidism SNOMED Code(s): 99939969 ICD Code: E03.9 - HYPOTHYROIDISM, UNSPECIFIED Status: Acute Current Visit: Yes (11) HTN (hypertension) SNOMED Code(s): 36629761 ICD Code: I10 - ESSENTIAL (PRIMARY) HYPERTENSION Status: Acute Current Visit: No (12) Hyponatremia SNOMED Code(s): 19555338 ICD Code: E87.1 - HYPO-OSMOLALITY AND HYPONATREMIA Status: Acute Current Visit: No (13) Acute urinary retention SNOMED Code(s): 653982927 ICD Code: R33.8 - OTHER RETENTION OF URINE Status: Acute Current Visit: Yes - Patient Summary/Data Consults: Consultations 05/07/20 21:04 Consult to Case Management/Elevator Constructor Hydraulic [CONS] Routine Consult to Cart Driver [CONS] Routine OT Evaluation and Treatment [CONS] Routine PT Evaluation and Treatment [CONS] Routine Hospital Course: 05/07/2020 History of lung cancer initially treated w/chemotherapy 2017 --> immunotherapy early 2019 Comes to ED via EMS sent by son for cough, fever, and chills; stating he feels terrible As per patient cough and SOB is at baseline Decreased oral intake for couple of days Unable to void urine--> bladder scan 400cc--> Sapp catheter placed COVID in ED negative Initial vital signs HR 113, RR 17, BP 127/89, SatO2 92% on RA, Temp 100.7 WBC 16.57, hemoglobin 15.1, platelets 196. 86% neutrophils 0% bands. Elevated T bili. 2/2 poor oral intake Lactic acid 1.2 Spencer-cultured and started on cefepime, given 2L bolus CXR read with parenchymal density left upper chest with mildly increased haziness on left lung JACE 2.2 volume depletion 05/08/20 No change in condition Feels the same, no new complaints His WBC dropped down to 12.6K. Afebrile since admission Meets criteria for sepsis He is afebrile since admission to ICU RA sating at 93-97%. Albumin level of 3.1 --> Dietitian's consult for low protein state started on magic cup, high protein custard and Ensure Complaining of chronic bowel incontinence and diarrhea--> r/o C. Diff. JACE resolved Continue Sapp catheter 05/09/20 No significant overnight issues. He did not sleep well but feels a bit better this morning. WBC is now down to 9.50K. Remains afebrile Na and Mg drops down to 128 and 1.7 respectively. He is super hungry for breakfast. Encourage to use IS. PRN decongestant/expectorant. Blood cultures so far no growth in 24 hrs. Hypovolemic hyponatremia likely multifactorial. - He is on HCTZ and Zoloft both known to cause sodium loss. 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 - Na improved to 134 after receiving 2L of NS last night. Continue to hold HCTZ and resume Zoloft. 05/10/20 Slept well last night. He feels much better this morning. Abdominal pain this morning--> No BM--> consider abdominal x-ray if it does not improve later today. Repeat CXR today stable Urine culture negative Na improved to 134--> Now at 129. Continue to hold HCTZ and resume Zoloft. Ca 7.5--> start oral supplement. Mg 1.5 today-->replete LFTs normal Transfer to [facility] with Tele Continue current treatment with IV fluids and antibiotic 05/11/20 Given Ambien 5 mg last night--> has had increased somnolence today and decreased appetite No growth on blood cultures No diarrhea, discontinued c. diff studies Mg 1.8 up from 1.5 BM today Decreased oral intake BP trend 132-165/77-94 Tmax 99.1 HR trend 90-107 I/Os: UO- 3,575, 24h -1,864, admit -2,017 Got confused after gabapentin 05/12/20 Na up from 126 to [address] [facility] Blood cultures negative x 4d Urine culture finalized negative 05/13/20 BM today - Patient Instructions Diet, Other: Magic cup- breakfast, Ensure- lunch and high protein custard-dinner Activity: As Tolerated - Discharge Plan *PRESCRIPTION DRUG MONITORING PROGRAM REVIEWED*: Not Applicable *COPY OF PRESCRIPTION DRUG MONITORING REPORT IN PATIENT CARI: Not Applicable Prescriptions/Med Rec: Benzonatate [Tessalon Perle] 100 mg PO TID #90 capsule Home Medications: Home Meds Albuterol Sulfate [Albuterol Sulfate Hfa] 1 inh INH Q6H PRN 02/07/19 [History] Fish Oil/[place]-3 Fatty Acids [Fish Oil 1,000 MG] 1,000 mg PO DAILY 02/07/19 [History] Gabapentin [Neurontin] 300 mg PO TID 02/07/19 [History] Hydrocodone/Acetaminophen [Hydrocodone-Acetamin 5-325 mg] 1 - 2 tab PO Q6H PRN 02/07/19 [History] Omeprazole Magnesium [Prilosec Otc] 20 mg PO BID 02/07/19 [History] Sertraline [Zoloft] 25 mg PO DAILY 02/07/19 [History] Umeclidinium [place] [Incruse Ellipta*] 62.5 mcg IH DAILY 02/08/19 [History] Cartilage/Collagen/Bor/Hyalur [Joint Health Tablet] 1 tab PO DAILY 05/07/20 [History] Cod Liver Oil 5 ml PO DAILY 05/07/20 [History] Fluticasone/Vilanterol [Breo Ellipta 100-25 MCG Inhalation Kit] 1 cap INH DAILY 05/07/20 [History] Gabapentin [Neurontin] 600 mg PO BEDTIME 05/07/20 [History] Lidocaine 4% [LMX 4] 1 gm TOP TID PRN 05/07/20 [History] Lisinopril/Hydrochlorothiazide [Lisinopril-HCTZ 10-12.5 MG] 1 tab PO DAILY 05/07/20 [History] Benzonatate [Tessalon Perle] 100 mg PO TID #90 capsule 05/13/20 [Rx] Oxygen Therapy Mode: Room Air Forms: ED Department Discharge Referrals: Rico Finnegan [Other] - 06/03/20 11:30 am Greg Canales MD [Primary Care Provider] - - Discharge Summary/Plan Comment DC Time >30 min.: Yes - General Info Date of Service: 05/13/20 Subjective Update: Feels OK Tolerated diet No complaints - Patient Data Vitals - Most Recent: Last Vital Signs Temp 97.9 F 05/13/20 04:00 Pulse 110 H 05/12/20 09:32 Resp 22 H 05/13/20 04:00 BP 155/88 H 05/13/20 04:00 Pulse Ox 95 05/13/20 04:00 Weight - Most Recent: 79.152 kg - Exam General: Reports: Alert, Oriented, Cooperative, No Acute Distress HEENT: Reports: Pupils Equal, Pupils Reactive, EOMI, Mucous Membr. Moist/[place] Neck: Reports: Supple, Trachea Midline, No JVD, No Thyromegaly Lungs: Reports: Normal Respiratory Effort, Crackles, Rales, Rhonchi. Denies: Rub, Stridor, Wheezing Cardiovascular: Reports: Regular Rate, Regular Rhythm. Denies: Murmurs, Gallops, Rubs GI/Abdominal Exam: Normal Bowel Sounds, Soft, Non-Tender, Distended. No: Guarding, Rigid, Rebound Extremities: Normal Inspection, Normal Range of Motion, Non-Tender, No Pedal Edema, Normal Capillary Refill Skin: Reports: Warm, Dry Neurological: Reports: No New Focal Deficit
[2020-05-13] MEDS: Formoterol/Mometasone 100-5 MCG 8.8 GM Inhaler IH SCH (08:04)
[2020-05-13] MEDS: INCRUSE ELLIPTA INH SCH (08:05)
[2020-05-13] MEDS: Enoxaparin 40 MG/0.4 ML Syringe SUBCUT SCH (08:29)
[2020-05-13] MEDS: Sertraline 25 MG Tab PO SCH (08:29)
[2020-05-13] MEDS: Famotidine 20 MG Tab PO SCH (08:29)
[2020-05-13] MEDS: Benzonatate 100 MG Cap PO SCH (08:29)
== END 2020-05-13 11:00 | DRG 871 ==
LOC: JD.ED 16:13 → JD.ICU 19:40
PROVIDERS: ADMIT Family Medicine; ATTEND Family Medicine
DX: J18.9 Pneumonia, unspecified organism (principal); A41.9 Sepsis, unspecified organism; J18.8 Other pneumonia, unspecified organism; Z85.118 Personal history of other malignant neoplasm of bronchus and lung; Z92.21 Personal history of antineoplastic chemotherapy; Z92.3 Personal history of irradiation; J44.9 Chronic obstructive pulmonary disease, unspecified; C34.92 Malignant neoplasm of unspecified part of left bronchus or lung; C77.9 Secondary and unspecified malignant neoplasm of lymph node, unspecified; N17.9 Acute kidney failure, unspecified; E22.2 Syndrome of inappropriate secretion of antidiuretic hormone; J44.0 Chronic obstructive pulmonary disease with (acute) lower respiratory infection; Z87.01 Personal history of pneumonia (recurrent); N40.0 Benign prostatic hyperplasia without lower urinary tract symptoms; N39.0 Urinary tract infection, site not specified; H54.7 Unspecified visual loss; H91.90 Unspecified hearing loss, unspecified ear; Z20.828 Contact with and (suspected) exposure to other viral communicable diseases; E88.09 Other disorders of plasma-protein metabolism, not elsewhere classified; R53.81 Other malaise; D64.9 Anemia, unspecified; R33.8 Other retention of urine; N40.1 Benign prostatic hyperplasia with lower urinary tract symptoms; E86.9 Volume depletion, unspecified; R19.7 Diarrhea, unspecified; T50.2X5A Adverse effect of carbonic-anhydrase inhibitors, benzothiadiazides and other diuretics, initial encounter; T43.225A Adverse effect of selective serotonin reuptake inhibitors, initial encounter; I10 Essential (primary) hypertension; K21.9 Gastro-esophageal reflux disease without esophagitis; G62.9 Polyneuropathy, unspecified; F32.9 Major depressive disorder, single episode, unspecified; E03.9 Hypothyroidism, unspecified; E83.51 Hypocalcemia; D69.6 Thrombocytopenia, unspecified; E80.6 Other disorders of bilirubin metabolism; E83.42 Hypomagnesemia; R10.9 Unspecified abdominal pain; Z87.891 Personal history of nicotine dependence; Z88.1 Allergy status to other antibiotic agents; Z88.8 Allergy status to other drugs, medicaments and biological substances; Z79.899 Other long term (current) drug therapy; Z85.828 Personal history of other malignant neoplasm of skin
CPT/HCPCS: 36415; 71045; 80053; 81001; 83605; 85007; 85027; 85610; 86140; 86738; 87040 ×2; 87086; 96365; 99285; J0692; J7030; J7120; U0002; 51701; 51702; 51798; 71046; 71046-26; 80048; 83735; 83930; 83935; 84300; 84443; 85025; 94640; 94667; 94668; 97116-GP; 97162-GP; 97165-GO; 97530-GO; 97530-GP; 99284; A9270-GY; J1650; J3475; J3480

== ENCOUNTER 2020-05-15 16:26 | Inpatient (IN) | payer MEDICARE, OTHER ==
--- NOTE | 2020-05-15 16:44 | EDM.PDOC ---
ED HPI GENERAL MEDICAL PROBLEM - General Chief Complaint: Possible Sepsis Stated Complaint: [facility] Time Seen by Provider: 05/15/20 16:34 - History of Present Illness INITIAL COMMENTS - FREE TEXT/NARRATIVE: 79-year-old returns to the emergency room with decreased level of consciousness thought to have a fever. He was discharged from here on after course of treatment for pneumonia and urinary tract infection. Upon arrival here he is hypotensive and tachycardic rectal temp of 99 6. It is unclear to me what his appetite has been doing with his been eating and drinking. But he is not answering questions here. He was hypoxic when EMS arrived and [facility]. Treatments CORPORATE PLANNER: Reports: IV/IO - Related Data Allergies Allergy/AdvReac Type Severity Reaction Status Date / Time levofloxacin Allergy Severe Cannot Verified 05/15/20 16:35 Remember tamsulosin [From Flomax] AdvReac Severe Breast Verified 05/15/20 16:35 Tenderness Home Meds: Home Meds Albuterol Sulfate [Albuterol Sulfate Hfa] 1 inh INH Q6H PRN 02/07/19 [History] Fish Oil/[place]-3 Fatty Acids [Fish Oil 1,000 MG] 1,000 mg PO DAILY 02/07/19 [History] Gabapentin [Neurontin] 300 mg PO TID 02/07/19 [History] Hydrocodone/Acetaminophen [Hydrocodone-Acetamin 5-325 mg] 1 - 2 tab PO Q6H PRN 02/07/19 [History] Omeprazole Magnesium [Prilosec Otc] 20 mg PO BID 02/07/19 [History] Sertraline [Zoloft] 25 mg PO DAILY 02/07/19 [History] Umeclidinium [place] [Incruse Ellipta*] 62.5 mcg IH DAILY 02/08/19 [History] Cartilage/Collagen/Bor/Hyalur [Joint Health Tablet] 1 tab PO DAILY 05/07/20 [History] Cod Liver Oil 5 ml PO DAILY 05/07/20 [History] Fluticasone/Vilanterol [Breo Ellipta 100-25 MCG Inhalation Kit] 1 cap INH DAILY 05/07/20 [History] Gabapentin [Neurontin] 600 mg PO BEDTIME 05/07/20 [History] Lidocaine 4% [LMX 4] 1 gm TOP TID PRN 05/07/20 [History] Lisinopril/Hydrochlorothiazide [Lisinopril-HCTZ 10-12.5 MG] 1 tab PO DAILY 05/07/20 [History] Benzonatate [Tessalon Perle] 100 mg PO TID #90 capsule 05/13/20 [Rx] Past Medical History HEENT History: Reports: Hard of Hearing, Impaired Vision Cardiovascular History: Reports: Hypertension Respiratory History: Reports: Pneumonia, Recurrent, Other (See Below) Other Respiratory History: lung cancer Gastrointestinal History: Reports: GERD Other Gastrointestinal History: EGD in 4502-7723 Genitourinary History: Reports: BPH Musculoskeletal History: Reports: None 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, Peripheral Psychiatric History: Reports: None, Depression Endocrine/Metabolic History: Reports: Hypothyroidism Hematologic History: Reports: Other (See Below) Other Immunologic History: chemo induced neuropenia Oncologic (Cancer) History: Reports: Lung Other Oncologic History: Lung cancer 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 Other Dermatologic History: skin cancer on face and head- Dr Sexton in [place] - Infectious Disease History Infectious Disease History: Reports: None - Past Surgical History HEENT Surgical History: Reports: None Cardiovascular Surgical History: Reports: None Respiratory Surgical History: Reports: Lung Biopsies Other Respiratory Surgeries/Procedures: Bipopsy March 08 GI Surgical History: Reports: None Male Surgical History: Reports: None Endocrine Surgical History: Reports: None Neurological Surgical History: Reports: None Musculoskeletal Surgical History: Reports: None Oncologic Surgical History: Reports: None Social & Family History - Family History Family Medical History: Noncontributory - Caffeine Use Caffeine Use: Reports: Soda - Living Situation & Occupation Living situation: Reports: Single Occupation: Retired ED ROS GENERAL - Review of Systems Review Of Systems: See Below Reason Not Obtained: Unable to obtain ED EXAM, GENERAL - Physical Exam Exam: See Below Exam Limited By: Other (Unresponsive) General Appearance: Lethargic Eye Exam: Bilateral Eye: PERRL Ears: Normal External Exam, Normal Canal, Hearing Grossly Normal, Normal TMs, Other (Wax in the external canal on the left side) Nose: Normal Inspection, Normal Mucosa, No Blood Throat/Mouth: Normal Inspection, Normal Lips, Normal Gums, Normal Oropharynx, Normal Voice, No Airway Compromise, Other (Dry mucosa) Head: Atraumatic, Normocephalic Neck: Normal Inspection, Supple, Non-Tender, Full Range of Motion. No: Lymphadenopathy (L), Lymphadenopathy (R) Respiratory/Chest: Other (Rhonchi throughout all lung wong) Cardiovascular: Regular Rate, Rhythm, No Edema, Tachycardia (Just below 120) GI/Abdominal: Normal Bowel Sounds, Soft Extremities: Normal Inspection, No Pedal Edema Neurological: Unresponsive Skin Exam: No Rash Lymphatic: No Adenopathy EKG INTERPRETATION EKG Date: 05/15/20 Rhythm: Other Rate (Beats/Min): 115 [place]: LAD-Left [place]orest Deviation P-Wave: Present QRS: Normal ST-T: Other (Nonspecific changes most likely related to the rate) QT: Normal Comparison: No Change EKG Interpretation Comments: Normal EKG nonischemic Course - Vital Signs Last Recorded V/S: Last Vital Signs Temp 37.7 C 05/15/20 17:50 Pulse 108 H 05/15/20 17:50 Resp 22 H 05/15/20 17:50 BP 121/69 05/15/20 17:50 Pulse Ox 93 L 05/15/20 17:50 - Orders/Labs/Meds Orders: Active Orders 24 hr Category Date Time Status Patient Status [ADT] Routine ADT 05/15/20 19:48 Active EKG Documentation Completion [RC] STAT Care 05/15/20 16:36 Active Oxygen Therapy [RC] PRN Care 05/15/20 19:48 Active RT Suction Artificial Airway [RC] ASDIRECTED Care 05/15/20 19:48 Active VTE/DVT Education [RC] PER UNIT ROUTINE Care 05/15/20 19:48 Active Vital Signs [RC] Q4H Care 05/15/20 19:48 Active Regular Diet [DIET] Diet 05/15/20 Breakfast Active CORONAVIRUS COVID-19 ASH [MOLEC] Stat Lab 05/15/20 10:17 Received CULTURE BLOOD [BC] Stat Lab 05/15/20 17:00 Received CULTURE BLOOD [BC] Stat Lab 05/15/20 17:05 Received Acetaminophen [Tylenol] Med 05/15/20 19:48 Active 650 mg PO Q4H PRN Albuterol [Proventil Neb Soln] Med 05/15/20 19:48 Active 2.5 mg NEB Q15M PRN Atropine 1% [Atropine 1% Ophth Soln] Med 05/15/20 19:48 Active 0 ml SL Q1H PRN Carboxymethylcellulose Sodium [Refresh Liquigel 1%] Med 05/15/20 19:48 Active 1 - 2 ml EYEBOTH QID PRN Haloperidol Lactate [Haldol] Med 05/15/20 19:48 Active 0.5 mg IVPUSH Q1H PRN LORazepam [Ativan] Med 05/15/20 19:48 Active 0.5 mg IVPUSH Q15M PRN Lactoperoxi/Gluc Oxid/Pot Thio [Biotene Oralbalance Gel Med 05/15/20 19:48 Active ] 0 gm MUCMEM ASDIRECTED PRN Metoclopramide [Reglan] Med 05/15/20 19:48 Active 10 mg IVPUSH Q6H PRN Metoclopramide [Reglan] Med 05/15/20 19:48 Active 10 mg PO Q6H PRN Morphine Med 05/15/20 19:48 Active 1 mg IVPUSH Q30M PRN Ondansetron [Zofran ODT] Med 05/15/20 19:48 Active 4 mg PO Q8H PRN Ondansetron [Zofran] Med 05/15/20 19:48 Active 4 mg IVPUSH Q8H PRN Remove Patch Med 05/18/20 20:30 Active 1 ea TRDERM Q72H Scopolamine [Transderm-Scop] Med 05/15/20 19:48 Active 1.5 mg TRDERM Q72H PRN Blood Culture x2 Reflex Set [OM.PC] Stat Oth 05/15/20 16:36 Ordered Resuscitation Status Routine Resus Stat 05/15/20 19:48 Ordered Medication Orders Acetaminophen (Tylenol) 650 mg PO Q4H PRN PRN Reason: Pain/Fever Albuterol (Proventil Neb Soln) 2.5 mg NEB Q15M PRN PRN Reason: Shortness of Breath Artificial Tears (Refresh Liquigel 1%) 1 - 2 ml EYEBOTH QID PRN; Protocol PRN Reason: Dry Eyes Atropine Sulfate (Atropine 1% Ophth Soln) 0 ml SL Q1H PRN PRN Reason: Resp. secretions or congestion Glucose Oxid/Lactoperoxid/Muramidas (Biotene Oralbalance Gel) 0 gm MUCMEM ASDIRECTED PRN PRN Reason: dry mouth Haloperidol Lactate (Haldol) 0.5 mg IVPUSH Q1H PRN PRN Reason: delirium or restlessness Lorazepam (Ativan) 0.5 mg IVPUSH Q15M PRN PRN Reason: Anxiety Metoclopramide HCl (Reglan) 10 mg PO Q6H PRN PRN Reason: Nausea Metoclopramide HCl (Reglan) 10 mg IVPUSH Q6H PRN PRN Reason: Nausea Miscellaneous Information (Remove Patch) 1 ea TRDERM Q72H MANUEL Morphine Sulfate (Morphine) 1 mg IVPUSH Q30M PRN PRN Reason: Pain or Shortness of breath Ondansetron HCl (Zofran Odt) 4 mg PO Q8H PRN PRN Reason: Nausea Ondansetron HCl (Zofran) 4 mg IVPUSH Q8H PRN PRN Reason: Nausea Scopolamine (Transderm-Scop) 1.5 mg TRDERM Q72H PRN PRN Reason: Secretions Labs: Laboratory Tests 05/15/20 05/15/20 05/15/20 Range/Units 16:36 17:00 17:00 WBC 12.11 H (4.23-9.07) K/mm3 RBC 3.97 L (4.63-6.08) M/mm3 Hgb 11.8 L (13.7-17.5) gm/dl Hct 34.0 L (40.1-51.0) % MCV 85.6 (79.0-92.2) fl MCH 29.7 (25.7-32.2) pg MCHC 34.7 (32.2-35.5) g/dl RDW Std Deviation 43.8 (35.1-43.9) fL Plt Count 269 D (163-337) K/mm3 MPV 9.0 L (9.4-12.3) fl Neut % (Auto) 80.9 H (34.0-67.9) % Lymph % (Auto) 5.4 L (21.8-53.1) % [place] % (Auto) 11.4 (5.3-12.2) % Eos % (Auto) 0.2 L (0.8-7.0) Baso % (Auto) 0.1 (0.1-1.2) % Neut # (Auto) 9.81 H (1.78-5.38) K/mm3 Lymph # (Auto) 0.65 L (1.32-3.57) K/mm3 [place] # (Auto) 1.38 H (0.30-0.82) K/mm3 Eos # (Auto) 0.02 L (0.04-0.54) K/mm3 Baso # (Auto) 0.01 (0.01-0.08) K/mm3 Manual Slide Review Abnormal smear Puncture Site Rt radial ABG pH 7.44 (7.35-7.45) ABG pCO2 36.3 (35.0-45.0) mmHg ABG pO2 70.0 L (80.0-100.0) mmHg ABG HCO3 24.5 (22.0-26.0) meq/L ABG O2 Saturation 92.8 L (96.0-97.0) % ABG Base Excess 1.1 (-2-2.0) Jose Test Positive O2 Delivery Device Nasal cannula Oxygen Flow Rate 3.0 FiO2 0.00 L (21.00-100.00) % Sodium 125 L (136-145) mEq/L Potassium 4.7 (3.5-5.1) mEq/L Chloride 90 L (98-107) mEq/L Carbon Dioxide 26 (21-32) mEq/L Anion Gap 13.7 (5-15) BUN 57 H D (7-18) mg/dL Creatinine 2.3 H D (0.7-1.3) mg/dL Est Cr Clr Drug Dosing 25.20 mL/min Estimated GFR (MDRD) 28 (>60) mL/min BUN/Creatinine Ratio 24.8 H (14-18) Glucose 145 H (83-115) mg/dL Lactic Acid (0.4-2.0) mmol/L Calcium 9.0 (8.5-10.1) mg/dL Magnesium 2.0 (1.8-2.4) mg/dl Total Bilirubin 1.2 H (0.2-1.0) mg/dL AST 62 H (15-37) U/L ALT 54 (16-63) U/L Alkaline Phosphatase 82 (46-116) U/L Troponin I 0.092 H* (0.00-0.056) ng/mL Total Protein 6.8 (6.4-8.2) g/dl Albumin 2.2 L (3.4-5.0) g/dl Globulin 4.6 gm/dL Albumin/Globulin Ratio 0.5 L (1-2) Urine Color (Yellow) Urine Appearance (Clear) Urine pH (5.0-8.0) Ur Specific [place] (1.005-1.030) Urine Protein (Negative) Urine Glucose (UA) (Negative) Urine Ketones (Negative) Urine Occult Blood (Negative) Urine Nitrite (Negative) Urine Bilirubin (Negative) Urine Urobilinogen (0.2-1.0) Ur Leukocyte Esterase (Negative) Urine RBC (0-5) /hpf Urine WBC (0-5) /hpf Ur Epithelial Cells (0-5) /hpf Urine Bacteria (FEW) /hpf Urine Mucus (FEW) /hpf 05/15/20 05/15/20 Range/Units 17:00 17:45 WBC (4.23-9.07) K/mm3 RBC (4.63-6.08) M/mm3 Hgb (13.7-17.5) gm/dl Hct (40.1-51.0) % MCV (79.0-92.2) fl MCH (25.7-32.2) pg MCHC (32.2-35.5) g/dl RDW Std Deviation (35.1-43.9) fL Plt Count (163-337) K/mm3 MPV (9.4-12.3) fl Neut % (Auto) (34.0-67.9) % Lymph % (Auto) (21.8-53.1) % [place] % (Auto) (5.3-12.2) % Eos % (Auto) (0.8-7.0) Baso % (Auto) (0.1-1.2) % Neut # (Auto) (1.78-5.38) K/mm3 Lymph # (Auto) (1.32-3.57) K/mm3 [place] # (Auto) (0.30-0.82) K/mm3 Eos # (Auto) (0.04-0.54) K/mm3 Baso # (Auto) (0.01-0.08) K/mm3 Manual Slide Review Puncture Site ABG pH (7.35-7.45) ABG pCO2 (35.0-45.0) mmHg ABG pO2 (80.0-100.0) mmHg ABG HCO3 (22.0-26.0) meq/L ABG O2 Saturation (96.0-97.0) % ABG Base Excess (-2-2.0) Jose Test O2 Delivery Device Oxygen Flow Rate FiO2 (21.00-100.00) % Sodium (136-145) mEq/L Potassium (3.5-5.1) mEq/L Chloride (98-107) mEq/L Carbon Dioxide (21-32) mEq/L Anion Gap (5-15) BUN (7-18) mg/dL Creatinine (0.7-1.3) mg/dL Est Cr Clr Drug Dosing mL/min Estimated GFR (MDRD) (>60) mL/min BUN/Creatinine Ratio (14-18) Glucose (83-115) mg/dL Lactic Acid 1.2 (0.4-2.0) mmol/L Calcium (8.5-10.1) mg/dL Magnesium (1.8-2.4) mg/dl Total Bilirubin (0.2-1.0) mg/dL AST (15-37) U/L ALT (16-63) U/L Alkaline Phosphatase (46-116) U/L Troponin I (0.00-0.056) ng/mL Total Protein (6.4-8.2) g/dl Albumin (3.4-5.0) g/dl Globulin gm/dL Albumin/Globulin Ratio (1-2) Urine Color Yellow (Yellow) Urine Appearance Clear (Clear) Urine pH 5.5 (5.0-8.0) Ur Specific [place] > or = 1.030 (1.005-1.030) Urine Protein Negative (Negative) Urine Glucose (UA) Negative (Negative) Urine Ketones Negative (Negative) Urine Occult Blood Negative (Negative) Urine Nitrite Negative (Negative) Urine Bilirubin Negative (Negative) Urine Urobilinogen 0.2 (0.2-1.0) Ur Leukocyte Esterase Negative (Negative) Urine RBC 0-5 (0-5) /hpf Urine WBC 0-5 (0-5) /hpf Ur Epithelial Cells 0-5 (0-5) /hpf Urine Bacteria Rare (FEW) /hpf Urine Mucus Rare (FEW) /hpf Meds: Medications Generic Name Dose Route Start Last Admin Trade Name Freq PRN Reason Stop Dose Admin Acetaminophen 650 mg 05/15/20 19:48 Tylenol PO Q4H PRN Pain/Fever Albuterol 2.5 mg 05/15/20 19:48 Proventil Neb Soln NEB Q15M PRN Shortness of Breath Artificial Tears 1 - 2 ml 05/15/20 19:48 Refresh Liquigel 1% EYEBOTH QID PRN Dry Eyes Protocol Atropine Sulfate 0 ml 05/15/20 19:48 Atropine 1% Ophth Soln SL Q1H PRN Resp. secretions or congestion Glucose Oxid/Lactoperoxid/Muramidas 0 gm 05/15/20 19:48 Biotene Oralbalance Gel MUCMEM ASDIRECTED PRN dry mouth Haloperidol Lactate 0.5 mg 05/15/20 19:48 Haldol IVPUSH Q1H PRN delirium or restlessness Lorazepam 0.5 mg 05/15/20 19:48 Ativan IVPUSH Q15M PRN Anxiety Metoclopramide HCl 10 mg 05/15/20 19:48 Reglan PO Q6H PRN Nausea Metoclopramide HCl 10 mg 05/15/20 19:48 Reglan IVPUSH Q6H PRN Nausea Miscellaneous Information 1 ea 05/18/20 20:30 Remove Patch TRDERM Q72H MANUEL Morphine Sulfate 1 mg 05/15/20 19:48 Morphine IVPUSH Q30M PRN Pain or Shortness of breath Ondansetron HCl 4 mg 05/15/20 19:48 Zofran Odt PO Q8H PRN Nausea Ondansetron HCl 4 mg 05/15/20 19:48 Zofran IVPUSH Q8H PRN Nausea Scopolamine 1.5 mg 05/15/20 19:48 Transderm-Scop TRDERM Q72H PRN Secretions Discontinued Medications Generic Name Dose Route Start Last Admin Trade Name Freq PRN Reason Stop Dose Admin Lactated Ringer's 1,000 mls @ 999 mls/hr 05/15/20 16:47 05/15/20 16:55 Ringers, Lactated IV 05/15/20 17:47 999 mls/hr .BOLUS ONE Administration Lactated Ringer's 1,000 mls @ 999 mls/hr 05/15/20 18:25 05/15/20 18:43 Ringers, Lactated IV 05/15/20 19:25 999 mls/hr .BOLUS ONE Administration - Re-Assessments/Exams Free Text/Narrative Re-Assessment/Exam: 05/15/20 18:47 EKG nondiagnostic he is got a sinus tachycardia asked x-ray shows no significant change perhaps improvement from the of this month. Labs are coming in his troponins minimally elevated lactic acid is 1.[address] Cardona, our hospitalist, who will assume care the patient did receive a liter of fluid immediately his pulse did come down to about 106-107 from 117 his blood pressure is much better. We will put an order in for second liter of LR to reach 30 cc/kg he will need about 2300 cc. 05/15/20 19:[address] Cardona the patient will be placed on comfort care only here in the hospital Departure - Departure Time of Disposition: 18:51 Disposition: Admitted As Inpatient 66 Clinical Impression: Septic shock, Renal insufficiency, Dehydration, Cancer of left lung - Discharge Information Sepsis Event Note (ED) - Evaluation Sepsis Screening Result: Possible Severe Sepsis Risk - Focused Exam Vital Signs: Vital Signs Temp Temp Pulse Resp BP Pulse Ox 05/15/20 17:50 37.7 C 108 H 22 H 121/69 93 L 05/15/20 16:31 37.4 C 116 H 29 H 94/58 L 91 L - My Orders Last 24 Hours: My Active Orders 05/15/20 10:17 CORONAVIRUS COVID-19 ASH [MOLEC] Stat 05/15/20 16:36 EKG Documentation Completion [RC] STAT Blood Culture x2 Reflex Set [OM.PC] Stat 05/15/20 17:00 CULTURE BLOOD [BC] Stat 05/15/20 17:05 CULTURE BLOOD [BC] Stat - Assessment/Plan Last 24 Hours: My Active Orders 05/15/20 10:17 CORONAVIRUS COVID-19 ASH [MOLEC] Stat 05/15/20 16:36 EKG Documentation Completion [RC] STAT Blood Culture x2 Reflex Set [OM.PC] Stat 05/15/20 17:00 CULTURE BLOOD [BC] Stat 05/15/20 17:05 CULTURE BLOOD [BC] Stat
[2020-05-15] MEDS ORDERED: Lactated Ringers 1,000 ML IV ONE ×2 (16:47→18:25)
--- NOTE | 2020-05-15 18:59 | CR ---
Chest: Portable view of the chest was obtained. Comparison: Prior chest x-ray of 05/10/20. Consolidating mass is noted within the left upper chest which is stable. Lungs otherwise are clear. Heart size is normal. Bony structures are unremarkable. Impression: 1. Consolidating mass within left upper chest which is stable. 2. Nothing acute is otherwise seen. Diagnostic code #3 This report was dictated in MDT
[2020-05-15] MEDS ORDERED: LORazepam 2 MG/ML SDV IVPUSH PRN (19:48)
[2020-05-15] MEDS ORDERED: Carboxymethylcellulose Sodium 1% Ophth Gel 15 ML Bottle EYEBOTH PRN (19:48)
[2020-05-15] MEDS ORDERED: Ondansetron 4 MG/2 ML SDV IVPUSH PRN (19:48)
[2020-05-15] MEDS ORDERED: Acetaminophen 325 MG Tab PO PRN (19:48)
[2020-05-15] MEDS ORDERED: Metoclopramide 10 MG/2 ML SDV IVPUSH PRN (19:48)
[2020-05-15] MEDS ORDERED: Morphine 2 MG/ML SYRINGE IVPUSH PRN (19:48)
[2020-05-15] MEDS ORDERED: Haloperidol Lactate 5 MG/ML SDV IVPUSH PRN (19:48)
[2020-05-15] MEDS ORDERED: Ondansetron 4 MG Tab.DIS PO PRN (19:48)
[2020-05-15] MEDS ORDERED: Metoclopramide 10 MG Tab PO PRN (19:48)
[2020-05-15] MEDS ORDERED: Lactoperoxi/Gluc Oxid/Pot Thio 42 GM Tube MUCMEM PRN (19:48)
[2020-05-15] MEDS ORDERED: Albuterol 0.083% 2.5 MG/3 ML Neb Soln NEB PRN (19:48)
[2020-05-15] MEDS ORDERED: Scopolamine 1.5 MG Transdermal Patch TRDERM PRN (19:48)
--- NOTE | 2020-05-15 19:57 | PCM.HP.2 ---
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 During that admission she was evaluated by physical therapy who recommended placement to group home facility at which time applications were sent and patient was discharged to [facility] on 05/13. Upon discharge patient was alert and oriented. Eyes Per staff reports on day of discharge patient was stable however the day af ter in the morning while having breakfast he started choking which required a manual removal of food from his mouth by nursing staff. After this patient's mental status and alertness level steadily started to decline to the point where he was unresponsive today for which she was brought to the emergency department for evaluation. - Related Data Allergies/Adverse Reactions: Allergies Allergy/AdvReac Type Severity Reaction Status Date / Time levofloxacin Allergy Severe Cannot Verified 05/15/20 16:35 Remember tamsulosin [From Flomax] AdvReac Severe Breast Verified 05/15/20 16:35 Tenderness Home Medications: Home Meds Albuterol Sulfate [Albuterol Sulfate Hfa] 1 inh INH Q6H PRN 02/07/19 [History] Fish Oil/[place]-3 Fatty Acids [Fish Oil 1,000 MG] 1,000 mg PO DAILY 02/07/19 [History] Gabapentin [Neurontin] 300 mg PO TID 02/07/19 [History] Hydrocodone/Acetaminophen [Hydrocodone-Acetamin 5-325 mg] 1 - 2 tab PO Q6H PRN 02/07/19 [History] Omeprazole Magnesium [Prilosec Otc] 20 mg PO BID 02/07/19 [History] Sertraline [Zoloft] 25 mg PO DAILY 02/07/19 [History] Umeclidinium [place] [Incruse Ellipta*] 62.5 mcg IH DAILY 02/08/19 [History] Cartilage/Collagen/Bor/Hyalur [Joint Health Tablet] 1 tab PO DAILY 05/07/20 [History] Cod Liver Oil 5 ml PO DAILY 05/07/20 [History] Fluticasone/Vilanterol [Breo Ellipta 100-25 MCG Inhalation Kit] 1 cap INH DAILY 05/07/20 [History] Gabapentin [Neurontin] 600 mg PO BEDTIME 05/07/20 [History] Lidocaine 4% [LMX 4] 1 gm TOP TID PRN 05/07/20 [History] Lisinopril/Hydrochlorothiazide [Lisinopril-HCTZ 10-12.5 MG] 1 tab PO DAILY 05/07/20 [History] Benzonatate [Tessalon Perle] 100 mg PO TID #90 capsule 05/13/20 [Rx] Past Medical History HEENT History: Reports: Hard of Hearing, Impaired Vision Cardiovascular History: Reports: Hypertension Respiratory History: Reports: Pneumonia, Recurrent, Other (See Below) Other Respiratory History: lung cancer Gastrointestinal History: Reports: GERD Other Gastrointestinal History: EGD in [id number] Genitourinary History: Reports: BPH Musculoskeletal History: Reports: None 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, Peripheral Psychiatric History: Reports: None, Depression Endocrine/Metabolic History: Reports: Hypothyroidism Hematologic History: Reports: Other (See Below) Other Immunologic History: chemo induced neuropenia Oncologic (Cancer) History: Reports: Lung Other Oncologic History: Lung cancer 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 Other Dermatologic History: skin cancer on face and head- Dr Sexton in [place] - Infectious Disease History Infectious Disease History: Reports: None - Past Surgical History HEENT Surgical History: Reports: None Cardiovascular Surgical History: Reports: None Respiratory Surgical History: Reports: Lung Biopsies Other Respiratory Surgeries/Procedures: Bipopsy March 08 GI Surgical History: Reports: None Male Surgical History: Reports: None Endocrine Surgical History: Reports: None Neurological Surgical History: Reports: None Musculoskeletal Surgical History: Reports: None Oncologic Surgical History: Reports: None Social & Family History - Family History Family Medical History: Noncontributory - Tobacco Use Smoking Status *Q: Unknown Ever Smoked - Caffeine Use Caffeine Use: Reports: Soda - Living Situation & Occupation Living situation: Reports: Single Occupation: Retired H&P Review of Systems - Review of Systems: Review Of Systems: Unable To Obtain Reason Not Obtained: decreased responsiveness Exam - Exam Exam: See Below - Vital Signs Vital Signs: Last Vital Signs Temp 99.8 F 05/15/20 17:50 Pulse 108 H 05/15/20 17:50 Resp 22 H 05/15/20 17:50 BP 121/69 07/25/20 17:50 Pulse Ox 93 L 05/15/20 17:50 Weight: 76.657 kg - Exam Quality Assessment: Supplemental Oxygen, Other (audible gargling) General: Lethargic HEENT: No: Mucosa Moist & [place] (dry) Neck: Supple, Trachea Midline, +2 Carotid Pulse wo Bruit. No: Lymphadenopathy Lungs: Decreased Breath Sounds, Crackles, Rales, Rhonchi. No: Rub, Stridor, Wheezing Cardiovascular: Regular Rhythm, Tachycardia. No: Systolic Murmur, Diastolic Murmur, Rubs, Gallop/S3, Gallop/S4 GI/Abdominal Exam: Soft, Distended, Abnormal Bowel Sounds Peripheral Pulses: 1+: Brachial (L), Brachial (R) Skin: Warm, Dry - Patient Data Result Diagrams: 05/15/20 17:00 05/15/20 17:00 Sepsis Event Note - Evaluation Sepsis Screening Result: Possible Severe Sepsis Risk - Problem List (1) Comfort measures only status SNOMED Code(s): 28945234535091 ICD Code: Z51.5 - ENCOUNTER FOR PALLIATIVE CARE Status: Acute Current Visit: Yes (2) Altered mental status SNOMED Code(s): 902864961 ICD Code: R41.82 - ALTERED MENTAL STATUS, UNSPECIFIED Status: Acute Current Visit: Yes (3) Carcinoma of lung SNOMED Code(s): 417838683 ICD Code: C34.90 - MALIGNANT NEOPLASM OF UNSP PART OF UNSP BRONCHUS OR LUNG Status: Acute Current Visit: No Qualifiers: Laterality: left Qualified Code(s): C34.92 - Malignant neoplasm of unspecified part of left bronchus or lung (4) Former smoker SNOMED Code(s): 1388426 ICD Code: Z87.891 - PERSONAL HISTORY OF NICOTINE DEPENDENCE Status: Acute Current Visit: No (5) HTN (hypertension) SNOMED Code(s): 40285825 ICD Code: I10 - ESSENTIAL (PRIMARY) HYPERTENSION Status: Acute Current Visit: No (6) Hypoalbuminemia SNOMED Code(s): 914639555 ICD Code: E88.09 - OTH DISORDERS OF PLASMA-PROTEIN METABOLISM, NEC Status: Acute Current Visit: No (7) Hyponatremia SNOMED Code(s): 47887129 ICD Code: E87.1 - HYPO-OSMOLALITY AND HYPONATREMIA Status: Acute Current Visit: No (8) Hypothyroidism SNOMED Code(s): 74969968 ICD Code: E03.9 - HYPOTHYROIDISM, UNSPECIFIED Status: Acute Current Visit: No (9) Metastasis to lymph nodes Status: Acute Current Visit: No (10) Metastatic primary lung cancer SNOMED Code(s): 18449995, 155674413 ICD Code: C34.90 - MALIGNANT NEOPLASM OF UNSP PART OF UNSP BRONCHUS OR LUNG Status: Acute Current Visit: No (11) Non-small cell cancer of left lung SNOMED Code(s): 965159502 ICD Code: C34.92 - MALIGNANT NEOPLASM OF UNSP PART OF LEFT BRONCHUS OR LUNG Status: Acute Current Visit: No (12) Physical deconditioning SNOMED Code(s): 57838103316929 ICD Code: R53.81 - OTHER MALAISE Status: Acute Current Visit: No (13) Volume depletion SNOMED Code(s): 376293291 ICD Code: E86.9 - VOLUME DEPLETION, UNSPECIFIED Status: Acute Current Visit: Yes (14) Acute kidney injury SNOMED Code(s): 05758889, 31145773 ICD Code: N17.9 - ACUTE KIDNEY FAILURE, UNSPECIFIED Status: Acute Current Visit: Yes Problem List Initiated/Reviewed/Updated: Yes Assessment/Plan Comment:: Recently admitted for pneumonia and UTI for which he completed treatment Discharged to snf Altered mental status starting day after discharge with significantly decreased responsiveness that only continued to worsen for which she was brought to the emergency department Case presented to me by ED physician who stated patient was unarousable upon his evaluation Lab work was evaluated and he was found to have leukocytosis, hyponatremia, acute kidney injury all likely from volume depletion secondary to decreased oral intake Patient was also found to be hypotensive and tachycardic upon admission to the emergency department both of which improved with volume repletion When I arrived into patient's room patient was unarousable At that time I proceeded to talk to her [id number] Shima who was in the room who provided me information stated above She requested we call patient's daughter Lou. During the conversation with daughter she voiced concerns for patient not having made any decisions for end-of-life care during previous attempts from her to discuss with him, last one in mid March of this year The decision was made that patient was to remain full code until the rest of his family got here when a new conversation would be had regarding level of care After conversation with daughter I proceeded to evaluate patient and found him to be responsive, he opened his eyes as soon as I called out his name An extensive conversation was held with patient regarding his current health status and goals of care I explained to him that due to his comorbidities and active neoplastic processes prognosis was very poor I also discussed different CODE STATUS including DO NOT INTUBATE and no CPR. Explained to patient what intubation and CPR entailed extensively and he voiced understanding Patient voiced wanting to be made comfortable, at which time I proceeded to explain what him being made comfortable meant and this included no active interventions except for symptom control Patient voiced understanding on 4 different location and requested to made comfort measures only status After this I again explained to patient that the management plan would be to control his symptoms including shortness of breath, pain, anxiety or any other symptoms that would arise and we would not be pursuing any active treatment for new conditions and patient voiced complete understanding on this subject During conversation I also asked patient regarding his designated healthcare proxy, he named his [id number]-xyv Shima Ortega as the person he wanted to make all of his decision PLAN Comfort measures only status Regular suctioning PRN medications for symptom control Family members are allowed to visit patient however only 2 at a time and for no more than 30 minutes No prophylaxis indicated Regular diet, patient can eat whatever he wants Bed mobility as tolerated Vital signs with each shift Avoid unnecessary interruptions We will discuss palliative care consult in the morning CODE STATUS: Comfort measures only status DISPOSITION Patient will be admitted for comfort measures with stabilization and referral to palliative care if feasible. - Mortality Measure Prognosis:: Poor
[2020-05-16] MEDS: Glycopyrrolate 1 MG Tab PO SCH ×3 (08:46→21:43)
[2020-05-16] MEDS ORDERED: Loperamide 2 MG Cap PO PRN (12:31)
[2020-05-16] MEDS ORDERED: Loperamide 2 MG Cap PO ONE (13:00)
--- NOTE | 2020-05-16 14:00 | PCM.PN ---
- General Info Date of Service: 05/16/20 Subjective Update: OK night Slept well Asked for breakfast this AM and ate a couple of bites Still having audible rattling and gargling cough States he feels better than yesterday - Patient Data Vitals - Most Recent: Last Vital Signs Temp 98.1 F 05/16/20 08:18 Pulse 110 H 05/16/20 08:18 Resp 26 H 05/16/20 08:18 BP 102/69 05/16/20 08:18 Pulse Ox 95 05/16/20 08:18 Weight - Most Recent: 76.204 kg - Exam Quality Assessment: Supplemental Oxygen General: Alert, Oriented, Cooperative, No Acute Distress HEENT: Mucous Membr. Moist/[place] Neck: Supple, Trachea Midline, No JVD, No Thyromegaly. No: Lymphadenopathy Lungs: Clear to Auscultation, Normal Respiratory Effort, Rhonchi, Other (audible gargling cough, unable to expectorate). No: Crackles, Rales, Rub, Stridor, Wheezing Cardiovascular: Regular Rate, Regular Rhythm. No: Murmurs, Gallops, Rubs GI/Abdominal Exam: Normal Bowel Sounds, Soft, Non-Tender, Distended Peripheral Pulses: 1+: Dorsalis Pedis (L), Dorsalis Pedis (R), 2+: Radial (L), Radial (R) Skin: Dry, Cool Neurological: No New Focal Deficit Sepsis Event Note - Evaluation Sepsis Screening Result: Severe Sepsis Risk - Problem List & Annotations (1) Comfort measures only status SNOMED Code(s): 59488008406395 Code(s): Z51.5 - ENCOUNTER FOR PALLIATIVE CARE Status: Acute Current Visit: Yes (2) Altered mental status SNOMED Code(s): 534823440 Code(s): R41.82 - ALTERED MENTAL STATUS, UNSPECIFIED Status: Acute Current Visit: Yes (3) Carcinoma of lung SNOMED Code(s): 943473250 Code(s): C34.90 - MALIGNANT NEOPLASM OF UNSP PART OF UNSP BRONCHUS OR LUNG Status: Acute Current Visit: No Qualifiers: Laterality: left Qualified Code(s): C34.92 - Malignant neoplasm of unspecified part of left bronchus or lung (4) Former smoker SNOMED Code(s): 0062419 Code(s): Z87.891 - PERSONAL HISTORY OF NICOTINE DEPENDENCE Status: Acute Current Visit: No (5) HTN (hypertension) SNOMED Code(s): 54489494 Code(s): I10 - ESSENTIAL (PRIMARY) HYPERTENSION Status: Acute Current Visit: No (6) Hypoalbuminemia SNOMED Code(s): 646787694 Code(s): E88.09 - OTH DISORDERS OF PLASMA-PROTEIN METABOLISM, NEC Status: Acute Current Visit: No (7) Hyponatremia SNOMED Code(s): 92582308 Code(s): E87.1 - HYPO-OSMOLALITY AND HYPONATREMIA Status: Acute Current Visit: No (8) Hypothyroidism SNOMED Code(s): 47634158 Code(s): E03.9 - HYPOTHYROIDISM, UNSPECIFIED Status: Acute Current Visit: No (9) Metastasis to lymph nodes Status: Acute Current Visit: No (10) Metastatic primary lung cancer SNOMED Code(s): 71700714, 797090946 Code(s): C34.90 - MALIGNANT NEOPLASM OF UNSP PART OF UNSP BRONCHUS OR LUNG Status: Acute Current Visit: No (11) Non-small cell cancer of left lung SNOMED Code(s): 290596212 Code(s): C34.92 - MALIGNANT NEOPLASM OF UNSP PART OF LEFT BRONCHUS OR LUNG Status: Acute Current Visit: No (12) Physical deconditioning SNOMED Code(s): 34929488673578 Code(s): R53.81 - OTHER MALAISE Status: Acute Current Visit: No (13) Volume depletion SNOMED Code(s): 542501716 Code(s): E86.9 - VOLUME DEPLETION, UNSPECIFIED Status: Acute Current Visit: Yes (14) Acute kidney injury SNOMED Code(s): 10479325, 19487007 Code(s): N17.9 - ACUTE KIDNEY FAILURE, UNSPECIFIED Status: Acute Current Visit: Yes - Problem List Review Problem List Initiated/Reviewed/Updated: Yes - Assessment Assessment:: 05/15/20 - Recently admitted for pneumonia and UTI for which he completed treatment - Discharged to senior care - Altered mental status starting day after discharge with significantly decreased responsiveness that only continued to worsen for which she was brought to the emergency department - Case presented to me by ED physician who stated patient was unarousable upon his evaluation - Lab work was evaluated and he was found to have leukocytosis, hyponatremia, acute kidney injury all likely from volume depletion secondary to decreased oral intake - Patient was also found to be hypotensive and tachycardic upon admission to the emergency department both of which improved with volume repletion - When I arrived into patient's room patient was unarousable - At that time I proceeded to talk to her fuirnkwh-ma-puv Shima who was in the room who provided me information stated above - She requested we call patient's daughter Lou. - During the conversation with daughter she voiced concerns for patient not having made any decisions for end-of-life care during previous attempts from her to discuss with him, last one in mid March of this year - The decision was made that patient was to remain full code until the rest of his family got here when a new conversation would be had regarding level of care - Lou did state that patient had mentioned in prior occasions that needing a handful of pills daily to survive was not a "good way to be alive" - After conversation with daughter I proceeded to evaluate patient and found him to be responsive, he opened his eyes as soon as I called out his name - An extensive conversation was held with patient regarding his current health status and goals of care I explained to him that due to his comorbidities and active neoplastic processes prognosis was very poor I also discussed different CODE STATUS including DO NOT INTUBATE and no CPR. Explained to patient what intubation and CPR entailed extensively and he voiced understanding Patient voiced wanting to be made comfortable, at which time I proceeded to explain what him being made comfortable meant and this included no active interventions except for symptom control Patient voiced understanding on 4 different location and requested to made comfort measures only status After this I again explained to patient that the management plan would be to - Control his symptoms including shortness of breath, pain, anxiety or any other symptoms that would arise and - We would not be pursuing any active treatment for new conditions and patient voiced complete understanding on this subject During conversation I also asked patient regarding his designated healthcare proxy, he named his yczcdool-yg-pzh Shima Ortega as the person he wanted to make all of his decisions regarding his health care 05/16/20 - Patient had an okay night, he slept most of it - He states his symptoms are still present but are better than yesterday including his cough - Conversation was had with some of his children including Mitchel Oneal and his Shima as well as Lou on the phone - Lou voiced concerns for patient's emotional status. - She states she has been noticed a significant constant decline in patient's mood starting about 2 months ago when he was told by the city that he had to get rid of some of his things. - After this daughter states that he had some suicidal and homicidal ideation - She voiced being concerned that at that time the patient was giving up - Is wondering if patient would benefit from being started on antidepressants and or Ativan for anxiety - I explained that during previous admission patient had an episode of altered mental status after being given Ativan. - Also explained that his altered mental status could be secondary to significant changes in the past month - He has gone from living at home to spending 7 days in the hospital, then transferred to a senior care for 2 days and coming back to the hospital - All these changes have a significant effect on patient's ability to stay oriented and aware of his surroundings - I did inform them that no repeat blood work was performed due to patient's decision of a focusing on comfort care -Discussed the need of a palliative care consult to discuss logistics and plan moving forward, they voiced understanding -Explained it is important that however many family members are available for the conversation tomorrow, they should be there to avoid miscommunications -Patient has 7 children, 5 of which are - Guilherme, single, Belle; Bonny, Avelino Chung; Brissa, Avelino Lamb; Mitchel, Ade, Belle; Lou, single, [place]; Mansi, [facility]; Kimmy, Nomi, [place] - Of these Lou is the only one who is still in [place] - Upon evaluation of patient - Confirmed the fact that patient wishes to remain comfort care status with treatment only for his symptoms - Discussed option of getting more blood work to see where his electrolytes and kidney function are, however patient declined this - Discussed consultation with palliative care to which he responded yes - Decision was made to have a family meeting tomorrow at 2 PM so that family members can asked her questions and patient can express his wishes. - Family members did request specifically that top case assembler Esther (who is a friend of the family) was not a part of the care team due to the fact that they want this process to be as objective as possible regarding the care team - Plan Plan:: PLAN Comfort measures only status Regular suctioning PRN medications for symptom control Family members are allowed to visit patient however only 2 at a time and for no more than 30 minutes No prophylaxis indicated Regular diet, patient can eat whatever he wants Bed mobility as tolerated Vital signs with each shift Avoid unnecessary interruptions We will discuss palliative care consult in the morning CODE STATUS: Comfort measures only status DISPOSITION Patient will be admitted for comfort measures with stabilization and referral to palliative care if feasible.
[2020-05-17] MEDS: Glycopyrrolate 1 MG Tab PO SCH ×4 (02:50→19:57)
[2020-05-17] MEDS: Atropine 1% Ophth Soln 5 ML BOTTLE SL PRN (15:02)
--- NOTE | 2020-05-17 15:56 | PCM.PN ---
- General Info Date of Service: 05/17/20 Subjective Update: Slept OK No complaints Eating OK - Patient Data Vitals - Most Recent: Last Vital Signs Temp 99.7 F 05/17/20 08:03 Pulse 107 H 05/17/20 08:03 Resp 29 H 05/17/20 08:03 BP 109/71 05/17/20 08:03 Pulse Ox 99 05/17/20 08:03 Weight - Most Recent: 76.204 kg - Exam Quality Assessment: Supplemental Oxygen General: Alert, Cooperative, No Acute Distress Cardiovascular: Regular Rate, Regular Rhythm GI/Abdominal Exam: Soft, Non-Tender Extremities: Slow Capillary Refill Peripheral Pulses: 2+: Radial (L), Radial (R) Neurological: No New Focal Deficit Sepsis Event Note - Evaluation Sepsis Screening Result: Severe Sepsis Risk - Focused Exam Vital Signs: Vital Signs Temp Pulse Resp BP Pulse Ox 05/17/20 08:03 99.7 F 107 H 29 H 109/71 99 Date Exam was Performed: 05/17/20 Time Exam was Performed: 15:38 - Problem List & Annotations (1) Comfort measures only status SNOMED Code(s): 63420197427751 Code(s): Z51.5 - ENCOUNTER FOR PALLIATIVE CARE Status: Acute Current Visit: Yes (2) Altered mental status SNOMED Code(s): 242564177 Code(s): R41.82 - ALTERED MENTAL STATUS, UNSPECIFIED Status: Acute Current Visit: Yes (3) Carcinoma of lung SNOMED Code(s): 095602633 Code(s): C34.90 - MALIGNANT NEOPLASM OF UNSP PART OF UNSP BRONCHUS OR LUNG Status: Acute Current Visit: No Qualifiers: Laterality: left Qualified Code(s): C34.92 - Malignant neoplasm of unspecified part of left bronchus or lung (4) Former smoker SNOMED Code(s): 7569708 Code(s): Z87.891 - PERSONAL HISTORY OF NICOTINE DEPENDENCE Status: Acute Current Visit: No (5) HTN (hypertension) SNOMED Code(s): 78745297 Code(s): I10 - ESSENTIAL (PRIMARY) HYPERTENSION Status: Acute Current Visit: No (6) Hypoalbuminemia SNOMED Code(s): 173642122 Code(s): E88.09 - OTH DISORDERS OF PLASMA-PROTEIN METABOLISM, NEC Status: Acute Current Visit: No (7) Hyponatremia SNOMED Code(s): 94656214 Code(s): E87.1 - HYPO-OSMOLALITY AND HYPONATREMIA Status: Acute Current Visit: No (8) Hypothyroidism SNOMED Code(s): 20327989 Code(s): E03.9 - HYPOTHYROIDISM, UNSPECIFIED Status: Acute Current Visit: No (9) Metastasis to lymph nodes Status: Acute Current Visit: No (10) Metastatic primary lung cancer SNOMED Code(s): 46923785, 350962318 Code(s): C34.90 - MALIGNANT NEOPLASM OF UNSP PART OF UNSP BRONCHUS OR LUNG Status: Acute Current Visit: No (11) Non-small cell cancer of left lung SNOMED Code(s): 502000762 Code(s): C34.92 - MALIGNANT NEOPLASM OF UNSP PART OF LEFT BRONCHUS OR LUNG Status: Acute Current Visit: No (12) Physical deconditioning SNOMED Code(s): 60318901054301 Code(s): R53.81 - OTHER MALAISE Status: Acute Current Visit: No (13) Volume depletion SNOMED Code(s): 904098645 Code(s): E86.9 - VOLUME DEPLETION, UNSPECIFIED Status: Acute Current Visit: Yes (14) Acute kidney injury SNOMED Code(s): 37359718, 88481111 Code(s): N17.9 - ACUTE KIDNEY FAILURE, UNSPECIFIED Status: Acute Current Visit: Yes - Problem List Review Problem List Initiated/Reviewed/Updated: Yes - Assessment Assessment:: 05/15/20 - Recently admitted for pneumonia and UTI for which he completed treatment - Discharged to assisted - Altered mental status starting day after discharge with significantly decreased responsiveness that only continued to worsen for which she was brought to the emergency department - Case presented to me by ED physician who stated patient was unarousable upon his evaluation - Lab work was evaluated and he was found to have leukocytosis, hyponatremia, acute kidney injury all likely from volume depletion secondary to decreased oral intake - Patient was also found to be hypotensive and tachycardic upon admission to the emergency department both of which improved with volume repletion - When I arrived into patient's room patient was unarousable - At that time I proceeded to talk to her chmnguqc-gi-sdm Shima who was in the room who provided me information stated above - She requested we call patient's daughter Lou. - During the conversation with daughter she voiced concerns for patient not having made any decisions for end-of-life care during previous attempts from her to discuss with him, last one in mid March of this year - The decision was made that patient was to remain full code until the rest of his family got here when a new conversation would be had regarding level of care - Lou did state that patient had mentioned in prior occasions that needing a handful of pills daily to survive was not a "good way to be alive" - After conversation with daughter I proceeded to evaluate patient and found him to be responsive, he opened his eyes as soon as I called out his name - An extensive conversation was held with patient regarding his current health status and goals of care I explained to him that due to his comorbidities and active neoplastic processes prognosis was very poor I also discussed different CODE STATUS including DO NOT INTUBATE and no CPR. Explained to patient what intubation and CPR entailed extensively and he voiced understanding Patient voiced wanting to be made comfortable, at which time I proceeded to explain what him being made comfortable meant and this included no active interventions except for symptom control Patient voiced understanding on 4 different location and requested to made comfort measures only status After this I again explained to patient that the management plan would be to - Control his symptoms including shortness of breath, pain, anxiety or any other symptoms that would arise and - We would not be pursuing any active treatment for new conditions and patient voiced complete understanding on this subject During conversation I also asked patient regarding his designated healthcare proxy, he named his ryipcoui-nx-uvw Shima Ortega as the person he wanted to make all of his decisions regarding his health care 05/16/20 - Patient had an okay night, he slept most of it - He states his symptoms are still present but are better than yesterday including his cough - Conversation was had with some of his children including Kimmy, Mitchel and his Shima as well as Lou on the phone - Lou voiced concerns for patient's emotional status. - She states she has been noticed a significant constant decline in patient's mood starting about 2 months ago when he was told by the city that he had to get rid of some of his things. - After this daughter states that he had some suicidal and homicidal ideation - She voiced being concerned that at that time the patient was giving up - Is wondering if patient would benefit from being started on anti depressants and or Ativan for anxiety - I explained that during previous admission patient had an episode of altered mental status after being given Ativan. - Also explained that his altered mental status could be secondary to significant changes in the past month - He has gone from living at home to spending 7 days in the hospital, then transferred to a assisted for 2 days and coming back to the hospital - All these changes have a significant effect on patient's ability to stay oriented and aware of his surroundings - I did inform them that no repeat blood work was performed due to patient's decision of a focusing on comfort care -Discussed the need of a palliative care consult to discuss logistics and plan moving forward, they voiced understanding -Explained it is important that however many family members are available for the conversation tomorrow, they should be there to avoid miscommunications -Patient has 7 children, 5 of which are - Guilherme, single, [place]; Bonny, Avelino Chung; Brissa, Avelino Lamb; Mitchel, Ade, [place]; Lou, single, [place]; Mansi, [facility]; Kimmy, Nomi, [place] - Of these Lou is the only one who is still in [place] - Upon evaluation of patient - Confirmed the fact that patient wishes to remain comfort care status with treatment only for his symptoms - Discussed option of getting more blood work to see where his electrolytes and kidney function are, however patient declined this - Discussed consultation with palliative care to which he responded yes - Decision was made to have a family meeting tomorrow at 2 PM so that family members can asked her questions and patient can express his wishes. - Family members did request specifically that assistant case manager Esther (who is a friend of the family) was not a part of the care team due to the fact that they want this process to be as objective as possible regarding the care team 05/17/20 - Patient had an okay night, is tolerating food - Was started on Imodium yesterday after which he did not have any more diarrhea episodes - Family meeting was had at 2 PM with some of patient's children, social service liaison Geri Israel, assistant case manager Geri Diaz and nurse Luis - I attempted to readdress goals of care with patient however patient was very confused during conversation - Family informed me that they had decided to go home with hospice rather than transfer patient back to assisted - Family informed me that daughter who is a nurse, Lou, was driving in to town to take care of him - Informed family that patient had agreed for palliative care consult and explained logistics of this coordination - Family attempted to readdress this with patient but this appeared to confuse patient more - I was unable to get clear answers from patient - Patient only answered "I do not know" - Patient appeared to be getting more confused so I decided to stop conversation - Explained we would continue with plan that was established yesterday when patient was alert and cooperative with the exception of discharge to home rather than SNF - I requested family step out and moved them to consult room - Informed them that the plan that was going to be followed was the previously agreed upon one - Stated that unless patient specifically requested to have a goals of care conversation again I would not address it as this is only going to confuse him - Patient is to be discharged tomorrow - Plan Plan:: PLAN Comfort measures only status PRN medications for symptom control Family members are allowed to visit patient however only 2 at a time and for no more than 30 minutes No prophylaxis indicated Regular diet, patient can eat whatever he wants Bed mobility as tolerated Vital signs with each shift Avoid unnecessary interruptions CODE STATUS: Comfort measures only status DISPOSITION Patient will remain admitted with discharge to home with hospice once feasible, likely tomorrow.
[2020-05-18] MEDS: Glycopyrrolate 1 MG Tab PO SCH ×4 (02:52→21:05)
[2020-05-18] MEDS ORDERED: guaiFENesin 100 MG/5 ML Soln 10 ML UD Cup PO SCH (16:00)
--- NOTE | 2020-05-18 17:40 | PCM.PN ---
- General Info Date of Service: 05/18/20 Subjective Update: Slept OK Tolerating diet No complaints from patient - Patient Data Vitals - Most Recent: Last Vital Signs Temp 99.0 F 05/18/20 08:31 Pulse 109 H 05/18/20 11:56 Resp 32 H 05/18/20 08:31 BP 146/85 H 05/18/20 08:31 Pulse Ox 99 05/18/20 11:56 Weight - Most Recent: 76.204 kg - Exam General: Alert, Oriented, No Acute Distress, Other (Rest of exam deferred due to comfort care status) HEENT: Mucous Membr. Moist/[place] (dry) Sepsis Event Note - Evaluation Sepsis Screening Result: Severe Sepsis Risk - Problem List & Annotations (1) Comfort measures only status SNOMED Code(s): 75497465443141 Code(s): Z51.5 - ENCOUNTER FOR PALLIATIVE CARE Status: Acute Current Visit: Yes (2) Altered mental status SNOMED Code(s): 180837950 Code(s): R41.82 - ALTERED MENTAL STATUS, UNSPECIFIED Status: Acute Current Visit: Yes (3) Carcinoma of lung SNOMED Code(s): 957825742 Code(s): C34.90 - MALIGNANT NEOPLASM OF UNSP PART OF UNSP BRONCHUS OR LUNG Status: Acute Current Visit: No Qualifiers: Laterality: left Qualified Code(s): C34.92 - Malignant neoplasm of unspecified part of left bronchus or lung (4) Former smoker SNOMED Code(s): 1334254 Code(s): Z87.891 - PERSONAL HISTORY OF NICOTINE DEPENDENCE Status: Acute Current Visit: No (5) HTN (hypertension) SNOMED Code(s): 20909544 Code(s): I10 - ESSENTIAL (PRIMARY) HYPERTENSION Status: Acute Current Visit: No (6) Hypoalbuminemia SNOMED Code(s): 702468902 Code(s): E88.09 - OTH DISORDERS OF PLASMA-PROTEIN METABOLISM, NEC Status: Acute Current Visit: No (7) Hyponatremia SNOMED Code(s): 87782975 Code(s): E87.1 - HYPO-OSMOLALITY AND HYPONATREMIA Status: Acute Current Visit: No (8) Hypothyroidism SNOMED Code(s): 09775945 Code(s): E03.9 - HYPOTHYROIDISM, UNSPECIFIED Status: Acute Current Visit: No (9) Metastasis to lymph nodes Status: Acute Current Visit: No (10) Metastatic primary lung cancer SNOMED Code(s): 41040050, 017066460 Code(s): C34.90 - MALIGNANT NEOPLASM OF UNSP PART OF UNSP BRONCHUS OR LUNG Status: Acute Current Visit: No (11) Non-small cell cancer of left lung SNOMED Code(s): 145048355 Code(s): C34.92 - MALIGNANT NEOPLASM OF UNSP PART OF LEFT BRONCHUS OR LUNG Status: Acute Current Visit: No (12) Physical deconditioning SNOMED Code(s): 85374374367805 Code(s): R53.81 - OTHER MALAISE Status: Acute Current Visit: No (13) Volume depletion SNOMED Code(s): 531064115 Code(s): E86.9 - VOLUME DEPLETION, UNSPECIFIED Status: Acute Current Visit: Yes (14) Acute kidney injury SNOMED Code(s): 41331852, 01964128 Code(s): N17.9 - ACUTE KIDNEY FAILURE, UNSPECIFIED Status: Acute Current Visit: Yes - Problem List Review Problem List Initiated/Reviewed/Updated: Yes - Assessment Assessment:: 05/15/20 - Recently admitted for pneumonia and UTI for which he completed treatment - Discharged to long term - Altered mental status starting day after discharge with significantly decreased responsiveness that only continued to worsen for which she was brought to the emergency department - Case presented to me by ED physician who stated patient was unarousable upon his evaluation - Lab work was evaluated and he was found to have leukocytosis, hyponatremia, acute kidney injury all likely from volume depletion secondary to decreased oral intake - Patient was also found to be hypotensive and tachycardic upon admission to the emergency department both of which improved with volume repletion - When I arrived into patient's room patient was unarousable - At that time I proceeded to talk to her yqrhkhda-re-yom Shima who was in the room who provided me information stated above - She requested we call patient's daughter Lou. - During the conversation with daughter she voiced concerns for patient not having made any decisions for end-of-life care during previous attempts from her to discuss with him, last one in mid March of this year - The decision was made that patient was to remain full code until the rest of his family got here when a new conversation would be had regarding level of care - Lou did state that patient had mentioned in prior occasions that needing a handful of pills daily to survive was not a "good way to be alive" - After conversation with daughter I proceeded to evaluate patient and found him to be responsive, he opened his eyes as soon as I called out his name - An extensive conversation was held with patient regarding his current health status and goals of care I explained to him that due to his comorbidities and active neoplastic processes prognosis was very poor I also discussed different CODE STATUS including DO NOT INTUBATE and no CPR. Explained to patient what intubation and CPR entailed extensively and he voiced understanding Patient voiced wanting to be made comfortable, at which time I proceeded to explain what him being made comfortable meant and this included no active interventions except for symptom control Patient voiced understanding on 4 different location and requested to made comfort measures only status After this I again explained to patient that the management plan would be to - Control his symptoms including shortness of breath, pain, anxiety or any other symptoms that would arise and - We would not be pursuing any active treatment for new conditions and patient voiced complete understanding on this subject During conversation I also asked patient regarding his designated healthcare proxy, he named his cjdxpmyp-tf-und Shima Ortega as the person he wanted to make all of his decisions regarding his health care 05/16/20 - Patient had an okay night, he slept most of it - He states his symptoms are still present but are better than yesterday including his cough - Conversation was had with some of his children including Kimmy, Mitchel and his Shima as well as Lou on the phone - Lou voiced concerns for patient's emotional status. - She states she has been noticed a significant constant decline in patient's mood starting about 2 months ago when he was told by the city that he had to get rid of some of his things. - After this daughter states that he had some suicidal and homicidal ideation - She voiced being concerned that at that time the patient was giving up - Is wondering if patient would benefit from being started on antidepressants and or Ativan for anxiety - I explained that during previous admission patient had an episode of altered mental status after being given Ativan. - Also explained that his altered mental status could be secondary to significant changes in the past month - He has gone from living at home to spending 7 days in the hospital , then transferred to a long term for 2 days and coming back to the hospital - All these changes have a significant effect on patient's ability to stay oriented and aware of his surroundings - I did inform them that no repeat blood work was performed due to patient's decision of a focusing on comfort care -Discussed the need of a palliative care consult to discuss logistics and plan moving forward, they voiced understanding -Explained it is important that however many family members are available for the conversation tomorrow, they should be there to avoid miscommunications -Patient has 7 children, 5 of which are - Guilherme, single, [place]; Bonny, [place], [place]; Brissa, Adonis, [place]; Mitchel, Ade, [place]; Lou, single, [place]; Mansi, [facility]; Kimmy, Nomi, [place] - Of these Lou is the only one who is still in [place] - Upon evaluation of patient - Confirmed the fact that patient wishes to remain comfort care status with treatment only for his symptoms - Discussed option of getting more blood work to see where his electrolytes and kidney function are, however patient declined this - Discussed consultation with palliative care to which he responded yes - Decision was made to have a family meeting tomorrow at 2 PM so that family members can asked her questions and patient can express his wishes. - Family members did request specifically that ed case manager Esther (who is a friend of the family) was not a part of the care team due to the fact that they want this process to be as objective as possible regarding the care team 05/17/20 - Patient had an okay night, is tolerating food - Was started on Imodium yesterday after which he did not have any more diarrhea episodes - Family meeting was had at 2 PM with some of patient's children, social security assessor Geri Israel, ed case manager Geri Diaz and nurse Luis - I attempted to readdress goals of care with patient however patient was very confused during conversation - Family informed me that they had decided to go home with hospice rather than transfer patient back to long term - Family informed me that daughter who is a nurse, Lou, was driving in to town to take care of him - Informed family that patient had agreed for palliative care consult and explained logistics of this coordination - Family attempted to readdress this with patient but this appeared to confuse patient more - I was unable to get clear answers from patient - Patient only answered "I do not know" - Patient appeared to be getting more confused so I decided to stop conversation - Explained we would continue with plan that was established yesterday when patient was alert and cooperative with the exception of discharge to home rather than SNF - I requested family step out and moved them to consult room - Informed them that the plan that was going to be followed was the previously agreed upon one - Stated that unless patient specifically requested to have a goals of care conversation again I would not address it as this is only going to confuse him - Patient is to be discharged tomorrow 05/18/20 - OK night, tolerating diet - Only PRN medication that he required was 1 dose of Atropine - OK to discharge patient but home is being set up, will plan for discharge in the AM - Family present during rounds, all questions answered - Plan Plan:: PLAN Comfort measures only status PRN medications for symptom control Family members are allowed to visit patient however only 2 at a time and for no more than 30 minutes No prophylaxis indicated Regular diet, patient can eat whatever he wants Bed mobility as tolerated Vital signs with each shift Avoid unnecessary interruptions CODE STATUS: Comfort measures only status DISPOSITION Patient will remain admitted with discharge to home with hospice once home is set up. Will plan for DC in AM.
[2020-05-18] MEDS ORDERED: Morphine 2 MG/ML SYRINGE IM PRN (19:39)
[2020-05-18] MEDS ORDERED: Morphine 15 MG Tab.ER PO PRN (19:43)
[2020-05-18] MEDS ORDERED: LORazepam 2 MG/ML SDV IM PRN (19:45)
[2020-05-18] MEDS ORDERED: LORazepam 1 MG Tab PO PRN (19:46)
[2020-05-19] MEDS: guaiFENesin 600 MG Tab.ER PO SCH ×2 (01:01→08:47)
[2020-05-19] MEDS: Glycopyrrolate 1 MG Tab PO SCH ×2 (03:35→08:46)
--- NOTE | 2020-05-19 08:19 | PCM.DCSUM1 ---
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 During that admission she was evaluated by physical therapy who recommended placement to nursing home facility at which time applications were sent and patient was discharged to [facility] on 05/13. Upon discharge patient was alert and oriented. Eyes Per staff reports on day of discharge patient was stable however the day after in the morning while having breakfast he started choking which required a manual removal of food from his mouth by nursing staff. After this patient's mental status and alertness level steadily started to decline to the point where he was unresponsive today for which she was brought to the emergency department for evaluation. Diagnosis: Stroke: No - Discharge Data Discharge Date: 05/19/20 Discharge Disposition: DC/Tfer to Hospice - Home 50 Condition: Good - Referral to Home Health Primary Care Physician: Greg Canales MD - Discharge Diagnosis/Problem(s) (1) Comfort measures only status SNOMED Code(s): 03979177860704 ICD Code: Z51.5 - ENCOUNTER FOR PALLIATIVE CARE Status: Acute (2) Altered mental status SNOMED Code(s): 196278679 ICD Code: R41.82 - ALTERED MENTAL STATUS, UNSPECIFIED Status: Acute (3) Carcinoma of lung SNOMED Code(s): 509767873 ICD Code: C34.90 - MALIGNANT NEOPLASM OF UNSP PART OF UNSP BRONCHUS OR LUNG Status: Acute Qualifiers: Laterality: left Qualified Code(s): C34.92 - Malignant neoplasm of unspecified part of left bronchus or lung (4) Former smoker SNOMED Code(s): 5455530 ICD Code: Z87.891 - PERSONAL HISTORY OF NICOTINE DEPENDENCE Status: Acute (5) HTN (hypertension) SNOMED Code(s): 63152148 ICD Code: I10 - ESSENTIAL (PRIMARY) HYPERTENSION Status: Acute (6) Hypoalbuminemia SNOMED Code(s): 715547252 ICD Code: E88.09 - OTH DISORDERS OF PLASMA-PROTEIN METABOLISM, NEC Status: Acute (7) Hyponatremia SNOMED Code(s): 46092318 ICD Code: E87.1 - HYPO-OSMOLALITY AND HYPONATREMIA Status: Acute (8) Hypothyroidism SNOMED Code(s): 46938129 ICD Code: E03.9 - HYPOTHYROIDISM, UNSPECIFIED Status: Acute (9) Metastasis to lymph nodes Status: Acute (10) Metastatic primary lung cancer SNOMED Code(s): 28518911, 685943841 ICD Code: C34.90 - MALIGNANT NEOPLASM OF UNSP PART OF UNSP BRONCHUS OR LUNG Status: Acute (11) Non-small cell cancer of left lung SNOMED Code(s): 038133488 ICD Code: C34.92 - MALIGNANT NEOPLASM OF UNSP PART OF LEFT BRONCHUS OR LUNG Status: Acute (12) Physical deconditioning SNOMED Code(s): 61911959295366 ICD Code: R53.81 - OTHER MALAISE Status: Acute (13) Volume depletion SNOMED Code(s): 173293035 ICD Code: E86.9 - VOLUME DEPLETION, UNSPECIFIED Status: Acute (14) Acute kidney injury SNOMED Code(s): 26944850, 01620225 ICD Code: N17.9 - ACUTE KIDNEY FAILURE, UNSPECIFIED Status: Acute - Patient Summary/Data Hospital Course: 05/15/20 - Recently admitted for pneumonia and UTI for which he completed treatment - Discharged to snf - Altered mental status starting day after discharge with significantly decreased responsiveness that only continued to worsen for which she was brought to the emergency department - Case presented to me by ED physician who stated patient was unarousable upon his evaluation - Lab work was evaluated and he was found to have leukocytosis, hyponatremia, acute kidney injury all likely from volume depletion secondary to decreased oral intake - Patient was also found to be hypotensive and tachycardic upon admission to the emergency department both of which improved with volume repletion - When I arrived into patient's room patient was unarousable - At that time I proceeded to talk to her [id number] Shima who was in the room who provided me information stated above - She requested we call patient's daughter Lou. - During the conversation with daughter she voiced concerns for patient not having made any decisions for end-of-life care during previous attempts from her to discuss with him, last one in mid March of this year - The decision was made that patient was to remain full code until the rest of his family got here when a new conversation would be had regarding level of care - Lou did state that patient had mentioned in prior occasions that needing a handful of pills daily to survive was not a "good way to be alive" - After conversation with daughter I proceeded to evaluate patient and found him to be responsive, he opened his eyes as soon as I called out his name - An extensive conversation was held with patient regarding his current health status and goals of care I explained to him that due to his comorbidities and active neoplastic processes prognosis was very poor I also discussed different CODE STATUS including DO NOT INTUBATE and no CPR. Explained to patient what intubation and CPR entailed extensively and he voiced understanding Patient voiced wanting to be made comfortable, at which time I proceeded to explain what him being made comfortable meant and this included no active interventions except for symptom control Patient voiced understanding on 4 different location and requested to made comfort measures only status After this I again explained to patient that the management plan would be to - Control his symptoms including shortness of breath, pain, anxiety or any other symptoms that would arise and - We would not be pursuing any active treatment for new conditions and patient voiced complete understanding on this subject During conversation I also asked patient regarding his designated healthcare proxy, he named his mylngdol-ie-hxl Shima Ortega as the person he wanted to make all of his decisions regarding his health care 05/16/20 - Patient had an okay night, he slept most of it - He states his symptoms are still present but are better than yesterday including his cough - Conversation was had with some of his children including Mitchel Oneal and his Shima as well as Lou on the phone - Lou voiced concerns for patient's emotional status. - She states she has been noticed a significant constant decline in patient's mood starting about 2 months ago when he was told by the city that he had to get rid of some of his things. - After this daughter states that he had some suicidal and homicidal ideation - She voiced being concerned that at that time the patient was giving up - Is wondering if patient would benefit from being started on antidepressants and or Ativan for anxiety - I explained that during previous admission patient had an episode of altered mental status after being given Ativan. - Also explained that his altered mental status could be secondary to significant changes in the past month - He has gone from living at home to spending 7 days in the hospital, then transferred to a snf for 2 days and coming back to the hospital - All these changes have a significant effect on patient's ability to stay oriented and aware of his surroundings - I did inform them that no repeat blood work was performed due to patient's decision of a focusing on comfort care -Discussed the need of a palliative care consult to discuss logistics and plan moving forward, they voiced understanding -Explained it is important that however many family members are available for the conversation tomorrow, they should be there to avoid miscommunications -Patient has 7 children, 5 of which are - Guilherme, single, [place]; Bonny, Sheldon, [place]; Brissa, Adonis, [place]vel[place]; Mitchel, Ade, [place]; Lou, single, [place]; Mans[facility]; Kimmy, Nomi, [place] - Of these Lou is the only one who is still in [place] - Upon evaluation of patient - Confirmed the fact that patient wishes to remain comfort care status with treatment only for his symptoms - Discussed option of getting more blood work to see where his electrolytes and kidney function are, however patient declined this - Discussed consultation with palliative care to which he responded yes - Decision was made to have a family meeting tomorrow at 2 PM so that family members can asked her questions and patient can express his wishes. - Family members did request specifically that case mgr Esther (who is a friend of the family) was not a part of the care team due to the fact that they want this process to be as objective as possible regarding the care team 05/17/20 - Patient had an okay night, is tolerating food - Was started on Imodium yesterday after which he did not have any more diarrhea episodes - Family meeting was had at 2 PM with some of patient's children, protective services social worker Geri Israel, case mgr Geri Diaz and nurse Luis - I attempted to readdress goals of care with patient however patient was very confused during conversation - Family informed me that they had decided to go home with hospice rather than transfer patient back to snf - Family informed me that daughter who is a nurse, Lou, was driving in to town to take care of him - Informed family that patient had agreed for palliative care consult and explained logistics of this coordination - Family attempted to readdress this with patient but this appeared to confuse patient more - I was unable to get clear answers from patient - Patient only answered "I do not know" - Patient appeared to be getting more confused so I decided to stop conversation - Explained we would continue with plan that was established yesterday when patient was alert and cooperative with the exception of discharge to home rather than SNF - I requested family step out and moved them to consult room - Informed them that the plan that was going to be followed was the pre viously agreed upon one - Stated that unless patient specifically requested to have a goals of care conversation again I would not address it as this is only going to confuse him - Patient is to be discharged tomorrow 05/18/20 - OK night, tolerating diet - Only PRN medication that he required was 1 dose of Atropine - OK to discharge patient but home is being set up, will plan for discharge in the AM - Family present during rounds, all questions answered - Patient Instructions Diet: Regular Diet as Tolerated Activity: As Tolerated - Discharge Plan *PRESCRIPTION DRUG MONITORING PROGRAM REVIEWED*: No *COPY OF PRESCRIPTION DRUG MONITORING REPORT IN PATIENT CARI: No Prescriptions/Med Rec: Atropine 1% [Atropine 1% Ophth Soln] 3 drop SL Q1H PRN #1 bottle PRN Reason: Resp. secretions or congestion Lactoperoxi/Gluc Oxid/Pot Thio [Biotene Oralbalance Gel] 1 gm MUCMEM ASDIRECTED PRN #1 tube PRN Reason: dry mouth Loperamide [Imodium] 2 mg PO ASDIRECTED PRN #10 cap PRN Reason: Diarrhea guaiFENesin [Mucinex] 600 mg PO Q8H #15 tab.er Carboxymethylcellulose Sodium [Refresh Liquigel 1%] 1 - 2 ml EYEBOTH QID PRN #1 bottle PRN Reason: Dry Eyes Glycopyrrolate [Robinul] 1 mg PO Q6H #20 tablet Scopolamine [Transderm-Scop] 1.5 mg TRDERM Q72H PRN #5 patch PRN Reason: Secretions Home Medications: Home Meds Benzonatate [Tessalon Perle] 100 mg PO TID #90 capsule 05/13/20 [Rx] Atropine 1% [Atropine 1% Ophth Soln] 3 drop SL Q1H PRN #1 bottle 05/19/20 [Rx] Carboxymethylcellulose Sodium [Refresh Liquigel 1%] 1 - 2 ml EYEBOTH QID PRN #1 bottle 07/29/20 [Rx] Glycopyrrolate [Robinul] 1 mg PO Q6H #20 tablet 05/19/20 [Rx] Lactoperoxi/Gluc Oxid/Pot Thio [Biotene Oralbalance Gel] 1 gm MUCMEM ASDIRECTED PRN #1 tube 05/19/20 [Rx] Loperamide [Imodium] 2 mg PO ASDIRECTED PRN #10 cap 05/19/20 [Rx] Scopolamine [Transderm-Scop] 1.5 mg TRDERM Q72H PRN #5 patch 05/19/20 [Rx] guaiFENesin [Mucinex] 600 mg PO Q8H #15 tab.er 05/19/20 [Rx] Oxygen Therapy Mode: Nasal Cannula Oxygen Flow Rate (L/min): 4 Patient Handouts: and Dying, Sepsis, Diagnosis, Adult, End-of-Life Care, Hospice Referrals: Greg Canales MD [Primary Care Provider] - - Discharge Summary/Plan Comment DC Time >30 min.: Yes - General Info Date of Service: 05/19/20 Subjective Update: No reports by nursing No PRN medication use - Patient Data Vitals - Most Recent: Last Vital Signs Temp 99.9 F 05/18/20 21:54 Pulse 122 H 05/18/20 21:54 Resp 28 H 05/18/20 21:54 BP 128/77 05/18/20 21:54 Pulse Ox 96 05/18/20 21:54 Weight - Most Recent: 76.204 kg - Exam General: Reports: Lethargic (arousable) Neck: Reports: Supple, No JVD. Denies: Lymphadenopathy Lungs: Reports: Decreased Breath Sounds, Crackles, Rales, Rhonchi. Denies: Rub, Stridor, Wheezing Cardiovascular: Reports: Regular Rate, Regular Rhythm Physical Findings Comments:: not complete due to comfort status
[2020-05-19] MEDS: Atropine 1% Ophth Soln 5 ML BOTTLE SL PRN (08:46)
== END 2020-05-19 10:30 | disposition hospice, home (50) | DRG 951 ==
LOC: JD.ED 16:26 → JD.MS 19:51 → UNDOADMIN 20:25 → EEVIPCON 20:25 → UNDODISIN 05-19 10:30
PROVIDERS: ADMIT Internal Medicine; ATTEND Internal Medicine
DX: Z51.5 Encounter for palliative care (principal); N17.9 Acute kidney failure, unspecified; C34.92 Malignant neoplasm of unspecified part of left bronchus or lung; E87.1 Hypo-osmolality and hyponatremia; Z66 Do not resuscitate; Z87.891 Personal history of nicotine dependence; R50.9 Fever, unspecified; R65.21 Severe sepsis with septic shock; E86.9 Volume depletion, unspecified; R33.8 Other retention of urine; I95.9 Hypotension, unspecified; N28.9 Disorder of kidney and ureter, unspecified; E86.0 Dehydration; C34.90 Malignant neoplasm of unspecified part of unspecified bronchus or lung; C77.9 Secondary and unspecified malignant neoplasm of lymph node, unspecified; Z20.828 Contact with and (suspected) exposure to other viral communicable diseases; H54.7 Unspecified visual loss; H91.90 Unspecified hearing loss, unspecified ear; I10 Essential (primary) hypertension; D70.1 Agranulocytosis secondary to cancer chemotherapy; Z87.01 Personal history of pneumonia (recurrent); K21.9 Gastro-esophageal reflux disease without esophagitis; N40.0 Benign prostatic hyperplasia without lower urinary tract symptoms; F32.9 Major depressive disorder, single episode, unspecified; E03.9 Hypothyroidism, unspecified; G62.9 Polyneuropathy, unspecified; Z85.828 Personal history of other malignant neoplasm of skin; Z88.1 Allergy status to other antibiotic agents; Z88.8 Allergy status to other drugs, medicaments and biological substances; Z79.899 Other long term (current) drug therapy
CPT/HCPCS: 36415; 36600; 71045; 80053; 81001; 82803; 83605; 83735; 84484; 85025; 87040 ×2; 93005; 96360; 96361; 99285; J7120 ×2; U0002; 87641; 93010; 94760; 99222; 99232; 99239; 99283; A9270-GY